=== PATIENT | female | born 2000 | race Caucasian/White ===

== ENCOUNTER 2024-12-30 14:05 | Emergency (ER) | payer SELFPAY ==
--- OUTSIDE RECORDS SUMMARY | 2024-11-24 05:35 | XMS_ITS | Encounter Summary ---
Author Organization [facility] Address [address] [place] [address] Care Team Providers Care Preforms Laminator Name Role Phone Unavailable Primary Care Provider Unavailabl e Reason for Visit * Reason Comments Oral Swelling Encounter Details Date Type Department Care Team (Late st Contact Info) Description 11/24/2024 5:35 AM EDT - 11/24/2024 8:39 AM EDT Emergency [facility] Emergency Department [address] [place] [address] Angioedema, initial encounter (Primary Dx) Discharge Disposition: Home or Self Care Social History Tobacco Use Types Packs/Day Years Used Date Smoking Tobacco: Never Smokeless Tobacco: Never Alcohol Use Standard Drinks/Week Comments Never 0 (1 standard drink = 0.6 oz pur e alcohol) [facility] Utilities Answer Date Recorded In the past 12 months has e [employer], gas, oil, or water [employer] threatened to shut off services in your home? No 07/31/2024 Hunger Vital Sign Answer Date Recorded Within the past 12 months, y ou worried that your food would run out before you got the money to buy more. Never true 07/31/19 25 Within the past 12 months, t he food you bought just didn't last and you didn't have money to get more. Never true 07/31/2024 PRAPARE - Transportation Answer Date Re corded In the past 12 months, has l ack of transportation kept you from medical appointments or from getting medications? No 11/2024 In the past 12 months, has l ack of transportation kept you from meetings, work, or from getting things needed for daily living? No 07/31/2024 [place] Depression Scale Answer Date Recorded [place] Depression Scale Total 5 08/02/2024 The thought of harming myself has occurred to me . Never 08/02/2024 Housing Stability Vital Sign Answer Benja e Recorded In the last 12 months, was t here a time when you were not able to pay the mortgage or rent on time? No 07/31/2024 In the past 12 months, how m any times have you moved where you were living? 0 07/31/2024 At any time in the past 12 m [facility], were you homeless or living in a care home (including now)? No 07/31/2024 Food Insecurity Answer Date Recorded Within the past 12 months, y ou worried that your food would run out before you got the money to buy more. 1 07/31/2024 Within the past 12 months, t he food you bought just didn't last and you didn't have money to get more. 1 07/31/2024 Interpersonal Safety Domain Source: IP Abuse Scr eening Answer Date Recorded Physical abuse Denies 07/31/2024 Verbal abuse Denies 07/31/2024 Emotional abuse Denies 07/31/2024 Financial abuse Denies 07/31/2024 Sexual abuse Denies 07/31/2024 Comments Unknown Sex and Gender Information Value Date Recorded Sex Assigned at Not on file Legal Sex Female 12:37 PM EDT Gender Identity Not on file Sexual Orientation Not on file documented as of this encounter Last Filed Vital Signs Vital Sign Reading Time Taken Comments Blood Pressure 110/74 11/24/2024 7:52 AM EDT Pulse 74 11/24/2024 7:52 AM EDT Temperature 36.4 C (97.6 F) 11/24/2024 5:43 AM EDT Respiratory Rate 16 11/24/2024 7:52 AM EDT Oxygen Saturation 98% 11/24/2024 7:52 AM EDT Inhaled Oxygen Concentration - - Weight 92.5 kg (204 lb) 11/24/2024 5:43 AM EDT Height 175.3 cm (5' 9 ) 11/24/2024 5:43 AM EDT Body Mass Index 30.13 11/24/2024 5:43 AM EDT documented in this encounter Discharge Instructions * Attachments The following attachments cannot be sent through Care Everywhere. * Angioedema (Iranian) documented in this encounter Medications at Time of Discharge ibuprofen (ADVIL;MOTRIN) 200 MG tablet Take 4 tablets by mouth every 8 hours as needed for Pain 08/02/2024 docusate sodium (COLACE, DULCOLAX) 100 MG CAPS Take 100 mg by mouth 2 times daily as needed for Constipation 08/02/2024 diphenhydrAMINE (BENADRYL) 50 MG capsule Take 1 capsule by mouth every 6 hours as needed for Itching butalbital-aceta minophen-caffein e (FIORICET, ESGIC) 50-325-40 MG per tablet Take 1 tablet by mouth every 4 hours as needed for Headaches MV-Min-Fe Fum-FA-DHA ( 1 PO) Take by mouth ondansetron (ZOFRAN) 4 MG tablet Take 1 tablet by mouth every 8 hours as needed for Nausea or Vomiting Doxylamine Succinate, Sleep, (UNISOM PO) Take by mouth documented as of this encounter Plan of Treatment Not on file documented as of this encounter Procedures Procedure Name Priority Date/Time Associated Diagnosis Comments CT SOFT TISSUE NECK W CONTRAST STAT 11/24/2024 7:59 AM EDT C1 ESTERASE INHIBITOR PANEL STAT 11/24/2024 7:33 AM EDT ANION GAP Routine 11/24/2024 6:36 AM EDT GLOMERULAR FILTRATION RATE, ESTIMATED Routine 11/24/2024 6:36 AM EDT CBC WITH AUTO DIFFERENTIAL STAT 11/24/2024 6:36 AM EDT C-REACTIVE PROTEIN STAT 11/24/2024 6: 36 AM EDT HCG, SERUM, QUALITATIVE STAT 11/24/2024 6:36 AM EDT OSMOLALITY Routine 11/24/2024 6:36 AM EDT BASIC METABOLIC PANEL STAT 11/24/2024 6:36 AM EDT documented in this encounter Results * CT SOFT TISSUE NECK W CONTRAST (11/24/2024 7:59 AM EDT) Anatomical Region Laterality Modality Neck, C-spine Computed Tomogra phy 11/24/2024 8:05 AM EDT Impressions 11/24/2024 8:[address] appearance of the neck soft tissues. This report has been created using voice recognition software. It may contain minor errors which are inherent in voice recognition technology. Electronically signed by Dr. Lani Worthington 11/24/2024 8:14 AM EDT PROCEDURE: CT SOFT TISSUE NECK W CONTRAST CLINICAL INFORMATION: upper airway swelling, shortness of breath. Recurrent airway swelling. Shortness of breath. COMPARISON: No prior study. TECHNIQUE: 3 mm axial images were obtained through the neck soft tissues after the administration of intravenous contrast. Sagittal and coronal reconstructions were obtained. All CT scans at this facility use dose modulation, iterative reconstruction, and/or weight-based dosing when appropriate to reduce radiation dose to as low as reasonably achievable. FINDINGS: The soft tissues of the nasopharynx are normal. The oropharynx is within appropriate limits. The hypopharynx is normal. The epiglottis is normal. The oral cavity and floor of mouth are normal. The vocal cords and subglottic airway are within appropriate limits. The airway is patent throughout. The thyroid gland, submandibular glands and parotid glands are within acceptable limits. There is no cervical adenopathy. There is no upper mediastinal adenopathy. There are no suspicious findings the lung apices. No suspicious osseous lesions are present. The visualized aspects of the paranasal sinuses are normally aerated. There are no gross abnormalities in the brain parenchyma. Procedure Note Lani Wright MD - 11/24/2024 PROCEDURE: CT SOFT TISSUE NECK W CONTRAST CLINICAL INFORMATION: upper airway swelling, shortness of breath.Recurrent airway swelling. Shortness of breath. COMPARISON: No prior study. TECHNIQUE: 3 mm axial images were obtained through the neck soft tissuesafter the administration of intravenous contrast. Sagittal and coronalreconstructions were obtained. All CT scans at this facility use dose modulation, iterativereconstruction, and/or weight-based dosing when appropriate to reduce radiation dose to aslow as reasonably achievable. FINDINGS: The soft tissues of the nasopharynx are normal. The oropharynx iswithin appropriate limits. The hypopharynx is normal. The epiglottis is normal.The oral cavity and floor of mouth are normal. The vocal cords andsubglottic airway are within appropriate limits. The airway is patent throughout. The thyroid gland, submandibular glands and parotid glands are withinacceptable limits. There is no cervical adenopathy. There is no upper mediastinaladenopathy. There are no suspicious findings the lung apices. No suspicious osseouslesions are present. The visualized aspects of the paranasal sinuses arenormally aerated. There are no gross abnormalities in the brain parenchyma. IMPRESSION: Normal CT appearance of the neck soft tissues. This report has been created using voice recognition software. It maycontain minor errors which are inherent in voice recognition technology. Electronically signed by Dr. Lani Wright Chris VASQUEZ IM CT ORDERABLES Final Resul t * C1 esterase inhibitor panel (11/24/2024 7:33 AM EDT) C1 Est.Inhib.Funct. 119 >=41 % 11/29 1:09 AM EDT [facility] Comment: The concentration of functional C1 esterase inhibitor (C1-INH) is reported as the percentage of the mean level in normal specimens. Concentrations greater than or equal to 68 percent mean normal are considered normal. INTERPRETIVE INFORMATION: P-[id number] Inhib. Functional 68% or greater ........ Normal 41% - 67% ............. Indeterminate 40% or less ........... Abnormal C1 Esterase Inhibitor 36 21 - 38 mg/dL 11/29/2024 1:09 AM EDT [facility] Complement Component 4 33 10 - 40 mg/dL 11/29/2024 1:09 AM EDT [facility] Comment: REFERENCE INTERVAL: Complement Component 4 Access complete set of age- and/or gender-specific reference intervals for this test in the [facility] Test Directory (Lever). Performed By: [employer] [address] [place] [address] Auction Block Clerk: Oral Rogers MD, PhD CLIA Number: [id number] Blood BLOOD SPECIMEN / Unknown 11/24/2024 7:33 AM EDT 11/24/2024 7:45 AM EDT Chris VASQUEZ CHEMISTRY ORDERABLES Final Re sult Performing Organization Address [facility] Co de Phone Number [facility] [address] [place] [address], [facility] [phone] [employer] [facility] [address] [place] [address], [facility] [phone] * Anion Gap (11/24/2024 6:36 AM EDT) Anion Gap 13.0 8.0 - 16.0 meq/L 11/24/2024 7:28 AM EDT [facility] Comment: ANION GAP = Sodium -(Chloride + CO2) Performed at [facility] [address] [place] [address] 11/24/2024 6:36 AM EDT 11/24/2024 6:46 AM EDT us Chris VASQUEZ CHEMISTRY ORDERABLES Final Re sult Performing Organization Address [facility] Co de Phone Number [facility] [address] [place] [address], [facility] [phone] [facility] [address] [place] [address], [facility] [phone] * Osmolality (11/24/2024 6:36 AM EDT) Osmolality Calc 276.2 275.0 - 300.0 mOsmol/kg 11/24/2024 7:28 AM EDT [facility] Comment:Performed at [facility] [address] [place] [address] 11/24/2024 6:36 AM EDT 11/24/2024 6:46 AM EDT us Chris VASQUEZ CHEMISTRY ORDERABLES Final Re sult Performing Organization Address [facility]/ZIP Co de Phone Number [facility] [address] [place] [address], [facility] [phone] [facility] [address] [place] [address], [facility] [phone] * Glomerular Filtration Rate, Estimated (11/24/2024 6:36 AM EDT) [facility] TanaJacquelyn Filt Rate > 90 >60 ml/min/1.7 3m2 11/24/2024 7:31 AM EDT [facility] Comment: Pediatric calculator link https://www.kidney.org/professionals/kdoqi/gfr_calculatorped Effective Apr 28, 2022 These results are not intended for use in patients <18 years of age. eGFR results are calculated without a race factor using the 2020 CKD-EPI equation. Careful clinical correlation is recommended, particularly when comparing to results calculated using previous equations. The CKD-EPI equation is less accurate in patients with extremes of muscle mass, extra-renal metabolism of creatinine, excessive creatine ingestion, or following therapy that affects renal tubular secretion. Performed at [facility] [address] [place] [address] 11/24/2024 6:36 AM EDT 11/24/2024 6:36 AM EDT us Chris VASQUEZ CHEMISTRY ORDERABLES Final Re sult Performing Organization Address [facility]/ZIP Co de Phone Number [facility] [address] [place] [address], [facility] [phone] [facility] [address] [place] [address], [facility] [phone] * HCG Qualitative, Serum (11/24/2024 6:36 AM EDT) Preg, Serum NEGATIVE NEGATIVE 11/24/2024 7:01 AM EDT [facility] Comment:Performed at [facility] [address] [place] [address] Blood BLOOD SPECIMEN / Unknown 11/24/2024 6:36 AM EDT 11/24/2024 6:46 AM EDT hCris VASQUEZ CHEMISTRY ORDERABLES Final Re sult [facility] [address] [place] [address], [facility] [phone] [facility] [address] [place] [address], [facility] [phone] * Basic Metabolic Panel (11/24/2024 6:36 AM EDT) Pathologist [facility] Sodium 139 135 - 145 meq/L 11/24/2024 7:17 AM EDT [facility] Potassium 3.9 3.5 - 5.2 meq/L 11/24/2024 7:17 AM [facility] Comment: Low level specimen hemolysis is present as indicated by the interference index on the Lyly analyzer. The reported K+ level may be falsely increased. If clinically warranted, recollection of the specimen is suggested. Chloride 101 98 - 111 meq/L 11/24/2024 7:17 AM EDT [facility] CO2 25 22 - 29 meq/L 11/24/2024 7:28 AM EDT [facility] Glucose 91 74 - 109 mg/dL 11/24/2024 7:28 AM EDT [facility] BUN 10 8 - 23 mg/dL 11/24/2024 7:28 AM EDT [facility] Creatinine 0.7 0.5 - 0.9 mg/dL 11/24/2024 7:28 AM EDT [facility] Calcium 9.7 8.6 - 10.0 mg/dL 11/24/2024 7:28 AM EDT [facility] Comment:Performed at [facility] [address] [place] [address] Blood BLOOD SPECIMEN / Unknown 11/24/2024 6:36 AM EDT 11/24/2024 6:46 AM EDT us Chris VASQUEZ CHEMISTRY ORDERABLES Final Re sult [facility] [address] [phone] [facility] [address] [place] [address], [facility] [phone] * CBC with Auto Differential (11/24/2024 6:36 AM EDT) WBC 10.1 4.8 - 10.8 thou/mm3 11/24/2024 7:01 AM T [facility] RBC 5.29 4.20 - 5.40 mill/mm3 11/24/2024 7:01 AM T [facility] Hemoglobin 15.3 12.0 - 16.0 gm/dl 11/24/2024 7:01 AM EDT [facility] Hematocrit 45.1 37.0 - 47.0 % 11/24/2024 7:01 AM EDT [facility] MCV 85.3 81.0 - 99.0 fL 11/24/2024 7:01 AM EDT [facility] MCH 28.9 26.0 - 33.0 pg 11/24/2024 7:01 AM EDT [facility] MCHC 33.9 32.2 - 35.5 gm/dl 11/24/2024 7:01 AM [facility] RDW-CV 12.3 11.5 - 14.5 % 11/24/2024 7:01 AM [facility] RDW-SD 37.8 35.0 - 45.0 fL 11/24/2024 7:01 AM [facility] Platelets 301 130 - 400 thou/mm3 11/24/2024 7:01 AM [facility] MPV 10.5 9.4 - 12.4 fL 11/24/2024 7:01 AM [facility] Seg Neutrophils 69.2 % 7:01 AM [facility] Lymphocytes 20.8 % 11/24/2024 7:01 AM [facility] Monocytes % 7.2 % 11/24/2024 7:01 AM [facility] Eosinophils 1.6 % 11/24/2024 7:01 AM [facility] Basophils 0.7 % 11/24/2024 7:01 AM [facility] Immature Granulocytes % 0.5 % 11/24/2024 7:01 AM [facility] Neutrophils Absolute 7.0 1.8 - 7.7 thou/mm3 11/24/2024 7:01 AM [facility] Lymphocytes Absolute 2.1 1.0 - 4.8 thou/mm3 11/24/2024 7:01 AM [facility] Monocytes Absolute 0.7 0.4 - 1.3 thou/mm3 11/24/2024 7:01 AM [facility] Eosinophils Absolute 0.2 0.0 - 0.4 thou/mm3 11/24/2024 7:01 AM EDT [facility] Basophils Absolute 0.1 0.0 - 0.1 thou/mm3 11/24/2024 7:01 AM EDT [facility] Immature Grans (Abs) 0.05 0.00 - 0.07 thou/mm3 11/24/2024 7:01 AM EDT [facility] nRBC 0 /100 wbc 11/24/2024 7:01 AM EDT [facility] Comment:Performed at [facility] [address] [place] [address] Blood BLOOD SPECIMEN / Unknown 11/24/2024 6:36 AM EDT 11/24/2024 6:46 AM EDT us Chris VASQUEZ HEMATOLOGY ORDERABLES Final R esult [facility] [address] [place] [address] [facility] [address] [place] [address] * (ABNORMAL) C-Reactive Protein (11/24/2024 6:36 AM EDT) CRP 0.58(H) 0.00 - 0.50 mg/dl 11/24/2024 9:13 AM EDT [facility] Comment:Performed at [facility] [address] [place] [address] Blood BLOOD SPECIMEN / Unknown 11/24/2024 6:36 AM EDT 11/24/2024 6:46 AM EDT us Chris VASQUEZ CHEMISTRY ORDERABLES Final Re sult Performing Organization Address [facility]/ZIP Co de Phone Number [facility] [address] [place] [address], [facility] [phone] [facility] [address] [id number], [facility] [phone] documented in this encounter Visit Diagnoses Diagnosis Angioedema, initial encounter- Primary documented in this encounter Administered Medications Inactive Administered Medications - up to 3 most recent administrations Medication Order MAR Action Action Date Dose Rate Site famotidine (PEPCID) 20 MG/2ML 20 mg in sodium chloride (PF) 0.9 % 10 mL injection 20 mg, IntraVENous, ONCE, 1 dose, On Wendy 11/24/24 at 0645, IV Push over minimum of 2 minutes - Dilute with 10 mL NS Given 11/24/2024 6:54 AM EDT 20 mg iopamidol (ISOVUE-370) 76 % injection 80 mL 80 mL, IntraVENous, IMG ONCE PRN, 1 dose, Starting on Wendy 11/24/24 at 0646, Until Wendy 11/24/24 at 0757, Other Given 11/24/2024 7:57 AM EDT 80 mLs methylPREDNISolone sodium succ (SOLU-MEDROL) 125 mg in sterile water 2 mL injection 125 mg, IntraVENous, ONCE, On Wendy 11/24/24 at 0645, For 1 dose, Reconstitute 125 mg vial with 2 mL diluent. Given 11/24/2024 6:56 AM EDT 125 mg documented in this encounter Active and Recently Administered Medications Times are shown in EDT. Scheduled Medication Order 11/22/2024 11/23/2024 11/24/2024 famotidine (PEPCID) 20 MG/2ML 20 mg in sodium chloride (PF) 0.9 % 10 mL injection (COMPLETED) 20 mg, IntraVENous, ONCE, 1 dose, On Wendy 11/24/24 at 0645, IV Push over minimum of 2 minutes - Dilute with 10 mL NS 0654 (Given - Provid er: Kalin Mathew RN) methylPREDNISolone sodium succ (SOLU-MEDROL) 125 mg in sterile water 2 mL injection (COMPLETED) 125 mg, IntraVENous, ONCE, On Wendy 11/24/24 at 0645, For 1 dose, Reconstitute 125 mg vial with 2 mL diluent. 0656 (Given - Provid er: Kalin Mathew RN) PRN Medication Order 11/22/2024 11/23/2024 11/24/2024 iopamidol (ISOVUE-370) 76 % injection 80 mL (COMPLETED) 80 mL, IntraVENous, IMG ONCE PRN, 1 dose, Starting on Wendy 11/24/24 at 0646, Until Wendy 11/24/24 at 0757, Other 0757 (Given - Provid er: Rocio Tompkins) documented in this encounter
[2024-12-30] VITALS (8 sets, daily range): BP systolic 75–127; BP diastolic 55–80; PULSE 72–101; RESP 16–17; TEMP 36.6–36.8; O2SAT 90–98; BMI 30.2
--- NOTE | 2024-12-30 14:09 | US_ITS ---
PROCEDURE INFORMATION: Exam: US , Transvaginal Exam date and time: 12/30/2024 3:56 PM Age: 24 years old Clinical indication: Lmp or gestational age (in weeks): 4w5d; Other: Bleeding; ; Additional info: Pos preg test, bleeding LABS AND CLINICAL REPORTS: Last menstrual period start date: 11/27/2024 Gestational age (Established): 4 w 5 d Estimated due date (Established): 09/03/2025 TECHNIQUE: Imaging protocol: Real-time transvaginal obstetrical ultrasound of the maternal pelvis with image documentation. Transvaginal imaging was used for better evaluation of the fetus, adnexa, and/or cervix. COMPARISON: No relevant prior studies available. FINDINGS: Gestation: No intrauterine gestational sac, yolk sac, or pole identified. No heart activity. MATERNAL: Right ovary/adnexa: Right ovary measures 1.45 cm x 1.01 cm x 1.21 cm. Right ovarian volume is 0.93 mL. Blood flow noted. Left ovary/adnexa: Left ovary measures 1.21 cm x 1.32 cm x 1 cm. Left ovarian volume is 0.84 mL. Blood flow noted. Thickened endometrial cavity measuring up to 2 cm with complex inhomogeneous hyperechoic material within the endometrial cavity. No internal blood flow. IMPRESSION: No IUP identified. Thickened endometrium with complex hyperechoic material that may reflect hemorrhage or retained products of conception related to a recent miscarriage given bleeding history. In the setting of positive test with no visible IUP ectopic can not be totally excluded. The possibility of early IUP is also a consideration. Advise correlation with serial hCGs and consider follow-up ultrasound in 4-6 weeks.
[2024-12-30 14:17] LABS: Microscopic, Urine URINE MICROSCOPIC (MICROSCOPIC)
[2024-12-30 14:18] LABS: Appearance,Urine TURBID (Clear); Bilirubin,Urine Negative (Negative); Blood, Urine 3+ (Negative); Color,Urine RED (Yellow); Glucose,Urine (UA) Negative (Negative); Ketones,Urine TRACE (Negative); Leukocyte Esterase,Urine TRACE (Negative); Nitrate,Urine POSITIVE (Negative); PH,Urine 5.5 (5.0-8.5); Protein,Urine 2+ (Negative); Specific Gravity, Urine >= 1.030 (1.005-1.030)
--- NOTE | 2024-12-30 14:20 | ED_ITS ---
Discharge Plan Disposition Patient Disposition: Home, Self-Care Prescriptions Prescriptions: New nitrofurantoin monohyd/m-cryst 100 mg capsule 100 mg PO BID 5 Days Qty: 10 0RF Rx Instructions: must administer with a meal/food Referrals Follow up/Referrals: Elisabeth France DO [Staff Physician, [facility]] - See instructions Amanda Sahni APRN [Primary Care Provider, Medical] - See instructions Activity Restrictions/Add. Instructions Additional Instructions/Restrictions: As discussed there were findings on your ultrasound that suggest that you likely had a recent miscarriage however your quantitative hCG level was just above upper limits of detection suggesting that you are either not or essentially have a completed miscarriage. Cannot definitively rule out an ectopic but this is incredibly unlikely. Please make sure you are following up closely within 48 hours to an [facility] doctor return with any significant worsening abdominal pain or other concerns. Clinical Impressions Clinical Impression: Incomplete , UTI (urinary tract infection) Print Language Print Language: Nepali Discharge ED Provider: Ana Resendiz General Adult HPI <Ana Resendiz DO - Last Filed: 12/30/24 14:59> General Chief complaint: Vaginal Bleeding Stated complaint: + preg test, bleeding Time Seen by Provider: 12/30/24 14:09 History of Present Illness HPI narrative: This patient is a 24-year-old G2, P1 at estimated 4 weeks gestation by last menstrual period (November 27-) presented to the emergency department for evaluation with concern for vaginal bleeding and pelvic pain/cramping. Patient notes she had a positive test at home 2 days ago and started having some pain/cramping and bleeding today. She has a 5-month-old baby at home and did have to receive RhoGAM with prior . No other concerns or complaints noted Related Data Previous Rx's ?Medication ?Instructions ?Recorded nitrofurantoin 100 mg PO BID 5 days #10 cap s 12/30/24 monohydrate/macrocrystals 100 mg capsule Allergies Allergy/AdvReac Type Severity Reaction Status Date / Time No Known Drug Allergies Allergy Verified 12/30/24 15:03 PFSH <Ana Resendiz DO - Last Filed: 12/30/24 14:59> [facility] Disclaimer: The information contained in this section may have been updated after the patient was seen, as this information can be updated by other users. Social History (Updated 12/30/24 @ 14:59 by Ana Resendiz DO) Smoking Status: Never smoker alcohol intake: never current occupational status: employed Travel in the last 8 weeks?: None Have you lived/traveled outside US in past 30 days?: No Contact w/someone who lives/traveled outside US past 30 days?: No Exposure to someone with infectious disease in past 14 days?: No Do you have a fever (greater than 100.4 F or 38 C)?: No Have you tested positive for COVID-19?: No Exposed to someone with COVID-19 in past 14 days?: No Do you have a sore throat?: No Do you have a cough?: No Do you have any weakness?: No Do you have any diarrhea?: No Are you experiencing any unusual bleeding?: No Do you have any muscle aches/pain?: No Do you have any abdominal pain?: No Are you experiencing loss of taste or smell?: No <Ana Resendiz DO - Last Filed: 12/30/24 14:59> ROS Obtained: Yes All systems reviewed & no additional complaints except as documented Physical Exam <Ana Resendiz DO - Last Filed: 12/30/24 14:59> General General appearance: alert and in no apparent distress Head Head exam: atraumatic and normocephalic Eye Eye exam: Present normal appearance, PERRL and EOMI ENT ENT exam: Present normal exam, normal oropharynx, mucous membranes moist and normal external ear exam Neck Neck exam: Present normal inspection, full ROM and trachea midline; Absent tenderness Chest Chest inspection: Present normal inspection and symmetric chest wall rise; Absent tenderness Respiratory Respiratory exam: Present normal lung sounds bilaterally; Absent respiratory distress, wheezes, stridor or accessory muscle use Cardiovascular Cardiovascular exam: Present regular rate and normal rhythm Abdominal Exam Abdominal exam: Present soft; Absent distention, tenderness or guarding Extremities Exam Extremities exam: Present normal inspection, full ROM and normal capillary refill; Absent tenderness or edema Back Exam Back exam: Present normal inspection and full ROM; Absent tenderness Neurological Exam Neurological exam: Present alert, oriented X3, CN II-XII intact and normal gait; Absent motor sensory deficit Psychiatric Psychiatric exam: Present normal affect and normal mood Skin Skin exam: Present warm and dry Medical Decision Making <Ana Resendiz DO - Last Filed: 12/30/24 14:59> Medical Records Medical records reviewed: Yes I reviewed the patient's medical records. Screening: Per USPSTF and CDC recommendations, given the prevalence of disease in our region, it is our hospital?s policy to screen for HIV and viral Hepatitis for all patients aged 18 and over and those with ongoing risk factors. [place] Inquiry Pt receiving controlled substance: No Vital Signs: 12/30/24 14:15 12/30/24 14:22 12/30/24 14:22 Temperature 98 F 98 F Temperature Source Oral Oral Pulse Rate 89 92 H Pulse Rate [Right] 92 H Respiratory Rate 16 17 Blood Pressure 120/79 120/79 Blood Pressure [Right Arm] 120/79 Blood Pressure Mean [Right Arm] 92 Blood Pressure Source Automatic Cuff Blood Pressure Source [Right Arm] Automatic Cuff Blood Pressure Position Supine Blood Pressure Position [Right Arm] Supine 02 Sat by Pulse Oximetry 98 98 98 Oxygen Delivery Method Room Air Room Air 12/30/24 14:30 12/30/24 15:00 12/30/24 15:30 Temperature Temperature Source Pulse Rate 100 H 90 72 Pulse Rate [Right] Respiratory Rate Blood Pressure 127/80 112/76 108/72 L Blood Pressure [Right Arm] Blood Pressure Mean [Right Arm] Blood Pressure Source Blood Pressure Source [Right Arm] Blood Pressure Position Blood Pressure Position [Right Arm] 02 Sat by Pulse Oximetry 96 96 97 Oxygen Delivery Method 12/30/24 16:01 12/30/24 16:04 Temperature Temperature Source Pulse Rate 75 97 H Pulse Rate [Right] Respiratory Rate Blood Pressure 103/66 L 75/55 L Blood Pressure [Right Arm] Blood Pressure Mean [Right Arm] Blood Pressure Source Blood Pressure Source [Right Arm] Blood Pressure Position Blood Pressure Position [Right Arm] 02 Sat by Pulse Oximetry 97 90 L Oxygen Delivery Method Lab Data Lab results reviewed: Yes I reviewed the patient's lab results. Lab Results 12/30/24 14:10: WBC 7.3, RBC 5.04, Hgb 14.5, Hct 43.3, MCV 85.9, MCH 28.8, MCHC 33.5, RDW 12.0, Plt Count 300, MPV 10.7 H, Neut % (Auto) 68.8, Lymph % (Auto) 23.8, [place] % (Auto) 5.1, Eos % (Auto) 1.2, Baso % (Auto) 0.8, Neut # (Auto) 5.0, Lymph # (Auto) 1.7, [place] # (Auto) 0.4, Eos # (Auto) 0.1, Baso # (Auto) 0.1, Sodium 137, Potassium 4.1, Chloride 104, Carbon Dioxide 28, Anion Gap 9.1, BUN 12, Creatinine 0.70, Estimated GFR 101, Est GFR ( Amer) 122, Glucose 103 H, Calcium 9.1, Total Bilirubin 0.5, AST 36, ALT 42, Alkaline Phosphatase 101, Total Protein 8.0, Albumin 4.5, Globulin 3.5 H, Albumin/Globulin Ratio 1.3, HCG, Quant 9 H, Blood Type A Negative 12/30/24 14:11: Urine Color Red, Urine Appearance Turbid, Urine pH 5.5, Ur Specific [place] >= 1.030, Urine Protein 2+ A, Urine Glucose (UA) Negative, Urine Ketones Trace, Urine Blood 3+ A, Urine Nitrate Positive A, Urine Bilirubin Negative, Urine Urobilinogen 1.0, Ur Leukocyte Esterase Trace, Urine RBC Tntc, Urine WBC Occasional, Ur Squamous Epith Cells Occasional, Urine Bacteria Trace 12/30/24 14:10 12/30/24 14:10 Orders (Tests/Meds): ORDERS Category Date Time Status ABO/RH Type Stat BBK 12/30/24 14:10 Completed Beta HCG, Quant [HCG,Quantitative] Stat Lab 12/30/24 14:10 Completed Complete Blood Count Auto Diff Stat Lab 12/30/24 14:10 Completed Comprehensive Metabolic Panel Stat Lab 12/30/24 14:10 Completed UA [Urinalysis and Microscopic] Stat Lab 12/30/24 14:11 Completed Urine Culture Stat Micro 12/30/24 14:11 Received US OB transvaginal Stat Ultrasound 12/30/24 14:09 Completed Medical Decision Narrative: In summary, this patient is a 24-year-old female presenting to the Emergency Department for evaluation of pelvic pain and vaginal bleeding in the setting of possible early with positive test at home. Differential diagnoses considered include but are not limited to ectopic , threatened , missed , implantation bleeding. Ruling out the most morbid conditions drove assessment. On exam, the patient is well-appearing. She is lying in bed in no acute distress with benign abdominal exam, no localizable tenderness. She is hemodynamically stable with reassuring vitals. Workup included CBC, CMP, quantitative hCG, urinalysis, ABO/Rh type, and transvaginal ultrasound. Patient care was signed out to Dr. Spence pending workup. <Daren Spence MD - Last Filed: 12/30/24 17:31> Vital Signs: 12/30/24 14:15 12/30/24 14:22 12/30/24 14:22 Temperature 98 F 98 F Temperature Source Oral Oral Pulse Rate 89 92 H Pulse Rate [Right] 92 H Respiratory Rate 16 17 Blood Pressure 120/79 120/79 Blood Pressure [Right Arm] 120/79 Blood Pressure Mean [Right Arm] 92 Blood Pressure Source Automatic Cuff Blood Pressure Source [Right Arm] Automatic Cuff Blood Pressure Position Supine Blood Pressure Position [Right Arm] Supine 02 Sat by Pulse Oximetry 98 98 98 Oxygen Delivery Method Room Air Room Air 12/30/24 14:30 12/30/24 15:00 12/30/24 15:30 Temperature Temperature Source Pulse Rate 100 H 90 72 Pulse Rate [Right] Respiratory Rate Blood Pressure 127/80 112/76 108/72 L Blood Pressure [Right Arm] Blood Pressure Mean [Right Arm] Blood Pressure Source Blood Pressure Source [Right Arm] Blood Pressure Position Blood Pressure Position [Right Arm] 02 Sat by Pulse Oximetry 96 96 97 Oxygen Delivery Method 12/30/24 16:01 12/30/24 16:04 Temperature Temperature Source Pulse Rate 75 97 H Pulse Rate [Right] Respiratory Rate Blood Pressure 103/66 L 75/55 L Blood Pressure [Right Arm] Blood Pressure Mean [Right Arm] Blood Pressure Source Blood Pressure Source [Right Arm] Blood Pressure Position Blood Pressure Position [Right Arm] 02 Sat by Pulse Oximetry 97 90 L Oxygen Delivery Method Lab Data Lab Results 12/30/24 14:10: WBC 7.3, RBC 5.04, Hgb 14.5, Hct 43.3, MCV 85.9, MCH 28.8, MCHC 33.5, RDW 12.0, Plt Count 300, MPV 10.7 H, Neut % (Auto) 68.8, Lymph % (Auto) 23.8, [place] % (Auto) 5.1, Eos % (Auto) 1.2, Baso % (Auto) 0.8, Neut # (Auto) 5.0, Lymph # (Auto) 1.7, [place] # (Auto) 0.4, Eos # (Auto) 0.1, Baso # (Auto) 0.1, Sodium 137, Potassium 4.1, Chloride 104, Carbon Dioxide 28, Anion Gap 9.1, BUN 12, Creatinine 0.70, Estimated GFR 101, Est GFR ( Amer) 122, Glucose 103 H, Calcium 9.1, Total Bilirubin 0.5, AST 36, ALT 42, Alkaline Phosphatase 101, Total Protein 8.0, Albumin 4.5, Globulin 3.5 H, Albumin/Globulin Ratio 1.3, HCG, Quant 9 H, Blood Type A Negative 12/30/24 14:11: Urine Color Red, Urine Appearance Turbid, Urine pH 5.5, Ur Specific [place] >= 1.030, Urine Protein 2+ A, Urine Glucose (UA) Negative, Urine Ketones Trace, Urine Blood 3+ A, Urine Nitrate Positive A, Urine Bilirubin Negative, Urine Urobilinogen 1.0, Ur Leukocyte Esterase Trace, Urine RBC Tntc, Urine WBC Occasional, Ur Squamous Epith Cells Occasional, Urine Bacteria Trace Orders (Tests/Meds): ORDERS Category Date Time Status ABO/RH Type Stat BBK 12/30/24 14:10 Completed Beta HCG, Quant [HCG,Quantitative] Stat Lab 12/30/24 14:10 Completed Complete Blood Count Auto Diff Stat Lab 12/30/24 14:10 Completed Comprehensive Metabolic Panel Stat Lab 12/30/24 14:10 Completed UA [Urinalysis and Microscopic] Stat Lab 12/30/24 14:11 Completed Urine Culture Stat Micro 12/30/24 14:11 Received US OB transvaginal Stat Ultrasound 12/30/24 14:09 Completed Medical Decision Narrative: In summary, this patient is a 24-year-old female presenting to the Emergency Department for evaluation of pelvic pain and vaginal bleeding in the setting of possible early with positive test at home. Differential diagnoses considered include but are not limited to ectopic , threatened , missed , implantation bleeding. Ruling out the most morbid conditions drove assessment. On exam, the patient is well-appearing. She is lying in bed in no acute distress with benign abdominal exam, no localizable tenderness. She is hemodynamically stable with reassuring vitals. Workup included CBC, CMP, quantitative hCG, urinalysis, ABO/Rh type, and transvaginal ultrasound. Patient care was signed out to Dr. Spence pending workup. Reassessment at 5:30 PM patient remains very stable on my serial clinical assessment her quantitative hCG is 9 which is just above the limits of detection so either patient was not or has essentially completed miscarriage at this point. Ultrasound not demonstrate any intrauterine products but did show some thickening of the endometrium consistent with likely recent miscarriage. Given her history of bleeding and some loss of tissue most likely that is the explanation. Cannot definitively rule out an ectopic but this is exceedingly unlikely. She has been advised to follow-up closely with [facility] doctor. Additionally patient had positive nitrites and she has been having difficult time noting whether or not she has been having abnormal or abnormal urination and therefore the patient will be given antibiotics. Patient was reassured about was going on understood everything and will follow-up closely with her [facility] doctor. Lastly patient is less than 12 weeks which with new a cog guidelines suggest that RhoGAM is no longer indicated. This was explained to the patient. Critical Care <Ana Resendiz, - Last Filed: 12/30/24 14:59> Critical Care Time Critical Care Time: No
[2024-12-30 14:26] LABS: RBC,Urine TNTC #/hpf (0-3)
[2024-12-30 14:28] LABS: Squamous Epithelial Cell,Urine Occasional #/hpf (0-5); WBC,Urine Occasional #/hpf (0-3)
[2024-12-30 14:30] LABS: Bacteria,Urine Trace /lpf
[2024-12-30 14:46] LABS: Alanine Aminotransferase 42 U/L (12-78); Albumin Level 4.5 g/dl (3.5-5.0); Albumin/Globulin Ratio 1.3 (1.1-1.8); Alkaline Phosphatase 101 U/L (38-126); Anion Gap 9.1 mEq/L (5-15); Aspartate Amino Transferase 36 U/L (14-36); Bilirubin,Total 0.5 mg/dl (0.2-1.3); Blood Urea Nitrogen 12 mg/dl (7-17); Calcium 9.1 mg/dl (8.4-10.2); Carbon Dioxide 28 mmol/L (22.0-30.0); Chloride 104 mmol/L (98-107); Estimated Glomerular Filt Rate 101 ml/min (>60); GFR (African American) 122 ML/MIN (>60); Globulin 3.5 g/dL (1.3-3.2); Glucose 103 mg/dl (74-100); Potassium 4.1 mmoL/L (3.5-5.1); Sodium 137 mmol/L (136-145)
[2024-12-30 14:49] LABS: Basophils # 0.1 K/mm3 (0-0.2); Basophils % 0.8 % (0.1-2.0); Eosinophils # 0.1 Kmm3 (0.0-0.4); Eosinophils % 1.2 % (0.1-12.0); Hematocrit 43.3 % (37.0-47.0); Hemoglobin 14.5 g/dL (12.2-16.2); Immature Granulocytes # 0.02 10^3uL; Immature Granulocytes % 0.3 %; Lymphocytes # 1.7 K/mm3 (0.7-4.5); Lymphocytes % 23.8 % (10-50); Mean Corpuscular HGB Conc 33.5 g/dL (31.8-35.4); Mean Corpuscular Hemoglobin 28.8 pg (27.0-31.2); Mean Corpuscular Volume 85.9 fl (81-99); Mean Platelet Volume 10.7 fl (7.4-10.4); Monocytes # 0.4 K/mm3 (0.1-1.0); Monocytes % 5.1 % (1.7-9.3); Neutrophils % 68.8 % (37.0-80.0); Nucleated Red Blood Cells # 0 10^3/uL; Nucleated Red Blood Cells % 0 %; Platelet Count 300 K/mm3 (142-424); Red Blood Count 5.04 M/mm3 (4.20-5.40); Red Cell Distribution Width-SD 37.6 fL; White Blood Count 7.3 K/mm3 (4.8-10.8)
--- OUTSIDE RECORDS SUMMARY | 2024-12-30 14:54 | XMS_ITS | Continuity of Care Document ---
Author Organization DANIEL MYERS [facility] Address [address] [place] [address] Care Team Providers Care Biometric Screener Name Role Phone GRAZYNA HARDEN Primary Care Provider Unavaila ble Assessment No assessment recorded. Plan of Treatment Reminders Order Date Submit Date Provider Last Modified By Organization Details Last Modified Time Details Appointments None recorded. Lab respiratory allergen panel - [facility] a 2024 025 LISA [facility], [address], [place] [address], [place], [address], 5 15:11:30 unlisted lab - allergy profile, food 2024 025 LISA [facility], [address], [place] [address], [place], [address], 5 15:11:28 HASEEB (antinuclea r antibodies) screen, serum 2024 025 LISA [facility], [address], [address], [place], [address], 5 15:11:29 ESR (erythrocyt e sedimentati on rate), blood 2024 025 LISA [facility], [address], [address] [address], [place], [address], 5 15:11:31 C reactive protein, QN, serum or plasma 2024 025 LISA [facility], [address], [place] [address], [place], [address], 15:11:31 Referral None recorded. Procedures None recorded. Surgeries None recorded. Imaging None recorded. Medication Orders None recorded. Patient TargetsNo targets recorded. Patient InstructionsNo instructions recorded. Reason for Referral None Reported. Problems Name Problem SNOMED Code Status Onset Date Resolution Date Notes Provider Name and Address Organization Details Recorded Time Allergy to food 854316999 Active DANIEL Scott [facility] & [place] 16:14:28 Problem Notes None recorded. Procedures Surgical History Date Name Laterality Status Provider Name and Address Organization Details Recorded Time endoscopic balloon dilation of ostium of paranasal sinus completed Pretty Thomas [facility] & [place] 12/26/2024 11:18:52 Imaging Results None recorded. Procedure Notes None recorded. Medical Equipment None Reported. Allergies Allergen ID Allergen Name Allergen Category Reaction Reaction Severity Criticality Documentation Date Start Date Code Code System Note Provider Name and Address Organization Details Recorded Time 278767 shellfish derived food,medi cation Not available Not available Not available 12/28/2024 96207 Ivan coy [facility] & [place] 16:11:37 448611 house dust mite environme nt Not available Not available Not available 12/28/2024 23355 MARÍA ELENA coy [facility] & [place] 16:11:48 055982 cat dander environme nt Not available Not available Not available 12/28/2024 21887 Ivan coy [facility] & [place] 16:12:13 577860 cockroach environme nt Not available Not available Not available 12/28/2024 33645 9 DANIEL Trinidad [facility] & [place] 16:12:21 272275 scallop allergeni c extract food Not available Not available Not available 12/28/2024 96499 6 RxNorm DANIEL Mariscal [facility] & [place] 06/04/202 5 16:12:30 Medications Name Sig Start Date Stop Date Status Note LastModified by Organization Details LastModified Time Pepcid 40 mg tablet Take 1 tablet every day by oral route. active OTC Not Available Not Available No t Available Milena Allergy 180 mg tablet Take 1 tablet every day by oral route. active OTC Not Available Not Available No t Available EpiPen 2-Latrell 0.3 mg/0.3 mL injection , auto-inje ctor Take 0.3 mg as needed by injection route as directed for 30 days. 025 active Not Available Not Available Not Avai lable Vitals Date Recorded Body height Body mass index (BMI) Body weight Body temperature Oxygen saturation Oxygen saturation in Arterial blood by Pulse oximetry Respiratory rate Heart rate Systolic blood pressure Diastolic blood pressure Provider Name and Address Organization Details Last Updated DateTime 5 175.26 cm 30.3 kg/m2 73382.1 4 g 98.8 [degF] 98 % 98 % 16 /min 126 /min 118 mm[Hg] 62 mm[Hg] Pretty Guzman [facility] & [place] 5 11:21:06 Social History Question Answer Notes LastModified by [employer] Details LastModified Time Tobacco Smoking Status Never Smoker Pretty Guzman [facility] [place] 12/26/2024 11:14:34 Do You Have An Advance Directive? No [email or web address] Information not available 12/26/2024 Are You Blind Or Do You Have Difficulty Seeing? No [email or web address] Information not available 12/26/2024 What Is Your Level Of Caffeine Consumption? Moderate [email or web address] Information not available 12/26/2024 What Type Of Diet Are You Following? REGULAR [email or web address] Information not available 12/26/2024 Are You Passively Exposed To Smoke? No [email or web address] Information not available 12/26/2024 Sex: Female Functional Status Question Answer Note LastModified by [employer] Details LastModified Time Do you use any illicit or recreational drugs? No [email or web address] Information not available 12/26/2024 Do you or have you ever used any other forms of tobacco or nicotine? No [email or web address] Information not available 12/26/2024 What is your level of alcohol consumption? Occasional [email or web address] Information not available 12/26/2024 Do you or have you ever used smokeless tobacco? Never used smokeless tobacco [email or web address] Information not available 12/26/2024 What is your exercise level? Occasional [email or web address] Information not available 12/26/2024 Mental Status Question Answer Note LastModified by Organization D etails LastModified Time Do you feel stressed (tense, restless, nervous, or anxious, or unable to sleep at night)? [id number] Information not available 12/26/2024 Family History Relationship Description Onset Age of this Age Resolved Age Notes LastModified by Organization Details LastModified Time Mother Multiple sclerosis [email or web address] Not available 08/2024 11:15:54 Sister [place] thyroiditis [email or web address] Not available 0 12/26/2024 11:16:18 Paternal Grandmother Diabetes mellitus [email or web address] Not available 08/2024 11:16:53 Maternal Grandfather Malignant tumor of stomach [email or web address] Not available 08/2024 11:17:32 Paternal Grandfather Neoplasm of brain [email or web address] Not available 08/2024 11:17:44 Medical History Condition Response Other Y Psychiatric/Mental Health Condition Y Gynecological History Statement/Question Response Abnormal Pap N Date of LMP 12/22/2024 Sexually Active? Y Obstetrics History GPAL:G 0 P 0 0 0 0 Past Encounters Encounter ID Performer Location Encounter Start Date Encounter Closed Date Diagnosis/Indication Diagnosis SNOMED-CT Code Diagnosis ICD10 Code Diagnosis Note [id number] MD [facility] [address] [place] [address] 12/26/2024 10:55:58 12/26/2024 12:26:59 History of angioedema 0538667039 108 Z87.898 As stated in HPI, patient presents today with concerns regarding multiple incidences of angioedema over the last 9 years with no real workup as to the cause. Laboratory assessment has been ordered, will await results to determine further treatment plan. Standardiz ed adult depression screening tool completed [id number] 69254 Z13.31 Negative PHQ-9. Health Concerns Section Related Observation LastModified by Organization Detai ls LastModified Time None Recorded Concern Status LastModified by Organization Details LastModified Time None Recorded Payers Encounter Date Sequence Insurance Name Policy Number Policy Worthy Covered Member ID Worthy Member ID Guarantor Name 12/26/2024 1 *SELF PAY* Jenny Le Notes Date Note Type Note Provider Name and Address Organization Details Recorded Time 12/26/2024 text/html Patient is a 24-year-old female who presents today to [facility]. Patient also presents today with concerns regarding multiple incidences of angioedema with associated dysphagia over the last 9 years. She states that she typically has monthly episodes, some of which have been treated with OTC Benadryl but some that have landed her in the emergency room. She states that she has spoken with previous primary care providers in regards to this but other than allergy testing, she has not had any further workup. SOLITARIO PASTRANA, DORITA [address], [place], [address], [place] - [facility] & [place] 12/26/2024 14:00:49 OBGyn Episode No OBEpisode recorded.
--- OUTSIDE RECORDS SUMMARY | 2024-12-30 14:54 | XMS_ITS | Data Portability ---
Author Organization [place] - [facility] Address [address] [place] [address] Care Team Providers Care Destaticizer Feeder Name Role Phone GRAZYNA HARDEN Primary Care Provider Unavaila ble Assessment No assessment recorded. Plan of Treatment Reminders Order Date Submit Date Provider Last Modified By Organization Details Last Modified Time Details Appointments None recorded. Lab respiratory allergen panel - [facility] 2024 025 LISA [facility], [address], [address], [place], [address], 5 15:11:30 unlisted lab - allergy profile, food 2024 025 LISA [facility], [address], [place] [address], [place], [address], 5 15:11:28 HASEEB (antinuclea r antibodies) screen, serum 2024 025 LISA [facility], [address], [place] [address], [place], [address], 5 15:11:29 ESR (erythrocyt e sedimentati on rate), blood 2024 025 LISA [facility], [address], [address] [address], [place], [address], 5 15:11:31 C reactive protein, QN, serum or plasma 2024 025 LISA [facility], [address], [place] [address], [place], [address], 15:11:31 Referral None recorded. Procedures None recorded. Surgeries None recorded. Imaging None recorded. Medication Orders None recorded. Patient TargetsNo targets recorded. Patient InstructionsNo instructions recorded. Reason for Referral None Reported. Results Created Date Observation Date Name Description Value Unit Range Abnormal Flag Note LastModifiedBy Organization Detail LastModifiedTime 12/27/1912/27/2024 ALLER GY PROFI LE, FOOD class description COMMEN T Level s of Speci fic IgE Class Descr iptio n of Class ----- ----- ----- ----- ----- -- ----- ----- ----- ----- ----- < 0.10 0 Negat mallorie 0.10 - 0.31 0/I Equiv ocal/ Low 0.32 - 0.55 I Low 0.56 - 1.40 II Moder ate 1.41 - 3.90 III High 3.91 - 19.00 IV Very High 19.01 - 100.0 0 V Very High >100. 00 Very High Not Available [facility] ([facility]) [address] [place], [address], 12/28/2024 15:11:28 12/27/19 25 12/28/2024 ALLER GY PROFI LE, FOOD I619-OlI soybean <0.10 kU/L class 0 Not Available [facility] ([facility]) [address] [place], [address], 12/28/2024 15:11:28 12/27/19 25 12/28/2024 ALLER GY PROFI LE, FOOD C694-LdP almond <0.10 kU/L class 0 Not Available [facility] ([facility]) [address] [place], [address], 12/28/2024 15:11:28 12/27/19 25 12/28/2024 ALLER GY PROFI LE, FOOD O512-BqQ codfish <0.10 kU/L class 0 Not Available [facility] ([facility]) [address] [facility], [place], [address], 12/28/2024 15:11:28 12/27/19 25 12/28/2024 ALLER GY PROFI LE, FOOD C733-JpO salmon <0.10 kU/L class 0 Not Available [facility] ([facility]) [address] [place], [address], 12/28/2024 15:11:28 12/27/19 25 12/28/2024 ALLER GY PROFI LE, FOOD L858-EhS tuna <0.10 kU/L class 0 Not Available [facility] ([facility]) [address] [place], [address], 12/28/2024 15:11:28 12/27/19 25 12/28/2024 ALLER GY PROFI LE, FOOD E438-TrJ scallop 0.19 kU/L class 0/I abnormal Not Available [facility] ([facility]) [address] [place], [address], 12/28/2024 15:11:28 12/27/19 25 12/28/2024 ALLER GY PROFI LE, FOOD N826-GbR shrimp 8.96 kU/L class IV abnormal Not Available [facility] ([facility]) [address] [place], [address], 12/28/2024 15:11:28 12/27/19 25 12/28/2024 ALLER GY PROFI LE, FOOD U924-DnU milk <0.10 kU/L class 0 Not Available [facility] ([facility]) [address] [place], [address], 12/28/2024 15:11:28 12/27/19 25 12/28/2024 ALLER GY PROFI LE, FOOD E561-YlI egg white <0.10 kU/L class 0 Not Available [facility] ([facility]) [address] [place], [address], 12/28/2024 15:11:28 12/27/19 25 12/28/2024 ALLER GY PROFI LE, FOOD P730-SgN sesame seed <0.10 kU/L class 0 Not Available [facility] ([facility]) [address] [facility], [place], [address], 12/28/2024 15:11:28 12/27/19 25 12/28/2024 ALLER GY PROFI LE, FOOD W800-ElX peanut <0.10 kU/L class 0 Not Available [facility] ([facility]) [address] [facility], [place], [address], 12/28/2024 15:11:28 12/27/19 25 12/28/2024 ALLER GY PROFI LE, FOOD X579-OuD hazelnut (filbert) <0.10 kU/L class 0 Not Available [facility] ([facility]) [address] [facility], [place], [address], 12/28/2024 15:11:28 12/27/19 25 12/28/2024 ALLER GY PROFI LE, FOOD L746-SxK walnut <0.10 kU/L class 0 Not Available [facility] ([facility]) [address] [place], [address], 12/28/2024 15:11:28 12/27/19 25 12/28/2024 ALLER GY PROFI LE, FOOD J986-ByK cashew nut <0.10 kU/L class 0 Not Available [facility] ([facility]) [address] [facility], [place], [address], 12/28/2024 15:11:28 12/27/19 25 12/28/2024 ALLER GY PROFI LE, FOOD S844-WhR brazil nut <0.10 kU/L class 0 Not Available [facility] ([facility]) [address] [place], [address], 12/28/2024 15:11:28 12/27/19 25 12/28/2024 ALLER GY PROFI LE, FOOD B775-AqI tri A 19(W-5 gliadin) <0.10 kU/L class 0 Not Available [facility] ([facility]) [address] [facility], [place], [address], 12/28/2024 15:11:28 12/27/19 25 12/28/2024 ALLER GY PROFI LE, FOOD B480-JnN wheat <0.10 kU/L class 0 Not Available [facility] ([facility]) [address] [facility], [place], [address], 12/28/2024 15:11:28 12/27/19 25 12/28/2024 ALLER GY PROFI LE, FOOD reflex DOCUMENT REVIEWER Not Available [facility] ([facility]) [address] [facility], [place], [address], 12/28/2024 15:11:28 12/27/19 25 12/28/2024 HASEEB, IFA RFX 11 GRAZYNA MULTI PLEX HASEEB by ifa rfx titer/patter n NEGATI VE Negat mallorie <1:80 Borde rline 1:80 Posit mallorie >1:80 ICAP nomen clatu re: AC-0 For more infor matio n about Hep-2 cell patte rns use ANApa ttern s.org , the offic ial websi te for the Inter natio nal Conse nsus on Antin uclea r Antib carlton (HASEEB) Patte rns (ICAP ). Not Available [facility] ([facility]) [address] [facility], [place], [address], 12/28/2024 15:11:29 12/27/19 25 12/28/2024 ALLER GENS W/TOT AL IGE AREA 5 immunoglobul in E, total 302 IU/mL 6-495 Not Available [facility] ([facility]) [address] [facility], [place], [address], 12/28/2024 15:11:30 12/27/19 25 12/28/2024 ALLER GENS W/TOT AL IGE AREA 5 O573-TcM D pteronyssinu s 0.86 kU/L class II abnormal Not Available [facility] ([facility]) [address] [place], [address], 12/28/2024 15:11:30 12/27/19 25 12/28/2024 ALLER GENS W/TOT AL IGE AREA 5 Q765-DuK D farinae 1.00 kU/L class II abnormal Not Available [facility] ([facility]) [address] [place], [address], 12/28/2024 15:11:30 12/27/19 25 12/28/2024 ALLER GENS W/TOT AL IGE AREA 5 A007-GvB CAT dander 0.13 kU/L class 0/I abnormal Not Available [facility] ([facility]) [address] [place], [address], 12/28/2024 15:11:30 12/27/19 25 12/28/2024 ALLER GENS W/TOT AL IGE AREA 5 B955-JhV dog dander <0.10 kU/L class 0 Not Available [facility] ([facility]) [address] [place], [address], 12/28/2024 15:11:30 12/27/19 25 12/28/2024 ALLER GENS W/TOT AL IGE AREA 5 F924-XfY mouse urine <0.10 kU/L class 0 Not Available [facility] ([facility]) [address] [place], [address], 12/28/2024 15:11:30 12/27/19 25 12/28/2024 ALLER GENS W/TOT AL IGE AREA 5 d052-YkZ bermuda grass <0.10 kU/L class 0 Not Available [facility] ([facility]) [address] [place], [address], 12/28/2024 15:11:30 12/27/19 25 12/28/2024 ALLER GENS W/TOT AL IGE AREA 5 m070-JeA van grass <0.10 kU/L class 0 Not Available [facility] ([facility] [facility]) [address] [facility], [place], [address], 12/28/2024 15:11:30 12/27/19 25 12/28/2024 ALLER GENS W/TOT AL IGE AREA 5 C123-UnS cockroach, irish 9.01 kU/L class IV abnormal Not Available [facility] ([facility] [facility]) [address] [facility] [place], [address], 12/28/2024 15:11:30 12/27/19 25 12/28/2024 ALLER GENS W/TOT AL IGE AREA 5 I454-MjK penicillium chrysogen <0.10 kU/L class 0 Not Available [facility] ([facility]) [address] [place], [address], 12/28/2024 15:11:30 12/27/19 25 12/28/2024 ALLER GENS W/TOT AL IGE AREA 5 U719-AsC cladosporium herbarum <0.10 kU/L class 0 Not Available [facility] ([facility]) [address] [place], [address], 12/28/2024 15:11:30 12/27/19 25 12/28/2024 ALLER GENS W/TOT AL IGE AREA 5 U550-ThT aspergillus fumigatus <0.10 kU/L class 0 Not Available [facility] ([facility]) [address] [place], [address], 12/28/2024 15:11:30 12/27/19 25 12/28/2024 ALLER GENS W/TOT AL IGE AREA 5 W283-ZuI alternaria alternata <0.10 kU/L class 0 Not Available [facility] ([facility]) [address] [place], [address], 12/28/2024 15:11:30 12/27/19 25 12/28/2024 ALLER GENS W/TOT AL IGE AREA 5 U505-PjV maple/box elder <0.10 kU/L class 0 Not Available [facility] ([place] [facility]) [address] [facility], [place], [address], 12/28/2024 15:11:30 12/27/19 25 12/28/2024 ALLER GENS W/TOT AL IGE AREA 5 B005-RvG common silver birch <0.10 kU/L class 0 Not Available [facility] ([place] [facility]) [address] [facility], [place], [address], 12/28/2024 15:11:30 12/27/19 25 12/28/2024 ALLER GENS W/TOT AL IGE AREA 5 V685-TrF cedar, mountain <0.10 kU/L class 0 Not Available [facility] ([place] [facility]) [address] [facility], [place], [address], 12/28/2024 15:11:30 12/27/19 25 12/28/2024 ALLER GENS W/TOT AL IGE AREA 5 S977-TsT oak, white <0.10 kU/L class 0 Not Available [facility] ([place] [facility]) [address] [facility], [place], [address], 12/28/2024 15:11:30 12/27/19 25 12/28/2024 ALLER GENS W/TOT AL IGE AREA 5 K647-ZlO elm, lao <0.10 kU/L class 0 Not Available [facility] ([facility]) [address] [facility], [place], [address], 12/28/2024 15:11:30 12/27/19 25 12/28/2024 ALLER GENS W/TOT AL IGE AREA 5 X232-NpL walnut <0.10 kU/L class 0 Not Available [facility] ([place] [facility]) [address] [place], [address], 12/28/2024 15:11:30 12/27/19 25 12/28/2024 ALLER GENS W/TOT AL IGE AREA 5 D468-TrO maple leaf sycamore <0.10 kU/L class 0 Not Available [facility] ([place] [facility]) [address], [place], [address], 12/28/2024 15:11:30 12/27/19 25 12/28/2024 ALLER GENS W/TOT AL IGE AREA 5 L281-EjX cottonwood <0.10 kU/L class 0 Not Available [facility] ([facility]) [address], [place], [address], 12/28/2024 15:11:30 12/27/19 25 12/28/2024 ALLER GENS W/TOT AL IGE AREA 5 J788-MaN sonia, white <0.10 kU/L class 0 Not Available [facility] ([place] [facility]) [address], [place], [address], 12/28/2024 15:11:30 12/27/19 25 12/28/2024 ALLER GENS W/TOT AL IGE AREA 5 Q358-HpR pecan, hickory <0.10 kU/L class 0 Not Available [facility] ([place] [facility]) [address] [facility], [place], [address], 12/28/2024 15:11:30 12/27/19 25 12/28/2024 ALLER GENS W/TOT AL IGE AREA 5 J054-VyQ white mulberry <0.10 kU/L class 0 Not Available [facility] ([facility]) [address], [place], [address], 12/28/2024 15:11:30 12/27/19 25 12/28/2024 ALLER GENS W/TOT AL IGE AREA 5 B738-UjE ragweed, short <0.10 kU/L class 0 Not Available [facility] ([facility]) [address] [facility], [place], [address], 12/28/2024 15:11:30 12/27/19 25 12/28/2024 ALLER GENS W/TOT AL IGE AREA 5 K018-YcQ thistle, cook islander <0.10 kU/L class 0 Not Available [facility] ([facility]) [address] [facility], [place], [address], 12/28/2024 15:11:30 12/27/19 25 12/28/2024 ALLER GENS W/TOT AL IGE AREA 5 N000-ViX pigweed, common <0.10 kU/L class 0 Not Available [facility] ([facility]) [address] [facility], [place], [address], 12/28/2024 15:11:30 12/27/19 25 12/28/2024 ALLER GENS W/TOT AL IGE AREA 5 T289-HsZ sheep sorrel <0.10 kU/L class 0 Not Available [facility] ([facility]) [address] [facility], [place], [address], 12/28/2024 15:11:30 12/27/19 25 12/27/2024 SEDIM ENTAT ION RATE- WESTE RGREN sedimentatio n rate-westerg daniela 17 mm/HR 0-32 normal Not Available [facility] ([facility]) [address] [facility], [place], [address], 12/28/2024 15:11:31 12/27/19 25 12/27/2024 C-STACIE CTIVE PROTE IN, QUANT C-reactive protein, quant 5 mg/L 0-10 normal Not Available [facility] ([facility]) [address] [facility] [place], [address], 12/28/2024 15:11:31 Result Notes None recorded. Problems Name Problem SNOMED Code Status Onset Date Resolution Date Notes Provider Name and Address Organization Details Recorded Time Allergy to food 823279033 Active DANIEL Scott [facility] [place] 16:14:28 Problem Notes None recorded. Procedures Surgical History Date Name Laterality Status Provider Name and Address Organization Details Recorded Time endoscopic balloon dilation of ostium of paranasal sinus completed Pretty Guzman [facility] [place] 12/26/2024 11:18:52 Imaging Results None recorded. Procedure Notes None recorded. Medical Equipment None Reported. Allergies Allergen ID Allergen Name Allergen Category Reaction Reaction Severity Criticality Documentation Date Start Date Code Code System Note Provider Name and Address Organization Details Recorded Time 130609 shellfish derived food,medi cation Not available Not available Not available 12/28/2024 22306 [facility] Lee Ann coy [facility] [place] 16:11:37 107012 house dust mite environme nt Not available Not available Not available 12/28/2024 52201 [facility] Lee Ann coy [facility] [place] 16:11:48 976395 cat dander environme nt Not available Not available Not available 12/28/2024 84731 [facility] Lee Ann coy [facility] [place] 16:12:13 215183 cockroach environme nt Not available Not available Not available 12/28/2024 50018 9 [facility] Lee Ann coy [facility] [place] 16:12:21 753249 scallop allergeni c extract food Not available Not available Not available 12/28/2024 23368 6 [facility]Norm Lee Ann coy [facility] [place] 16:12:30 Medications Name Sig Start Date Stop [...] and Address Organization Details Last Updated DateTime 175.26 cm 30.3 kg/m2 09637.1 4 g 98.8 [degF] 98 % 98 % 16 /min 126 /min 118 mm[Hg] 62 mm[Hg] Pretty SANCHEZ [facility] [place] 11:21:06 Social History Question Answer Notes LastModified by [facility] [facility] Details LastModified Time Tobacco Smoking Status [facility]oker [facility] [place] 12/26/2024 11:14:34 Do You Have An Advance Directive? No [email or web address] Information not available 12/26/2024 Are You Blind Or Do You Have Difficulty Seeing? No [email or web address] Information not available 12/26/2024 What Is Your Level Of Caffeine Consumption? Moderate [email or web address] Information not available 12/26/2024 What Type Of Diet Are You Following? REGULAR [email or web address] Information not available 12/26/2024 Are You Passively Exposed To Smoke? No [email or web address] Information not available 12/26/2024 Sex: Female Functional Status Question Answer Note LastModified by [facility] Details LastModified Time Do you use any illicit or recreational drugs? No Information not available 12/26/2024 Do you or have you ever used any other forms of tobacco or nicotine? No [email or web address] Information not available 12/26/2024 What is your level of alcohol consumption? Occasional [email or web address] Information not available 12/26/2024 Do you or have you ever used smokeless tobacco? Never used smokeless tobacco [email or web address] Information not available 12/26/2024 What is your exercise level? Occasional [email or web address] Information not available 12/26/2024 Mental Status Question Answer Note LastModified by Organization D etails LastModified Time Do you feel stressed (tense, restless, nervous, or anxious, or unable to sleep at night)? [id number] [email or web address] Information not available 12/26/2024 Family History Relationship Description Onset Age of this Age Resolved Age Notes LastModified by Organization Details LastModified Time Mother Multiple sclerosis [email or web address] Not available 08/2024 11:15:54 Sister [place] thyroiditis [email or web address] Not available 0 12/26/2024 11:16:18 Paternal Grandmother Diabetes mellitus [email or web address] Not available 08/2024 11:16:53 Maternal Grandfather Malignant tumor of stomach [email or web address] Not available 08/2024 11:17:32 Paternal Grandfather Neoplasm of brain [email or web address] Not available 08/2024 11:17:44 Medical History Condition Response Other Y Psychiatric/Mental Health Condition Y Gynecological History Statement/Question Response Abnormal Pap N Date of LMP 12/22/2024 Sexually Active? Y Obstetrics History GPAL:G 0 P 0 0 0 0 Past Encounters Encounter ID Performer Location Encounter Start Date Encounter Closed Date Diagnosis/Indication Diagnosis SNOMED-CT Code Diagnosis ICD10 Code Diagnosis Note [id number] MD [facility] [address] [place] [address] 12/26/2024 10:55:58 12/26/2024 12:26:59 History of angioedema 8910733030 108 Z87.898 As stated in HPI, patient presents today with concerns regarding multiple incidences of angioedema over the last 9 years with no real workup as to the cause. Laboratory assessment has been ordered, will await results to determine further treatment plan. Standard ed adult depression screening tool completed [id number] 53310 Z13.31 Negative PHQ-9. Health Concerns Section Related Observation LastModified by Organization Detai ls LastModified Time None Recorded Concern Status LastModified by Organization Details LastModified Time None Recorded Advance Directives Directive N: Payers Insurance Date Sequence Insurance Name Policy Number Policy Worthy Covered Member ID Worthy Member ID Guarantor Name 12/26/2024 1 *SELF PAY* Em ashely Le Notes Date Note Type Note Provider Name and Address Organization Details Recorded Time 12/26/2024 text/html Patient is a 24-year-old female who presents today to [facility]. Patient also presents today with concerns regarding [...] any further workup. SOLITARIO PASTRANA, DORITA [address] [facility],[address], [place], [address], [facility] - [facility] 12/26/2024 14:00:49 OBGyn Episode No OBEpisode recorded.
--- OUTSIDE RECORDS SUMMARY | 2024-12-30 14:54 | XMS_ITS | Encounter Summary ---
Author Organization Narciso Simms [employer] [facility] 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 threatened to shut off services in your [...] things needed for daily living? No 07/31/2024 [place] Depression Scale Answer Date Recorded [place] Depression Scale Total 5 08/02/2024 The thought [...] any time in the past 12 m onths, were you homeless or living in a correction (including now)? No 07/31/2024 Food Insecurity Answer [...] on file documented as of this encounter Plan of Treatment Not on file documented as of this encounter Visit Diagnoses Not on filedocumented in this encounter
--- OUTSIDE RECORDS SUMMARY | 2024-12-30 14:54 | XMS_ITS | Data Portability ---
Author Organization [place] [facility], [place] [place] [facility] Address [address] [address] Assessment No assessment recorded. Plan of Treatment Reminders Order Date Submit Date Provider Last Modified By Organization Details Last Modified Time Details Appointments None recorded. Lab glucose tolerance test, post-75G, 2-hour 2024 025 [email or web address] Not available 5 10:45:33 Referral None recorded. Procedures None recorded. Surgeries None recorded. Imaging non-stress test 2024 025 [email or web address] [facility] [place] [facility]*, [address] [place] [address], [address], [address], 5 12:54:22 non-stress test 2023 024 [email or web address] [facility] [place] [facility]*, [address] [place] [address], [address], [address], 4 09:05:53 Medication Orders None recorded. Patient TargetsNo targets recorded. Patient InstructionsNo instructions recorded. Reason for Referral None Reported. Results Created Date Observation Date Name Description Value Unit Range Abnormal Flag Note LastModifiedBy Organization Detail LastModifiedTime 07/14/2007/14/2024 [facility] B STREP CULTU RE group B strep culture unspecifi ed MICRO BIOLO GY REPOR T [facility], [address], [place], [address] PATIE NT: GHADA SOLO 75 ACCOU NT#: [id number] LOCAT ION: OBS - - : 11/26 AGE: 23 SEX: F ADM: 07/14 Att. Physi dalia: CHERRY MAGANA Order Id: [id number] Req. Physi dalia: CHERRY MAGANA Sourc e: vagin al-an orect al Site: [facility] cted: 07/14 10:19 Curre nt Antib iotic s: not state d Antib iotic s comme nt: STATU S OF ORDER ED AND REPOR CURTIS TESTS [facility] B STREP CULTU RE FINAL 07/16 [facility] B STREP CULTU RE FINAL 07/16 09:56 07/16 CULTU RE: No Group B Strep tococ cus isola curtis. ... Group B Strep tococ cus(G BS)by PCR: NEGAT CHANO ... Patie nts who have used syste lily or topic al (vagi nal) antib iotic treat ment in the week prior as well as patie nts diagn osed with place nta previ a shoul d not be teste d with PCR. Mutat ions in prime r or probe rachid ng regio ns may affec t detec tion of new or unkno wn GBS varia nts resul ting in a false negat chano resul t. Not Available [facility] [address] [place] [address], [address], 07/16/2024 13:22:53 07/14/20 24 07/14/2024 DARIENA [facility]CRECIA [facility] B STREP CULTU RE performing lab: see note unspecifi ed [facility] [address] [facility] [address] Nicholas Salcedo Not Available [facility] [address] [place] [address], [address], 07/16/2024 13:22:53 06/14/20 non-s tress test No observ ation record ed. LISA [facility] [place] [facility]* [address] [facility] [address] [facility], [place], [address], 06/16/2024 10:06:27 06/28/20 24 non-s tress test No observ ation record ed. LISA [facility] [place] [facility] [address] [facility] [address], [place], [address], 06/28/2024 22:33:37 06/29/20 24 non-s tress test No observ ation record ed. [email or web address] [facility] [place] [facility]* [address] [facility] [address], [place], [address], 06/29/2024 10:13:45 07/07/20 24 non-s tress test No observ ation record ed. [email or web address] [facility] [place] [facility]* [address] [facility] [address], [place], [address], 07/07/2024 11:41:38 07/14/20 24 non-s tress test No observ ation record ed. LISA [facility] [place] [facility]* [address] [facility] [address], [place], [address], 07/14/2024 12:34:30 07/14/20 24 07/14/2024 ultra sound image s RAD [email or web address] [facility] [employer] [id number] 07/14/2024 12:33:43 07/14/20 24 US, obste tric, 3rd trime ster No observ ation record ed. LISA [facility] [place] [facility]* [address] [facility] [address], [place], [address], 07/14/2024 12:34:35 07/18/20 24 non-s tress test No observ ation record ed. LISA [facility] [place] [facility]* [address] [facility] [address], [place], [address], 07/19/2024 09:05:51 07/28/19 25 non-s tress test No observ ation record ed. [email or web address] [facility] [place] [facility]* [address] [facility] [address], [place], [address], 07/28/2024 10:34:54 10/07/19 25 01/06/2024 US, obste tric No observ ation record ed. [email or web address] Not Available 10/06/2024 20:16:40 10/07/19 25 03/21/2024 US, obste tric No observ ation record ed. [email or web address] Not Available 10/06/2024 20:17:01 11/17/19 25 03/21/2024 US, obste tric No observ ation record ed. [email or web address] Not Available 11/16/2024 21:06:02 Result Notes None recorded. Problems Name Problem SNOMED Code Status Onset Date Resolution Date Notes Provider Name and Address Organization Details Recorded Time Anxiety disorder Active Tiff coy, [facility] 5 11:31:21 Gestatio nal diabetes mellitus 59401453 Completed NSTs at 32wks, serial growth scans Tfif coy, [facility] 5 11:31:21 Anxiety disorder Completed Tiff coy, [facility] 5 11:31:21 High risk pregnanc y 20667087 Completed Tiff coy, [facility] 5 11:31:21 RhD negative 484629775 Completed Rhogam 05/17 Tiff coy, [facility] 5 11:31:21 Glucose level outside referenc e range 470699994 Completed DM educatio n with MW Tiff coy, [facility] 5 11:31:21 Maternal obesity complica ting pregnanc y, childbir th and the puerperi um, antepart um 60654406657 7 Completed Early 1hr GTT- US at 36wks Tiff coy, [facility] 5 11:31:21 Problem Notes None recorded. Procedures Surgical History Date Name Laterality Status Provider Name and Address Organization Details Recorded Time 5 Chaperoned Pelvic Examination completed Tiff Scout [facility] 09/07/2024 11:23:59 4 Date of Last Pap Smear completed Misa Jorgeter [facility] 06/14/2024 13:56:33 endoscopic balloon dilation of ostium of paranasal sinus completed Norma Rodrigues [facility] 05/04/2024 11:14:16 Imaging Results None recorded. Procedure Notes None recorded. Medical Equipment None Reported. Allergies No known drug allergies Medications Name Sig Start Date Stop Date Status Note LastModified by Organization Details LastModified Time cyclobenz aprine 10 mg tablet take 1 tablet by mouth three times a day if needed for muscle spasm 06/16 completed Not Available Not Available Not Available BD Alcohol Swabs APPLY TO AFFECTED AREA FOUR TIMES DAILY OR NEEDED 09/07 completed Not Available Not Available Not Available ondansetr on HCl 8 mg tablet take 1 tablet (8 mg) by oral route every 8 hours as needed for nausea 07/06 completed Medicati on Comments : ondanset bhanu HCl 8 mg tablet P rescribe Status: Prescrib ed on: 01/06/20 10:57AM User: [email or web address] Wu on: 02/15/20 Pharm Qi ied: 01/06/20 10:58AM Prescrip tion Date: 01/06/20 10:57:59 Clinica l Medicati on Id: [id number] U dolly Medicati on Id: [id number] P rescribe d: Practice Prescrib ed Medicati on Not Available Not Available Not Available ondansetr on HCl 4 mg tablet TAKE 2 TABLETS BY MOUTH EVERY 8 HOURS NEEDED FOR NAUSEA AND VOMITING 06/16 completed Not Available Not Available Not Available Reglan 10 mg tablet Take 1 tablet 4 times a day by oral route. 07/18 completed Not Available Not Available Not Available butalbita l-acetami nophen-ca ffeine 50 mg-325 mg-40 mg tablet Take 1 tablet every 4 hours by oral route for 10 days, for AGUILAR as needed. 07/06 completed Not Available Not Available Not Available ondansetr on 8 mg disintegr ating tablet Place 1 tablet twice a day by translin gual route. 09/07 completed Not Available Not Available Not Available lancets 09/07 completed Not Available Not Available Not Available naproxen 500 mg tablet take 1 tablet by mouth twice a day with food 06/22 completed Not Available Not Available Not Available azithromy jennifer 500 mg tablet TAKE 1 TABLET BY MOUTH ONCE DAILY FOR 3 DAYS 06/16 completed Not Available Not Available Not Available Blood Glucose Monitorin g kit use as directed 03/22 completed Medicati on Comments : Blood Glucose Monitori ng kit Pres cribe Status: Prescrib ed on: 03/22/20 8:54AM U ser: [email or web address] cyVerifi ed: 03/22/20 8:55AM P rescript ion Date: 03/22/20 08:54:46 Clinica l Medicati on Id: [id number] U nique Medicati on Id: 408060 P rescribe d: Practice Prescrib ed Medicati on Not Available Not Available Not Available 1 a day 06/22 completed Not Available Not Available Not Available Fioricet 09/07 completed Not Available Not Available Not Available Blood Glucose Monitorin g 07/06 completed Not Available Not Available Not Available OneTouch Verio test strips USE STRIP TO CHECK GLUCOSE 4 TIMES DAILY OR NEEDED 09/07 completed Not Available Not Available Not Available Plus 29 mg iron-1 mg tablet take 1 tablet by oral route once daily with a meal for 30 days 01/05 completed Medicati on Comments : Plus 29 mg iron-1 mg tablet R ecorded Status: Recorded on: 01/06/20 24 10:21AM User: [email or web address] meng Completi on: 01/01/20 25 Indic ation: pregnanc y - (18.V222 00) Clin ical Medicati on Id: [id number] U nique Medicati on Id: 216502 P rescribe d: Practice Prescrib ed Medicati on Not Available Not Available Not Available OneTouch Verio Flex Meter USE TO CHECK GLUCOSE 4 TIMES DAILY NEEDED 09/07 completed Not Available Not Available Not Available OneTouch Delica Plus Lancet 33 gauge USE TO CHECK BLOOD SUGAR FOUR TIMES DAILY OR NEEDED 09/07 completed Not Available Not Available Not Available WesTab Plus 27 mg iron-1 mg tablet TAKE 1 TABLET BY MOUTH EVERY DAY WITH MEAL active Not Available Not Available No t Available Vitals Date Recorded Body weight Systolic blood pressure Diastolic blood pressure Provider Name and Address Organization Details Last Updated DateTime 07/28/2024 778051.206 95 g 120 mm[Hg] 72 mm[Hg] Not Available [facility] Record 07/28/2024 10:34:40 Date Recorded Body height Body mass index (BMI) Body weight Systolic blood pressure Diastolic blood pressure Provider Name and Address Organization Details Last Updated DateTime 09/07/2024 173.9897 46 cm 31.2 kg/m2 69601.64 9908 g 116 mm[Hg] 86 mm[Hg] Tiff Butterfield [facility] 11:26:48 Date Recorded Body height Provider Name an d Address Organization Details Last Updated DateTime 07/14/2024 173.303969 cm Tiff [place] [facility] 07/14/2024 10:18:25 Date Recorded Body weight Systolic blood pressure Diastolic blood pressure Provider Name and Address Organization Details Last Updated DateTime 07/14/2024 331834.614 58 g 101 mm[Hg] 76 mm[Hg] Not Available [facility] Record 07/14/2024 10:30:38 Date Recorded Body height Body mass index (BMI) Systolic blood pressure Diastolic blood pressure Provider Name and Address Organization Details Last Updated DateTime 07/18/2024 173.34917 6 cm 35.2 kg/m2 112 mm[Hg] 79 mm[Hg] Lety Cloudon [facility] 07/18/2024 14:13:32 Date Recorded Body weight Provider Name an d Address Organization Details Last Updated DateTime 07/18/2024 757831.49744 g Not Available [facility] Record 07/18/2024 14:19:45 Social History Question Answer Notes LastModified by Organizat ion Details LastModified Time Tobacco Smoking Status Never Smoker Norma coy [facility] 05/04/2024 11:11:31 What Is The Highest Grade Or Level Of School You Have Completed Or The Highest Degree You Have Received? RR72961-4 [email or web address] Information not available 05/04/2024 What Was The Date Of Your Most Recent Tobacco Screening? 05/04/2024 [email or web address] Information not available 05/04/2024 What Is Your Relationship Status? [email or web address] Information not available 05/04/2024 Do You Use Your Seat Belt Or Car Seat Routinely? Yes [email or web address] Information not available 05/04/2024 Are You Sexually Active? Yes Information not available 07/14/2024 Has Tobacco Cessation Counseling Been Provided? No [email or web address] Information not available 07/14/2024 Are You Currently In School? No [email or web address] Information not available 07/14/2024 Sex: Unknown Functional Status Question Answer Note LastModified by Organizat ion Details LastModified Time Do you use any illicit or recreational drugs? No [email or web address] Information not available 07/14/2024 Do you or have you ever used any other forms of tobacco or nicotine? No [email or web address] Information not available 07/14/2024 Are you currently employed? Yes Information not available 07/14/2024 Mental Status None recorded. Family History Relationship Description Onset Age of this Age Resolved Age Notes LastModified by Organization Details LastModified Time Maternal Grandmother Diabetes mellitus [email or web address] Not available 03/2024 11:07:20 Father Hypercholest erolemia [email or web address] Not available 03/2024 11:07:56 Sister Disorder of thyroid gland [email or web address] Not available 03/2024 11:08:25 Medical History Condition Response Other N Colon Cancer N Vulvar Cancer N Depression N Gestational Diabetes N Uterine Cancer N Headaches/Migraines N Anxiety Disorder Y Infertility N Cervical Cancer N Varicosities N Hospitalization(s) N Urologic Disorder N Endometriosis N Fibroids/Leiomyoma N Osteoporosis/Osteopenia N Pre-eclampsia N Celiac Disease N Hypothyroidism (under active) N No significant past medical history N Past Medical History as per Problem List Y Thrombophilias N Hematologic Disease N Gynecological History Statement/Question Response Abnormal Pap N Date of Last Pap Smear 01/06/2024 Sexual Problems? N Current Control Method None Date of LMP 10/27/2023 Sexually Active? Y Obstetrics History GPAL:G 1 P 1 0 0 1 Type Value Full Term 1 Living 1 Total 1 Past Encounters Encounter ID Performer Location Encounter Start Date Encounter Closed Date Diagnosis/Indication Diagnosis SNOMED-CT Code Diagnosis ICD10 Code Diagnosis Note [id number] Cherry Caro MD [facility] [place] [facility]* [address] [place] [address],[address] [address] 05/18/2024 13:02:51 05/18/2024 14:08:44 Maternal obesity complicating , childbirth and the puerperium, antepartum 0482591571 07 O99.213 Early 1hr GTT- US at 36wks Gestationa l diabetes mellitus 71689782 O24.410 NSTs at 32wks, serial growth scans High risk 4720 0007 O09.93 Gestation period, 28 weeks 66738826 Z3A.28 [id number] Eileen Bradley CNP [facility] [place] [facility] [address] [place] [address], [address] [place] [address] 05/18/2024 13:39:06 05/18/2024 14:21:58 Gestational diabetes mellitus 90014430 O24.150 [id number] Eileen Bradley CNP [facility] [place] [facility] [address] [place] [address], [address] [place] [address] 06/01/2024 09:17:02 06/01/2024 10:37:40 Gestational diabetes mellitus 58488937 O24.410 High risk 4720 0007 O09.93 Gestation period, 30 weeks 21310501 Z3A.30 [id number] MD HOLLIS Mckeon[facility] [place] [facility]* [address] [place] [address],[address] [address] 06/16/2024 09:08:44 06/16/2024 10:19:29 High risk 10432664 O09.93 Gestationa l diabetes mellitus 32157805 O24.410 NSTs at 32wks, serial growth scans Maternal o besity complicating , childbirth and the puerperium, antepartum 5138991056 07 O99.213 Early 1hr GTT- US at 36wks Gestation period, 32 weeks 0325282 Z3A.32 [id number] Eileen Bradley CNP [facility] [place] [facility] [address] [place] [address], [address] [place] [address] 06/22/2024 10:08:38 06/22/2024 12:25:08 High risk 49995781 O09.93 Gestation period, 33 weeks 96838498 Z3A.33 Gestationa l diabetes mellitus 98694110 O24.727 [id number] Cherry Caro MD [facility] [place] [facility]* [address] [place] [address] [address] [place] [address] 06/29/2024 09:55:44 06/29/2024 11:28:39 Gestational diabetes mellitus complicating 9294265154 9106 O24.419 High risk 4720 0007 O09.93 Anxiety disorder 7056255 06 O99.343 Gestationa l diabetes mellitus 89487253 O24.410 NSTs at 32wks, serial growth scans Maternal o besity complicating , childbirth and the puerperium, antepartum 8190661596 07 O99.213 Early 1hr GTT- US at 36wks Gestation period, 34 weeks 74212795 Z3A.34 [id number] Cherry Caro MD [facility] [place] [facility]* [address] [place] [address] [address] [place] [address] 07/07/2024 10:06:01 07/07/2024 11:41:23 screening 124150488 Z36.85 High risk 4720 0007 O09.93 Anxiety disorder 4510083 06 O99.343 Gestationa l diabetes mellitus 45394836 O24.410 NSTs at 32wks, serial growth scans Gestation period, 35 weeks 70000997 Z3A.35 [id number] Eileen Bradley CNP [facility] [place] [facility]* [address] [place] [address] [address] [place] [address] 07/07/2024 10:06:01 07/07/2024 11:41:23 Gestational diabetes mellitus 36697525 O24.410 Gestation period, 35 weeks 90325652 Z3A.35 [id number] Eileen Bradley CNP [facility] [place] [facility]* [address] [place] [address] [address] [place] [address] 07/14/2024 10:08:12 07/14/2024 12:41:01 Gestation period, 36 weeks 92987651 Z3A.36 Gestationa l diabetes mellitus 88414393 O24.613 [id number] Cherry Caro MD [facility] [place] [facility]* [address] [place] [address] 07/14/2024 10:08:12 07/14/2024 12:41:01 screening 679859481 Z36.85 Gestationa l diabetes mellitus 10783086 O24.410 NSTs at 32wks, serial growth scans Gestation period, 36 weeks 65390638 Z3A.36 High risk 4720 0007 O09.93 Anxiety disorder 9797793 06 O99.343 Maternal o besity complicating , childbirth and the puerperium, antepartum 5492249166 07 O99.213 Early 1hr GTT- US at 36wks [id number] MD JONG Mckeon_[facility] [place] [facility]* [address] [place] [address] 07/18/2024 13:25:35 07/18/2024 14:57:56 High risk 18783603 O09.93 Anxiety disorder 5807748 06 O99.343 Gestationa l diabetes mellitus 08883032 O24.410 Maternal o besity complicating , childbirth and the puerperium, antepartum 7765608148 07 O99.213 Early 1hr GTT- US at 36wks Gestation period, 37 weeks 27842616 Z3A.37 [id number] Eileen Bradley CNP [facility] [place] [facility]* [address] [place] [address] 07/28/2024 09:59:19 07/28/2024 11:47:00 Gestational diabetes mellitus 29376608 O24.410 Gestation period, 38 weeks 71632884 Z3A.38 [id number] Cherry Caro MD [facility] [place] [facility]* [address] [place] [address] 07/28/2024 09:59:19 07/28/2024 11:47:00 Gestational diabetes mellitus 02010029 O24.410 High risk 4720 0007 O09.93 Anxiety disorder 6899023 06 O99.343 Maternal o besity complicating , childbirth and the puerperium, antepartum 3000070545 07 O99.213 Early 1hr GTT- US at 36wks Gestation period, 38 weeks 40379063 Z3A.38 [id number] Cherry Caro MD [facility] [place] [facility]* [address] [facility], [address] [place] [address] 09/07/2024 11:13:54 09/07/2024 11:48:55 state 87306588 Z39.2 Declined contracept ionNo s/sx of PP depression gestational diabetes mellitus 2005442446 9105 O24.439 Health Concerns Section Related Observation LastModified by Organization Detai ls LastModified Time None Recorded Concern Status LastModified by Organization Details LastModified Time None Recorded Advance Directives Directive None Recorded Payers Encounter Date Sequence Insurance Name Policy Number Policy Worthy Covered Member ID Wrothy Member ID Guarantor Name 07/14/2024 1 UMR [id number] Aureliano L Narda [id number] Ghada S Le 07/18/2024 1 UMR [id number] Aureliano L Narda [id number] Ghada S Le 07/28/2024 1 UMR [id number] Aureliano L Narda [id number] Ghada S Le 07/28/2024 1 UMR [id number] Aureliano L Narda [id number] Ghada S Le 09/07/2024 1 UMR [id number] Aureliano L Narda [id number] Ghada S Le Notes Date Note Type Note Provider Name and Address Organization Details Recorded Time 4 text/html This is a at 36.4weeks gestation with an EDC of 08/07/24. She presents for her follow up diabetic visit. She has gestational diabetes mellitus. Home regimen includes: diet. She compliant. She monitors blood glucose at home 3-4 times per day. Discussed goals for FBS 70-95. Disc goal 2hr post prandial goals is less than 120. Blood glucose monitoring compliance is good. Assessment Current glucose trends: See OB diabetic log. Any episodes of hypoglycemia no Current diet: on average, 3 meals per day plus snacks Current exercise: none Focus Pt presents without her meter. She did bring her food log. Download shows overall sugars are adequate. FBS are in goal range. She reports she is doing daily walking and limiting carbohydrates. Reviewed diet with suggestions offered. Stressed the significance of keeping logs in assisting this clinic to safely dose . Last a1c 5.0% on 03/2024 CURRENT DOSE diet current regimen is . Plan: Total time involved in direct patient education: 15 minutes Discussed general issues about diabetes pathophysiology and management. doing well with checking glucose. fasting and PP WNL.continue monitoring.f/u 1wk Eileen Bradley, FAN [address] [place], [address], [facility] 07/14/2024 12:41:41 5 text/html This is a at 38.4weeks gestation with an EDC of 08/07/24. She presents for her follow up diabetic visit. She has gestational diabetes mellitus. Home regimen includes: diet. She compliant. She monitors blood glucose at home 3-4 times per day. Discussed goals for FBS 70-95. Disc goal 2hr post prandial goals is less than 120. Blood glucose monitoring compliance is good. Assessment Current glucose trends: See OB diabetic log. Any episodes of hypoglycemia no Current diet: on average, 3 meals per day plus snacks Current exercise: none Focus Pt presents without her meter. She did not bring her food log. Download shows overall sugars are adequate. FBS are in goal range. She reports she is doing daily walking and limiting carbohydrates. Reviewed diet with suggestions offered. Stressed the significance of keeping logs in assisting this clinic to safely dose . Last a1c 5.0% on 03/2024 CURRENT DOSE diet current regimen is . Plan: Total time involved in direct patient education: 10 minutes Discussed general issues about diabetes pathophysiology and management. pt forgot glucose log today.Per pt her fasting and PP readings are within goal range. Per pt she has 1 elevated PP reading of 133 less than 1hr after eating.Pt induction scheduled 07/31/24. Eileen Bradley CNP [address] [place], [address], [facility] 07/28/2024 11:07:41 5 text/html This is a who presents for a post exam.She does not need additional testing, such as a pap, colp or cultures.She was not required to have a post u-dip performed.Her last pap smear was on 01/06/2024. Her last pap was normal. Pap Recommendation:She will not have her post pap today. Delivery InformationDelivery date 08/01/2024, Gestational age at delivery 39 weeks 1daysVaginal delivery - type of deliveryYes - Any anesthesia/epidural during deliveryNo - Pain medications used since deliveryGrayson -Baby's NameBoy - Sex of newbornShe has had no problems since delivery.She did have gestational diabetes with this . Maternal information8- [place] ScoreNo - any problems with post depressionBreast Patients choice for feeding baby pumpingNo - any complaints of breast problems?Yes - Still bleeding since delivery spotting on and offNo - having difficulty with bowel movementsNo - having any problems voiding?No - Using any medication since delivery?No - Desires controlNo - Has had a period since deliveryYes - Sexual intercourse since delivery with protectionNo - Any concerns about resuming sexual activity Cherry Caro MD [address] [place], [address], [facility] 09/07/2024 11:47:05 OBGyn Episode Ob Episode Information Episode Created Date Number of Fetuses Patient Bloodtype Patient rh Status Prepregnancy Weight lbs Domestic Partner Domestic Partner Phone Father Name Body Make Up Artist Status 05/04/20 24 1 A Negative 213 Gerber CLOSED Fetus Data First Name Last Name Admitted to NICU Weight (g) Sex Living Outcome Pediatric Complications Fetus ID Race Codes Race Delivery Type 3458.63 9 M true Full Term [id number] Vaginal Problems Problem Notes Problem Name Start Date End Date Resolution Snomed Code Not e Gestational diabetes mellitus [id number] NSTs at 32wks, serial growth scans Anxiety disorder [id number] High risk [id number] RhD negative [id number] Rhogam 05/17 Glucose level outside reference range [id number] DM education with MW Maternal obesity complicating , childbirth and the puerperium, antepartum [id number] Early 1hr GTT- US at 36wks Ash Calculation Initial Ash Date Initial Exam Date Initial Exam Provider Initial Ultrasound Date Last Menstrual Period Date Ultra Sound Weeks Gestation 05/04/2024 01/06/2024 10/27/2023 9 Eighteen To Twenty Week Ash Update Ultra Sound Date Fundal Height At Umbil Quickening Date Ultra Sound Latest Weeks Gestation Final Ash Confirmed By Final Ash Confirmed Date Final Ash Date Ultra Sound Latest Days Gestation 0 API-217 05/04/2024 08/07/19 25 0 Pre- Flowsheet Flowsheet Date 05/18/2024 Rodrigez Score Blood Edema Fundus Height Fundus Units Glucose Ketones Leukocytes Nitrite Labor Signs Protein Cervic Dilation Cervic Effacement Cervic Station Type Weight in lbs Pre/Post Dialysis Refused 219.812849470611 BP Diastolic BP Location Tested BP Systolic BP Type 62 110 Fetus Heart Rate Present Fetus Movement A Yes Comments States she got her HGB and R TN drawn today and Rhogam drawn yesterday. Has questions on short term disibility. Flowsheet Date 05/18/2024 Rodrigez Score Blood Edema Fundus Height Fundus Units Glucose Ketones Leukocytes Nitrite Labor Signs Protein Cervic Dilation Cervic Effacement Cervic Station Type Weight in lbs Pre/Post Dialysis Refused BP Diastolic BP Location Tested BP Systolic BP Type Fetus Heart Rate Present Fetus Movement Comments Flowsheet Date 06/01/2024 Rodrigez Score Blood Edema Fundus Height Fundus Units Glucose Ketones Leukocytes Nitrite Labor Signs Protein Cervic Dilation Cervic Effacement Cervic Station none none Negative neg Type Weight in lbs Pre/Post Dialysis Refused 224.312152954818 BP Diastolic BP Location Tested BP Systolic BP Type 77 109 Fetus Heart Rate Present Fetus Movement Comments denies any problems. FBS not taken this morning. Tdap/FMS/RSV information given. NST today. CLCNST-R. NST at 32wks and then weekly. GDM diet controlled. to see [facility] for apt and glucose log review in 2wks. send in glucose log next wk.mw Flowsheet Date 06/16/2024 Rodrigez Score Blood Edema Fundus Height Fundus Units Glucose Ketones Leukocytes Nitrite Labor Signs Protein Cervic Dilation Cervic Effacement Cervic Station none none Negative neg Type Weight in lbs Pre/Post Dialysis Refused 227.677898667443 BP Diastolic BP Location Tested BP Systolic BP Type 81 112 Fetus Heart Rate Present A Present Fetus Movement A Yes Comments NST, FBS-94, pt would like t o follow up with you about her recent visit to L&D. pt c/o headaches that are not going away with Tylenol and dizziness along with blurred vision. -RLDiscussed hydration will add magnesium and fioricet for AGUILAR. She has concerns about the L&D staff. Becky Najera's number given to address. BS log all within range. TH Flowsheet Date 06/22/2024 Rodrigez Score Blood Edema Fundus Height Fundus Units Glucose Ketones Leukocytes Nitrite Labor Signs Protein Cervic Dilation Cervic Effacement Cervic Station none none Negative neg Type Weight in lbs Pre/Post Dialysis Refused 225.378852792204 BP Diastolic BP Location Tested BP Systolic BP Type 64 106 Fetus Heart Rate Present A Present Fetus Movement A Yes Comments FBS 86 denies any concerns M Kno concerns. fasting and PP WNL. NST- Rweekly NST. Flowsheet Date 06/29/2024 Rodrigez Score Blood Edema Fundus Height Fundus Units Glucose Ketones Leukocytes Nitrite Labor Signs Protein Cervic Dilation Cervic Effacement Cervic Station none none Negative neg Type Weight in lbs Pre/Post Dialysis Refused 230.870373864648 BP Diastolic BP Location Tested BP Systolic BP Type 83 118 Fetus Heart Rate Present A Present Fetus Movement A Yes Comments FBS 95, NST. denies any conc erns MKRNST. Forgot sugar log today but states levels are within range. Flowsheet Date 07/07/2024 Rodrigez Score Blood Edema Fundus Height Fundus Units Glucose Ketones Leukocytes Nitrite Labor Signs Protein Cervic Dilation Cervic Effacement Cervic Station 1+ none Negative neg Type Weight in lbs Pre/Post Dialysis Refused 229.541980584143 BP Diastolic BP Location Tested BP Systolic BP Type 74 127 Fetus Heart Rate Present Fetus Movement Comments NST today, c/o ron mccord this week.MAfasting today 83, glucose log reviewed from the last two weeks. WNL. continue diet control. Flowsheet Date 07/07/2024 Rodrigez Score Blood Edema Fundus Height Fundus Units Glucose Ketones Leukocytes Nitrite Labor Signs Protein Cervic Dilation Cervic Effacement Cervic Station Type Weight in lbs Pre/Post Dialysis Refused BP Diastolic BP Location Tested BP Systolic BP Type Fetus Heart Rate Present A Present Fetus Movement A Yes Comments DOing well. US and NST with GBS next week. Labor precautions discussed. Flowsheet Date 07/14/2024 Rodrigez Score Blood Edema Fundus Height Fundus Units Glucose Ketones Leukocytes Nitrite Labor Signs Protein Cervic Dilation Cervic Effacement Cervic Station Type Weight in lbs Pre/Post Dialysis Refused BP Diastolic BP Location Tested BP Systolic BP Type Fetus Heart Rate Present Fetus Movement Comments Flowsheet Date 07/14/2024 Rodrigez Score Blood Edema Fundus Height Fundus Units Glucose Ketones Leukocytes Nitrite Labor Signs Protein Cervic Dilation Cervic Effacement Cervic Station 0cm 50% -2 Type Weight in lbs Pre/Post Dialysis Refused 234.258062047010 BP Diastolic BP Location Tested BP Systolic BP Type 76 101 Fetus Heart Rate Present A Present Fetus Movement A Yes Comments NST, GBS. No c/o. CC Still n eeds urine.US done today AGA 7# 0oz, 64%, MATHEW=14.1cm jtRNST. Labor precautions discussed. Flowsheet Date 07/18/2024 Rodrigez Score Blood Edema Fundus Height Fundus Units Glucose Ketones Leukocytes Nitrite Labor Signs Protein Cervic Dilation Cervic Effacement Cervic Station none none Negative neg 1cm 50% - 2 Type Weight in lbs Pre/Post Dialysis Refused Weight 235.907978826926 BP Diastolic BP Location Tested BP Systolic BP Type 79 112 Fetus Heart Rate Present A Present Fetus Movement A Yes Comments NST, no c/o. MJARNST. Contin ue current management. Flowsheet Date 07/28/2024 Rodrigez Score Blood Edema Fundus Height Fundus Units Glucose Ketones Leukocytes Nitrite Labor Signs Protein Cervic Dilation Cervic Effacement Cervic Station Type Weight in lbs Pre/Post Dialysis Refused BP Diastolic BP Location Tested BP Systolic BP Type Fetus Heart Rate Present Fetus Movement Comments Flowsheet Date 07/28/2024 Rodrigez Score Blood Edema Fundus Height Fundus Units Glucose Ketones Leukocytes Nitrite Labor Signs Protein Cervic Dilation Cervic Effacement Cervic Station none none Negative neg 1cm 50% - 2 Type Weight in lbs Pre/Post Dialysis Refused 235.965452923848 BP Diastolic BP Location Tested BP Systolic BP Type 72 120 Fetus Heart Rate Present A Present Fetus Movement A Yes Comments NST, No FBS. No C/o. KGRNST. IOL on Thursday. Flowsheet Date 09/07/2024 Rodrigez Score Blood Edema Fundus Height Fundus Units Glucose Ketones Leukocytes Nitrite Labor Signs Protein Cervic Dilation Cervic Effacement Cervic Station Type Weight in lbs Pre/Post Dialysis Refused Weight 208.40711023057 BP Diastolic BP Location Tested BP Systolic BP Type 86 116 Fetus Heart Rate Present Fetus Movement Comments Menstrual History Last Menstrual Date Menses Monthly On Bcp Conception Prior Menses Frequency Hcg Plus Date Menarche Onset Age 0410/27/2023 Delivery Information Delivery Date Delivery Type Labor Anesthesia Weeks Gestation Incision Type Labor Labor Length Hrs Delivered By Post Complications Tubal Sterilization Discharge Date Comments Induce d Regional-Ep idural 39.1 false 9 Cherry Caro MD 08/02/2024 Discharge Information Feeding Method Contraceptive Method Maternal HG B and HCT Levels
--- OUTSIDE RECORDS SUMMARY | 2024-12-30 14:54 | XMS_ITS | Clinical Summary ---
Author Organization [facility]arciso Simms [facility] Address [address] [place] [address] Care Team Providers Care Special Events Fundraiser Name Role Phone Unavailable Primary Care Provider Unavailabl e Allergies No known active allergies Medications MV-Min-Fe Fum-FA-DHA ( 1 PO) Take by mouth Active ondansetron (ZOFRAN) 4 MG tablet Take 1 tablet by mouth every 8 hours as needed for Nausea or Vomiting Active Doxylamine Succinate, Sleep, (UNISOM PO) Take by mouth Active butalbital-acet aminophen-caffe ine (FIORICET, ESGIC) 50-325-40 MG per tablet Take 1 tablet by mouth every 4 hours as needed for Headaches Active diphenhydrAMINE (BENADRYL) 50 MG capsule Take 1 capsule by mouth every 6 hours as needed for Itching Active ibuprofen (ADVIL;MOTRIN) 200 MG tablet Take 4 tablets by mouth every 8 hours as needed for Pain 5 Active docusate sodium (COLACE, DULCOLAX) 100 MG CAPS Take 100 mg by mouth 2 times daily as needed for Constipation 5 Active Active Problems Problem Noted Date Diagnosed Date Encounter for induction of labor 07/31/2024 with complication 07/21/2024 Headache in , antepartum, third trimest er 06/10/2024 31 weeks gestation of 06/10/2024 Headache in , antepartum, third trimest er 06/10/2024 Dizziness 06/10/2024 Rapid heartbeat 06/10/2024 Diarrhea during 05/05/2024 Diarrhea 05/05/2024 Traveler's diarrhea 05/05/2024 26 weeks gestation of 05/05/2024 Encounters Date Type Department Care Team Description 11/24/2024 5:35 AM EDT - 11/24/2024 8:39 AM EDT Emergency [facility] Emergency Department [address] [place] [address] Angioedema, initial encounter (Primary Dx) Discharge Disposition: Home or Self Care 11/24/2024 Travel from Last 3 Months Family History Medical History Relation Name Comments Other Mother ms Other Sister thyroid disease Relation Name Status Comments Mother Sister Social History Tobacco Use Types Packs/Day Years Used Date Smoking Tobacco: Never Smokeless Tobacco: Never Tobacco Cessation:Counseling Given: Not Answered Alcohol Use Standard Drinks/Week Comments Never 0 (1 standard drink = 0.6 oz pur e alcohol) [facility] Utilities Answer Date Recorded In the past 12 months has th e [employer], gas, oil, or water [employer] threatened to shut off services in your [...] things needed for daily living? No 07/31/2024 [place] Depression Scale Answer Date Recorded [place] Depression Scale Total 5 08/02/2024 The thought [...] any time in the past [address] [facility], were you homeless or living in a usp (including now)? No 07/31/2024 Food Insecurity Answer [...] on file Sexual Orientation Not on file Last Filed Vital Signs Vital Sign Reading [...] Mass Index 30.13 11/24/2024 5:43 AM EDT Plan of Treatment Health Maintenance Due Date Last Done Comments Depression Screen 2010 Varicella vaccine (1 of 2 - 13+ 2-dose series) 11/27/2011 HIV screen 2013 HPV vaccine (1 - 3-dose series) 2013 Hepatitis C screen 2016 DTaP/Tdap/Td vaccine (1 - Tdap) 2017 Hepatitis B vaccine (1 of 3 - 19+ 3-dose series) 2017 COVID-19 Vaccine ( - 2023-2 5 season) 2024 Flu vaccine (Season Ended) 2025 Pap smear 01/05/2027 01/06/2024 Chlamydia/GC screen Discontinued 01/06/2024 Hepatitis A vaccine Aged Out No longe r eligible based on patient's age to complete this topic Hib vaccine Aged Out No longer eligi ble based on patient's age to complete this topic Meningococcal (ACWY) vaccine Aged Out No longer eligible based on patient's age to complete this topic Meningococcal B vaccine Aged Out No l onger eligible based on patient's age to complete this topic Pneumococcal 0-49 years Vaccine Aged Out No longer eligible based on patient's age to complete this topic Polio vaccine Aged Out No longer elig ible based on patient's age to complete this topic Procedures Procedure Name Priority Date/Time Associated Diagnosis Comments CT SOFT TISSUE NECK W CONTRAST STAT 11/24/2024 7:59 AM EDT C1 ESTERASE INHIBITOR PANEL STAT 11/24/2024 7:33 AM EDT ANION GAP Routine 11/24/2024 6:36 AM EDT OSMOLALITY Routine 11/24/2024 6:36 AM EDT GLOMERULAR FILTRATION RATE, ESTIMATED Routine 11/24/2024 6:36 AM EDT HCG, SERUM, QUALITATIVE STAT 11/24/2024 6:36 AM EDT BASIC METABOLIC PANEL STAT 11/24/2024 6:36 AM EDT CBC WITH AUTO DIFFERENTIAL STAT 11/24/2024 6:36 AM EDT C-REACTIVE PROTEIN STAT 11/24/2024 6: 36 AM EDT PAP SMEAR Routine 01/06/2024 12:00 PM EDT C.TRACHOMATIS N.GONORRHOEAE DNA, THIN PREP Routine 01/06/2024 12:00 PM EDT from Last 3 Months or Most Recently Relevant to Health Maintenance Results * CT SOFT TISSUE NECK W [...] signed by Dr. Lani Wright Chris VASQUEZ IMG CT ORDERABLES Final Resul t * C1 esterase inhibitor panel (11/24/2024 7:33 AM EDT) C1 Est.Inhib.Funct. 119 >=41 % 11/29 1:09 AM EDT [facility] Comment: The concentration of functional C1 esterase inhibitor (C1-INH) is reported as the percentage of the mean level in normal specimens. Concentrations greater than or equal to 68 percent mean normal are considered normal. INTERPRETIVE INFORMATION: [id number] Inhib. Functional 68% or greater ........ Normal 41% - 67% ............. Indeterminate 40% or less ........... Abnormal C1 Esterase Inhibitor 36 21 - 38 mg/dL 11/29/2024 1:09 AM EDT [facility] Complement Component 4 33 10 - 40 mg/dL 11/29/2024 1:09 AM EDT [facility] Comment: REFERENCE INTERVAL: Complement Component 4 Access complete set of age- and/or gender-specific reference intervals for this test in the [facility] Test Directory ([facility]). Performed By: [facility] [address] [place] [id number] [employer] Claims Adjuster: Oral Rogers MD, PhD CLIA Number: [id number] Blood BLOOD SPECIMEN / Unknown 11/24/2024 7:33 AM EDT 11/24/2024 7:45 AM EDT us Chris VASQUEZ CHEMISTRY ORDERABLES Final Re sult Performing Organization Address [facility]/ZIP Co de Phone Number [facility] [address] [place] [address], [facility] [phone] [facility] [address] [phone] * Anion Gap (11/24/2024 6:36 AM EDT) Anion Gap 13.0 8.0 - 16.0 meq/L 11/24/2024 7:28 AM EDT [facility] Comment: ANION GAP = Sodium -(Chloride + CO2) Performed at [facility] [address] [place] [address] 11/24/2024 6:36 AM EDT 11/24/2024 6:46 AM EDT us Chris VASQUEZ CHEMISTRY ORDERABLES Final Re sult Performing Organization Address [facility] Co de Phone Number [facility] [address] [place] [address], [facility] [phone] [facility] [address] [place] [address], [facility] [phone] * Glomerular Filtration Rate, Estimated (11/24/2024 6:36 AM EDT) Est, Glom Filt Rate > 90 >60 ml/min/1.7 3m2 11/24/2024 7:31 AM EDT [facility] Comment: Pediatric calculator link [...] that affects renal tubular secretion. Performed at [facility] [address] [place] [address] 11/24/2024 6:36 AM EDT 11/24/2024 6:36 AM EDT us Chris VASQUEZ CHEMISTRY ORDERABLES Final Re sult [facility] [address] [place] [address], [facility] [phone] [facility] [address] [place] [address], [facility] [phone] * CBC with Auto Differential (11/24/2024 6:36 AM EDT) WBC 10.1 4.8 - 10.8 thou/mm3 11/24/2024 7:01 AM EDT [facility] RBC 5.29 4.20 - 5.40 mill/mm3 11/24/2024 7:01 AM [facility] Hemoglobin 15.3 12.0 - 16.0 gm/dl 11/24/2024 7:01 AM T [facility] Hematocrit 45.1 37.0 - 47.0 % 11/24/2024 7:[facility] MCV 85.3 81.0 - 99.0 fL 11/24/2024 7:01 AM T [facility] MCH 28.9 26.0 - 33.0 pg 11/24/2024 7:01 AM EDT [facility] MCHC 33.9 32.2 - 35.5 gm/dl 11/24/2024 7:01 AM [facility] RDW-CV 12.3 11.5 - 14.5 % 11/24/2024 7:01 AM [facility] RDW-SD 37.8 35.0 - 45.0 fL 11/24/2024 7:01 AM [facility] Platelets 301 130 - 400 thou/mm3 11/24/2024 7:01 AM [facility] MPV 10.5 9.4 - 12.4 fL 11/24/2024 7:01 AM [facility] Seg Neutrophils 69.2 % 7:01 AM [facility] Lymphocytes 20.8 % 11/24/2024 7:01 AM [facility] Monocytes % 7.2 % 11/24/2024 7:01 AM [facility] Eosinophils 1.6 % 11/24/2024 7:01 AM [facility] Basophils 0.7 % 11/24/2024 7:01 AM [facility] Immature Granulocytes % 0.5 % 11/24/2024 7:01 AM [facility] Neutrophils Absolute 7.0 1.8 - 7.7 thou/mm3 11/24/2024 7:01 AM [facility] Lymphocytes Absolute 2.1 1.0 - 4.8 thou/mm3 11/24/2024 7:01 AM [facility] Monocytes Absolute 0.7 0.4 - 1.3 thou/mm3 11/24/2024 7:01 AM [facility] Eosinophils Absolute 0.2 0.0 - 0.4 thou/mm3 11/24/2024 7:01 AM EDT [facility] Basophils Absolute 0.1 0.0 - 0.1 thou/mm3 11/24/2024 7:01 AM EDT [facility] Immature Grans (Abs) 0.05 0.00 - 0.07 thou/mm3 11/24/2024 7:01 AM EDT [facility] nRBC 0 /100 wbc 11/24/2024 7:01 AM EDT [facility] Comment:Performed at [facility] [address] [place] [address] Blood BLOOD SPECIMEN / Unknown 11/24/2024 6:36 AM EDT 11/24/2024 6:46 AM EDT us Chris VASQUEZ HEMATOLOGY ORDERABLES Final R esult [facility] [address] [place] [address] [facility] [address] [place] [address] * (ABNORMAL) C-Reactive Protein (11/24/2024 6:36 AM EDT) CRP 0.58(H) 0.00 - 0.50 mg/dl 11/24/2024 9:13 AM EDT [facility] Comment:Performed at [facility] [facility] [address] [place] [address] Blood BLOOD SPECIMEN / Unknown 11/24/2024 6:36 AM EDT 11/24/2024 6:46 AM EDT us Chris VASQUEZ CHEMISTRY ORDERABLES Final Re sult Performing Organization Address City/[facility]/ZIP Co de Phone Number [facility] [address] [place] [address], [facility] [phone] [facility] [address] [place] [address], [facility] [phone] * HCG Qualitative, Serum (11/24/2024 6:36 AM EDT) Preg, Serum NEGATIVE NEGATIVE 11/24/2024 7:01 AM EDT [facility] Comment:Performed at [facility] [address] [place] [address] Blood BLOOD SPECIMEN / Unknown 11/24/2024 6:36 AM EDT 11/24/2024 6:46 AM EDT Chris VASQUEZ CHEMISTRY ORDERABLES Final Re sult [facility] [address] [place] [address], [facility] [phone] [facility] [address] [place] [address], [facility] [phone] * Osmolality (11/24/2024 6:36 AM EDT) Osmolality Calc 276.2 275.0 - 300.0 mOsmol/kg 11/24/2024 7:28 AM EDT [facility] Comment:Performed at [facility] [address] [place] [address] 11/24/2024 6:36 AM EDT 11/24/2024 6:46 AM EDT us Chris VASQUEZ CHEMISTRY ORDERABLES Final Re sult [facility] [address] [place] [address], [facility] [phone] [facility] [address] [place] [address], [facility] [phone] * Basic Metabolic Panel (11/24/2024 6:36 AM EDT) Sodium 139 135 - 145 meq/L 11/24/2024 7:17 AM EDT [facility] Potassium 3.9 3.5 - 5.2 meq/L 11/24/2024 7:17 AM EDT [facility] Comment: Low level specimen hemolysis is present as indicated by the interference index on the Lyly analyzer. The reported K+ level may be falsely increased. If clinically warranted, recollection of the specimen is suggested. Chloride 101 98 - 111 meq/L 11/24/2024 7:17 AM EDT [facility] CO2 25 22 - 29 meq/L 11/24/2024 7:28 AM EDT [facility] Glucose 91 74 - 109 mg/dL 11/24/2024 7:28 AM EDT [facility] BUN 10 8 - 23 mg/dL 11/24/2024 7:28 AM EDT [facility] Creatinine 0.7 0.5 - 0.9 mg/dL 11/24/2024 7:28 AM EDT [facility] Calcium 9.7 8.6 - 10.0 mg/dL 11/24/2024 7:28 AM EDT [facility] Comment:Performed at [facility] [address] [place] [address] Blood BLOOD SPECIMEN / Unknown 11/24/2024 6:36 AM EDT 11/24/2024 6:46 AM EDT us Chris VASQUEZ CHEMISTRY ORDERABLES Final Re sult [facility] [address] [place] [address], [facility] [phone] [facility] [address] [place] [address], [facility] [phone] * C.trachomatis N.gonorrhoeae DNA, Thin Prep (01/06/2024 12:00 PM EDT) C. trachomatis DNA,Thin Prep NEGATIVE NEG 01/11/2024 1:21 PM EDT [facility] Comment: CHLAMYDIA TRACHOMATIS DNA not detected by nucleic acid amplification. This test is intended for medical purposes only and is not valid for the evaluation of suspected sexual abuse or for other forensic purposes. In certain contexts, culture may be required to meet applicable laws and regulations for diagnosis of C. trachomatis and N. gonorrhoeae infections. Per 2014 CDC recommendations, this test does not include confirmation of positive results by an alternative nucleic acid target. N. gonorrhoeae DNA, Thin Prep NEGATIVE NEG 01/11/2024 1:21 PM EDT [facility] Comment: NEISSERIA GONORRHOEAE DNA not detected by nucleic acid amplification. This test is intended for medical purposes only and is not valid for the evaluation of suspected sexual abuse or for other forensic purposes. In certain contexts, culture may be required to meet applicable laws and regulations for diagnosis of C. trachomatis and N. gonorrhoeae infections. Per 2014 CDC recommendations, this test does not include confirmation of positive results by an alternative nucleic acid target. Performed at [facility], [address] [place] [address] . Source Cervical 01/07/2024 1:08 PM EDT [facility] 01/06/2024 12:0 0 PM EDT 01/07/2024 1:09 PM EDT Cherry Caro MD MICROBIOLOGY - GENERAL ORDERABL ES Final Result [facility] [address] [place] [address], [facility] [phone] [address], [facility] [phone] * PAP SMEAR (01/06/2024 12:00 PM EDT) Cytology Thin Prep SEE BELOW 2023 9:06 AM EDT [facility] Comment: Path Number: [id number] DIAGNOSIS Cervical-Endocervical material, (Thin prep vial, Imaging-assisted review): Specimen Adequacy: Satisfactory for evaluation. - Endocervical/transformation zone component present. Descriptive Diagnosis: NEGATIVE FOR INTRAEPITHELIAL LESION OR MALIGNANCY. Cytotech Screener: EY Electronically Signed Out Nora AGUIRRE(ASCP) ey/01/19/2024 Source of Specimen: A: Cervical-Endocervical material, (Thin prep vial, Imaging-assisted review) HPV Reflex?......................HPV if Abnormal Clinical History Z12.4 Encounter for screening for malignant neoplasm of cervix STD exposure Z36.89 Processing Lab: [address] [phone] Interpretation performed at [address] [phone] This Pap Test has been evaluated with the assistance of the [employer] Pap Test Imaging System. The Pap smear is a screening test primarily for squamous epithelial lesions, which is subject to both false negative and false positive results. Your patient should be reminded to consult you immediately if she experiences any suspicious signs or symptoms, regardless of her Pap smear result. GYNECOLOGIC CYTOLOGY REPORT Patient Name: GHADA ARCHIBALD [facility] Rec: [id number] [facility] ANATOMIC PATHOLOGY [address] [place] [address] 01/06/2024 12:0 0 PM EDT 01/07/2024 1:09 PM EDT us Cherry Caro MD PATHOLOGY/CYTOLOGY ORDERABLES F inal Result [facility] [address] [place] [address], [facility] [phone] [employer] [address] [place] [address] from Last 3 Months or Most Recently Relevant to Health Maintenance Insurance R Advance Directives * Full Code (Latest Code Status on File) Date Activated Date Inactivated Comments 07/31/2024 5:12 PM 08/01/2024 8:18 PM
[2024-12-30 15:02] LABS: HCG,Quantitative 9 mIU/ml (0-5.42)
== END 2024-12-30 17:35 | disposition home or self-care (01) ==
PROVIDERS: Emergency Provider Emergency Medicine; PCP Nurse Practitioner
DX: O03.4 Incomplete spontaneous abortion without complication (principal); N39.0 Urinary tract infection, site not specified
CPT/HCPCS: 76817; 80053; 81001; 84702; 85025; 86900; 86901; 87086; 99284

== ENCOUNTER 2025-02-14 11:58 | Outpatient (CLI) | payer BC, SELFPAY ==
--- OUTSIDE RECORDS SUMMARY | 2025-02-14 12:01 | XMS_ITS | Clinical Summary ---
Author Organization [facility] Address [address], [address] [place] [address] Care Team Providers Care Turbine Operator Name Role Phone Unavailable Primary Care Provider [...] EDT - 11/24/2024 8:39 AM EDT Emergency [facility] Emergency Department [address] [place] [address] Angioedema, initial encounter (Primary Dx) Discharge Disposition: [...] drink = 0.6 oz pur e alcohol) [facility] Utilities Answer Date Recorded In the past 12 months has th e [employer], gas, oil, or water [employer] threatened to shut off services in your [...] things needed for daily living? No 07/31/2024 Jones Depression Scale Answer Date Recorded Jones Depression Scale Total 5 08/02/2024 The thought [...] any time in the past 12 m [facility], were you homeless or living in a intermediate (including now)? No 07/31/2024 Food Insecurity Answer [...] - 2023-2 5 season) 2024 Flu vaccine (#1) 02/24/2025 Pap smear 01/05/2027 01/06/2024 Chlamydia/GC screen Discontinued [...] technology. Electronically signed by Dr. Lani Wright us Chris VASQUEZ IMG CT ORDERABLES Final Resul t * C1 esterase inhibitor panel (11/24/2024 7:33 AM EDT) C1 Est.Inhib.Funct. 119 >=41 % 11/29 1:09 AM EDT [facility] Comment: The concentration of functional C1 esterase inhibitor (C1-INH) is reported as the percentage of the mean level in normal specimens. Concentrations greater than or equal to 68 percent mean normal are considered normal. INTERPRETIVE INFORMATION: Q-9-Xramotzc Inhib. Functional 68% or greater ........ Normal 41% - 67% ............. Indeterminate 40% or less ........... Abnormal C1 Esterase Inhibitor 36 21 - 38 mg/dL 11/29/2024 1:09 AM EDT [facility] Complement Component 4 33 10 - 40 mg/dL 11/29/2024 1:09 AM EDT [facility] Comment: REFERENCE INTERVAL: Complement Component 4 Access complete set of age- and/or gender-specific reference intervals for this test in the [facility] Test Directory ([employer]). Performed By: [employer] [address] [place] [id number] Tube Cutter: Oral Rogers MD, PhD CLIA Number: [id number] Blood BLOOD SPECIMEN / Unknown 11/24/2024 7:33 AM EDT 11/24/2024 7:45 AM EDT us Chris VASQUEZ CHEMISTRY ORDERABLES Final Re sult Performing Organization Address [facility]/ZIP Co de Phone Number [facility] [address] [place] [address], [facility] [phone] [facility] [address] [place], [place] [id number] [place] [address] * Anion Gap (11/24/2024 6:36 AM EDT) Anion Gap 13.0 8.0 - 16.0 meq/L 11/24/2024 7:28 AM EDT [facility] Comment: ANION GAP = Sodium -(Chloride + CO2) Performed at [facility] [address] [place] [address] 11/24/2024 6:36 AM EDT 11/24/2024 6:46 AM EDT us Chris VASQUEZ CHEMISTRY ORDERABLES Final Re sult Performing Organization Address [facility] Co de Phone Number [facility] [address] [place] [address], [facility] [phone] [facility] [address] [place] [address], [facility] [phone] * Glomerular Filtration Rate, Estimated (11/24/2024 6:36 AM EDT) Est, Glom Filt Rate > 90 >60 ml/min/1.7 3m2 11/24/2024 7:31 AM EDT [facility] Comment: Pediatric calculator link https://www.kidney.org/professionals/kdoqi/gfr_calculatorped [...] that affects renal tubular secretion. Performed at [facility] [address] [place] [address] 11/24/2024 6:36 AM EDT 11/24/2024 6:36 AM EDT us Chris VASQUEZ CHEMISTRY ORDERABLES Final Re sult [facility] [address] [place] [address], [facility] [phone] [facility] [address] [place] [address], [facility] [phone] * CBC with Auto Differential (11/24/2024 6:36 AM EDT) WBC 10.1 4.8 - 10.8 thou/mm3 11/24/2024 7:01 AM EDT [facility] RBC 5.29 4.20 - 5.40 mill/mm3 11/24/2024 7:01 AM [facility] Hemoglobin 15.3 12.0 - 16.0 gm/dl 11/24/2024 7:01 AM T [facility] Hematocrit 45.1 37.0 - 47.0 % 11/24/2024 7:01 AM [facility] MCV 85.3 81.0 - 99.0 fL 11/24/2024 7:01 AM EDT [facility] MCH 28.9 26.0 - 33.0 pg 11/24/2024 7:01 AM EDT [facility] MCHC 33.9 32.2 - 35.5 gm/dl 11/24/2024 7:01 AM [facility] RDW-CV 12.3 11.5 - 14.5 % 11/24/2024 7:01 AM [facility] RDW-SD 37.8 35.0 - 45.0 fL 11/24/2024 7:01 AM [facility] Platelets 301 130 - 400 thou/mm3 11/24/2024 7:01 AM [facility] MPV 10.5 9.4 - 12.4 fL 11/24/2024 7:01 AM [facility] Seg Neutrophils 69.2 % 7:01 AM [facility] Lymphocytes 20.8 % 11/24/2024 7:01 AM [facility] Monocytes % 7.2 % 11/24/2024 7:01 AM [facility] Eosinophils 1.6 % 11/24/2024 7:01 AM [facility] Basophils 0.7 % 11/24/2024 7:01 AM [facility] Immature Granulocytes % 0.5 % 11/24/2024 7:01 AM [facility] Neutrophils Absolute 7.0 1.8 - 7.7 thou/mm3 11/24/2024 7:01 AM [facility] Lymphocytes Absolute 2.1 1.0 - 4.8 thou/mm3 11/24/2024 7:01 AM [facility] Monocytes Absolute 0.7 0.4 - 1.3 thou/mm3 11/24/2024 7:01 AM [facility] Eosinophils Absolute 0.2 0.0 - 0.4 thou/mm3 11/24/2024 7:01 AM EDT [facility] Basophils Absolute 0.1 0.0 - 0.1 thou/mm3 11/24/2024 7:01 AM EDT [facility] Immature Grans (Abs) 0.05 0.00 - 0.07 thou/mm3 11/24/2024 7:01 AM EDT [facility] nRBC 0 /100 wbc 11/24/2024 7:01 AM EDT [facility] Comment:Performed at [facility] [address] [place] [address] Blood BLOOD SPECIMEN / Unknown 11/24/2024 6:36 AM EDT 11/24/2024 6:46 AM EDT us Chris VASQUEZ HEMATOLOGY ORDERABLES Final R esult Performing Organization Address City/[facility]/ZIP Co de Phone Number [facility] [address] [place] [address] [facility] [address] [place] [address] * (ABNORMAL) C-Reactive Protein (11/24/2024 6:36 AM EDT) CRP 0.58(H) 0.00 - 0.50 mg/dl 11/24/2024 9:13 AM EDT [facility] Comment:Performed at [facility] [address] [place] [address] Blood BLOOD SPECIMEN / Unknown 11/24/2024 6:36 AM EDT 11/24/2024 6:46 AM EDT us Chris VASQUEZ CHEMISTRY ORDERABLES Final Re sult Performing Organization Address City/[facility]/ZIP Co de Phone Number [facility] [address] [place], [place] [id number], [facility] [phone] [facility] [address] [place] [address], [facility] [phone] * HCG Qualitative, Serum (11/24/2024 6:36 AM EDT) Preg, Serum NEGATIVE NEGATIVE 11/24/2024 7:01 AM EDT [facility] Comment:Performed at [facility] [address] [place] [address] Blood BLOOD SPECIMEN / Unknown 11/24/2024 6:36 AM EDT 11/24/2024 6:46 AM EDT us Chris VASQUEZ CHEMISTRY ORDERABLES Final Re sult [facility] [address] [place] [address], [facility] [phone] [facility] [address] [place] [address], [facility] [phone] * Osmolality (11/24/2024 6:36 AM EDT) Osmolality Calc 276.2 275.0 - 300.0 mOsmol/kg 11/24/2024 7:28 AM EDT [facility] Comment:Performed at [facility] [address] [place] [address] 11/24/2024 6:36 AM EDT 11/24/2024 6:46 AM EDT us Chris VASQUEZ CHEMISTRY ORDERABLES Final Re sult [facility] [address] [place] [address], [facility] [phone] [facility] [address] [place] [address], [facility] [phone] * Basic Metabolic Panel (11/24/2024 6:36 AM EDT) Sodium 139 135 - 145 meq/L 11/24/2024 7:17 AM EDT [facility] Potassium 3.9 3.5 - 5.2 meq/L 11/24/2024 7:17 AM EDT [facility] Comment: Low level specimen hemolysis is present as indicated by the interference index on the Lyly analyzer. The reported K+ level may be falsely increased. If clinically warranted, recollection of the specimen is suggested. Chloride 101 98 - 111 meq/L 11/24/2024 7:17 AM EDT [facility] CO2 25 22 - 29 meq/L 11/24/2024 7:28 AM EDT [facility] Glucose 91 74 - 109 mg/dL 11/24/2024 7:28 AM EDT [facility] BUN 10 8 - 23 mg/dL 11/24/2024 7:28 AM EDT [facility] Creatinine 0.7 0.5 - 0.9 mg/dL 11/24/2024 7:28 AM EDT [facility] Calcium 9.7 8.6 - 10.0 mg/dL 11/24/2024 7:28 AM EDT [facility] Comment:Performed at [facility] [address] [place] [address] Blood BLOOD SPECIMEN / Unknown 11/24/2024 6:36 AM EDT 11/24/2024 6:46 AM EDT us Chris VASQUEZ CHEMISTRY ORDERABLES Final Re sult [facility] [address] [place] [address], [facility] [phone] [facility] [address] [place] [address], [facility] [phone] * C.trachomatis N.gonorrhoeae DNA, Thin Prep (01/06/2024 12:00 PM EDT) C. trachomatis DNA,Thin Prep NEGATIVE NEG 01/11/2024 1:21 PM EDT [facility] Comment: CHLAMYDIA TRACHOMATIS DNA not detected by [...] Prep NEGATIVE NEG 01/11/2024 1:21 PM EDT [facility] [employer] Comment: NEISSERIA GONORRHOEAE DNA not detected by [...] an alternative nucleic acid [place]. [place] [address] . Source Cervical 01/07/2024 1:08 PM EDT [facility] 01/06/2024 12:0 0 PM EDT 01/07/2024 1:09 PM EDT Cherry Caro MD MICROBIOLOGY - GENERAL ORDERABL ES Final Result [facility] [address] [place] [address], [facility] [phone] [address], [facility] [phone] * PAP SMEAR (01/06/2024 12:00 PM EDT) Cytology Thin Prep SEE BELOW 2023 9:06 AM EDT [employer] [facility] Comment: Path Number: [id number] DIAGNOSIS Cervical-Endocervical material, (Thin prep vial, Imaging-assisted [...] of cervix STD exposure Z36.89 Processing Lab: [address] [address] Interpretation performed at [address] [address] This Pap Test has been evaluated with the assistance of the [employer] Pap Test Imaging System. The Pap smear is a screening test primarily for squamous epithelial lesions, which is subject to both false negative and false positive results. Your patient should be reminded to consult you immediately if she experiences any suspicious signs or symptoms, regardless of her Pap smear result. GYNECOLOGIC CYTOLOGY REPORT Patient Name: GHADA ARCHIBALD [facility] Rec: [id number] [facility] ANATOMIC PATHOLOGY [address] [place] [address]. [place] [phone] 01/06/2024 12:0 0 PM EDT 01/07/2024 1:09 PM EDT us Cherry Caro MD PATHOLOGY/CYTOLOGY ORDERABLES F inal Result [facility] [address] [place] [address], [facility] [phone] [employer] [phone] from Last 3 Months or Most Recently Relevant to Health Maintenance Insurance [employer] Advance Directives * Full Code (Latest Code Status on File) Date Activated Date Inactivated Comments 07/31/2024 5:12 PM 08/01/2024 8:18 PM
--- OUTSIDE RECORDS SUMMARY | 2025-02-14 12:01 | XMS_ITS | Continuity of Care Document ---
Author Organization DANIEL - [facility] [place], [facility] Address [address] [place] [address] Care Team Providers Care Senior Integration Architect Name Role Phone GRAZYNA HARDEN Primary Care Provider Unavaila ble Assessment No assessment recorded. Plan of Treatment Reminders Order Date Submit Date Provider Last Modified By Organization Details Last Modified Time Details Appointments None recorded. Lab respiratory allergen panel - [facility] a 2024 025 LISA [facility], [address], [address], [place], [address], 5 15:11:30 unlisted lab - allergy profile, food 2024 025 LISA [facility], [address], [address], [place], [address], 5 15:11:28 HASEEB (antinuclea r antibodies) screen, serum 2024 025 LISA [facility], [address], [address], [place], [address], 5 15:11:29 ESR (erythrocyt e sedimentati on rate), blood 2024 025 LISA [facility], [address], [address], [place], [address], 5 15:11:31 C reactive protein, QN, serum or plasma 2024 025 LISA [facility], [address], [address], [place], [address], 15:11:31 Referral None recorded. Procedures None recorded. [...] >100. 00 Very High Not Available [facility] ([facility]) [address] [place], [address], 12/28/2024 15:11:28 12/27/19 25 12/28/2024 ALLER GY PROFI LE, FOOD B457-IsQ soybean <0.10 kU/L class 0 Not Available [facility] ([facility]) [address] [place], [address], 12/28/2024 15:11:28 12/27/19 25 12/28/2024 ALLER GY PROFI LE, FOOD D778-FfN almond <0.10 kU/L class 0 Not Available [facility] ([facility]) [address] [place], [address], 12/28/2024 15:11:28 12/27/19 25 12/28/2024 ALLER GY PROFI LE, FOOD J664-XpG codfish <0.10 kU/L class 0 Not Available [facility] ([facility]) [address] [place], [address], 12/28/2024 15:11:28 12/27/19 25 12/28/2024 ALLER GY PROFI LE, FOOD C334-EbC salmon <0.10 kU/L class 0 Not Available [facility] ([facility]) [address] [place], [address], 12/28/2024 15:11:28 12/27/19 25 12/28/2024 ALLER GY PROFI LE, FOOD B347-QuG tuna <0.10 kU/L class 0 Not Available [facility] ([facility]) [address] [place], [address], 12/28/2024 15:11:28 12/27/19 25 12/28/2024 ALLER GY PROFI LE, FOOD B117-RhV scallop 0.19 kU/L class 0/I abnormal Not Available [facility] ([facility]) [address] [place], [address], 12/28/2024 15:11:28 12/27/19 25 12/28/2024 ALLER GY PROFI LE, FOOD D161-QtF shrimp 8.96 kU/L class IV abnormal Not Available [facility] ([facility]) [address] [place], [address], 12/28/2024 15:11:28 12/27/19 25 12/28/2024 ALLER GY PROFI LE, FOOD J178-HeG milk <0.10 kU/L class 0 Not Available [facility] ([facility]) [address] [place], [address], 12/28/2024 15:11:28 12/27/19 25 12/28/2024 ALLER GY PROFI LE, FOOD X918-FcB egg white <0.10 kU/L class 0 Not Available [facility] ([facility]) [address] [facility] [place], [address], 12/28/2024 15:11:28 12/27/19 25 12/28/2024 ALLER GY PROFI LE, FOOD C117-PqU sesame seed <0.10 kU/L class 0 Not Available [facility] ([facility]) [address] [place], [address], 12/28/2024 15:11:28 12/27/19 25 12/28/2024 ALLER GY PROFI LE, FOOD B103-XwC peanut <0.10 kU/L class 0 Not Available [facility] ([facility]) [address] [facility], [place], [address], 12/28/2024 15:11:28 12/27/19 25 12/28/2024 ALLER GY PROFI LE, FOOD R371-QfX hazelnut (filbert) <0.10 kU/L class 0 Not Available [facility] ([facility]) [address] [place], [address], 12/28/2024 15:11:28 12/27/19 25 12/28/2024 ALLER GY PROFI LE, FOOD E339-PvE walnut <0.10 kU/L class 0 Not Available [facility] ([facility]) [address] [place], [address], 12/28/2024 15:11:28 12/27/19 25 12/28/2024 ALLER GY PROFI LE, FOOD Q185-SaW cashew nut <0.10 kU/L class 0 Not Available [facility] ([facility]) [address] [place], [address], 12/28/2024 15:11:28 12/27/19 25 12/28/2024 ALLER GY PROFI LE, FOOD V458-WqE brazil nut <0.10 kU/L class 0 Not Available [facility] ([facility]) [address] [place], [address], 12/28/2024 15:11:28 12/27/19 25 12/28/2024 ALLER GY PROFI LE, FOOD A861-HxP tri A 19(W-5 gliadin) <0.10 kU/L class 0 Not Available [facility] ([facility]) [address] [facility], [place], [address], 12/28/2024 15:11:28 12/27/19 25 12/28/2024 ALLER GY PROFI LE, FOOD M962-GpQ wheat <0.10 kU/L class 0 Not Available [facility] ([facility]) [address] [facility], [place], [address], 12/28/2024 15:11:28 12/27/19 25 12/28/2024 ALLER GY PROFI LE, FOOD reflex MRP CONTROLLER Not Available [facility] ([facility]) [address] [facility], [place], [address], 12/28/2024 15:11:28 12/27/19 25 12/28/2024 HASEEB, IFA [...] Patte rns (ICAP ). Not Available [facility] ([facility]) [address] [facility], [place], [address], 12/28/2024 15:11:29 12/27/19 25 12/28/2024 ALLER GENS W/TOT AL IGE AREA 5 immunoglobul in E, total 302 IU/mL 6-495 Not Available [facility] ([facility]) [address] [facility], [place], [address], 12/28/2024 15:11:30 12/27/19 25 12/28/2024 ALLER GENS W/TOT AL IGE AREA 5 L772-FkN D pteronyssinu s 0.86 kU/L class II abnormal Not Available [facility] ([facility]) [address] [place], [address], 12/28/2024 15:11:30 12/27/19 25 12/28/2024 ALLER GENS W/TOT AL IGE AREA 5 L027-UmT D farinae 1.00 kU/L class II abnormal Not Available [facility] ([facility]) [address] [place], [address], 12/28/2024 15:11:30 12/27/19 25 12/28/2024 ALLER GENS W/TOT AL IGE AREA 5 H390-YjI CAT dander 0.13 kU/L class 0/I abnormal Not Available [facility] ([facility]) [address] [place], [address], 12/28/2024 15:11:30 12/27/19 25 12/28/2024 ALLER GENS W/TOT AL IGE AREA 5 N680-JbD dog dander <0.10 kU/L class 0 Not Available [facility] ([facility]) [address] [place], [address], 12/28/2024 15:11:30 12/27/19 25 12/28/2024 ALLER GENS W/TOT AL IGE AREA 5 R067-VsO mouse urine <0.10 kU/L class 0 Not Available [facility] ([facility]) [address] [place], [address], 12/28/2024 15:11:30 12/27/19 25 12/28/2024 ALLER GENS W/TOT AL IGE AREA 5 l187-KhU bermuda grass <0.10 kU/L class 0 Not Available [facility] ([facility]) [address] [place], [address], 12/28/2024 15:11:30 12/27/19 25 12/28/2024 ALLER GENS W/TOT AL IGE AREA 5 f609-IjU van grass <0.10 kU/L class 0 Not Available [facility] ([facility]) [address] [place], [address], 12/28/2024 15:11:30 12/27/19 25 12/28/2024 ALLER GENS W/TOT AL IGE AREA 5 N357-TdQ cockroach, greenlandic 9.01 kU/L class IV abnormal Not Available [facility] ([facility]) [address] [place], [address], 12/28/2024 15:11:30 12/27/19 25 12/28/2024 ALLER GENS W/TOT AL IGE AREA 5 M368-ZuV penicillium chrysogen <0.10 kU/L class 0 Not Available [facility] ([facility]) [address] [place], [address], 12/28/2024 15:11:30 12/27/19 25 12/28/2024 ALLER GENS W/TOT AL IGE AREA 5 X069-FjJ cladosporium herbarum <0.10 kU/L class 0 Not Available [facility] ([facility]) [address] [place], [address], 12/28/2024 15:11:30 12/27/19 25 12/28/2024 ALLER GENS W/TOT AL IGE AREA 5 U047-NsH aspergillus fumigatus <0.10 kU/L class 0 Not Available [facility] ([facility]) [address] [place], [address], 12/28/2024 15:11:30 12/27/19 25 12/28/2024 ALLER GENS W/TOT AL IGE AREA 5 Z499-UqW alternaria alternata <0.10 kU/L class 0 Not Available [facility] ([facility]) [address] [place], [address], 12/28/2024 15:11:30 12/27/19 25 12/28/2024 ALLER GENS W/TOT AL IGE AREA 5 P807-CeE maple/box elder <0.10 kU/L class 0 Not Available [facility] ([facility]) [address], [place], [address], 12/28/2024 15:11:30 12/27/19 25 12/28/2024 ALLER GENS W/TOT AL IGE AREA 5 D530-DfC common silver birch <0.10 kU/L class 0 Not Available [facility] ([facility]) [address] [facility], [place], [address], 12/28/2024 15:11:30 12/27/19 25 12/28/2024 ALLER GENS W/TOT AL IGE AREA 5 N195-WjE cedar, mountain <0.10 kU/L class 0 Not Available [facility] ([facility]) [address] [facility], [place], [address], 12/28/2024 15:11:30 12/27/19 25 12/28/2024 ALLER GENS W/TOT AL IGE AREA 5 A359-VaU oak, white <0.10 kU/L class 0 Not Available [facility] ([facility]) [address] [facility], [place], [address], 12/28/2024 15:11:30 12/27/19 25 12/28/2024 ALLER GENS W/TOT AL IGE AREA 5 G875-DwV elm, mauritanian <0.10 kU/L class 0 Not Available [facility] ([facility]) [address] [facility], [place], [address], 12/28/2024 15:11:30 12/27/19 25 12/28/2024 ALLER GENS W/TOT AL IGE AREA 5 I388-CtS walnut <0.10 kU/L class 0 Not Available [facility] ([facility]) [address], [place], [address], 12/28/2024 15:11:30 12/27/19 25 12/28/2024 ALLER GENS W/TOT AL IGE AREA 5 L139-PuE maple leaf sycamore <0.10 kU/L class 0 Not Available [facility] ([facility]) [address], [place], [address], 12/28/2024 15:11:30 12/27/19 25 12/28/2024 ALLER GENS W/TOT AL IGE AREA 5 G280-QkL cottonwood <0.10 kU/L class 0 Not Available [facility] ([facility]) [address], [place], [address], 12/28/2024 15:11:30 12/27/19 25 12/28/2024 ALLER GENS W/TOT AL IGE AREA 5 W206-ApE sonia, white <0.10 kU/L class 0 Not Available [facility] ([facility]) [address], [place], [address], 12/28/2024 15:11:30 12/27/19 25 12/28/2024 ALLER GENS W/TOT AL IGE AREA 5 S290-VfP pecan, hickory <0.10 kU/L class 0 Not Available [facility] ([facility]) [address] [facility], [place], [address], 12/28/2024 15:11:30 12/27/19 25 12/28/2024 ALLER GENS W/TOT AL IGE AREA 5 T130-RyI white mulberry <0.10 kU/L class 0 Not Available [facility] ([facility]) [address] [facility], [place], [address], 12/28/2024 15:11:30 12/27/19 25 12/28/2024 ALLER GENS W/TOT AL IGE AREA 5 S913-BwW ragweed, short <0.10 kU/L class 0 Not Available [facility] ([facility]) [address] [facility], [place], [address], 12/28/2024 15:11:30 12/27/19 25 12/28/2024 ALLER GENS W/TOT AL IGE AREA 5 C893-GlG thistle, puerto rican <0.10 kU/L class 0 Not Available [facility] ([facility]) [address] [facility], [place], [address], 12/28/2024 15:11:30 12/27/19 25 12/28/2024 ALLER GENS W/TOT AL IGE AREA 5 H116-ScY pigweed, common <0.10 kU/L class 0 Not Available [facility] ([facility]) [address] [facility], [place], [address], 12/28/2024 15:11:30 12/27/19 25 12/28/2024 ALLER GENS W/TOT AL IGE AREA 5 W608-LrE sheep sorrel <0.10 kU/L class 0 Not Available [facility] ([facility]) [address] [facility], [place], [address], 12/28/2024 15:11:30 12/27/19 25 12/27/2024 SEDIM ENTAT ION RATE- WESTE RGREN sedimentatio n rate-westerg daniela 17 mm/HR 0-32 normal Not Available [facility] ([facility]) [address] [facility], [place], [address], 12/28/2024 15:11:31 12/27/19 25 12/27/2024 C-STACIE CTIVE PROTE IN, QUANT C-reactive protein, quant 5 mg/L 0-10 normal Not Available [facility] ([facility]) [address] [facility] [place], [address], 12/28/2024 15:11:31 Result Notes None recorded. Problems Name Problem SNOMED Code Status Onset Date Resolution Date Notes Provider Name and Address Organization Details Recorded Time Allergy to food 432416365 Active DANIEL Scott [facility] [place] 16:14:28 Problem Notes None recorded. Procedures Surgical History Date Name Laterality Status Provider Name and Address Organization Details Recorded Time endoscopic balloon dilation of ostium of paranasal sinus completed Pretty Guzman [facility] [place] 12/26/2024 11:18:52 Imaging Results None recorded. Procedure Notes None recorded. Medical Equipment None Reported. Allergies Allergen ID Allergen Name Allergen Category Reaction Reaction Severity Criticality Documentation Date Start Date Code Code System Note Provider Name and Address Organization Details Recorded Time 871681 shellfish derived food,medi cation Not available Not available Not available 12/28/2024 61050 [facility] Lee Ann coy [facility] [place] 16:11:37 459604 house dust mite environme nt Not available Not available Not available 12/28/2024 47493 [facility] Lee Ann coy [facility] [place] 16:11:48 315233 cat dander environme nt Not available Not available Not available 12/28/2024 89544 [facility] DANIEL Mariscal [facility] & [place] 16:12:13 916778 cockroach environme nt Not available Not available Not available 12/28/2024 18582 9 Ivan coy [facility] [place] 16:12:21 822311 scallop allergeni c extract food Not available Not available Not available 12/28/2024 90705 6 RxNorm Lee Ann coy [facility] [place] 16:12:30 Medications Name Sig Start Date Stop Date Status Note LastModified by Organization Details LastModified Time prednisone 10 mg tablet 4 tablets daily for 5 days, then decrease by 1 tablet daily until 0 dose 2024 active Not Available Not Available Not Avai lable fexofenadine 180 mg tablet Take 1 tablet every day by oral route for 90 days. 2024 active Not Available Not Available Not Avai lable Pepcid 40 mg tablet Take 1 tablet every day by oral route. active OTC Not Available Not Available No t Available montelukast 10 mg tablet Take 1 tablet every day by oral route for 90 days. 2024 active Not Available Not Available Not Avai lable Pepcid 20 mg tablet Take 1 tablet every day by oral route for 90 days. 2024 active Not Available Not Available Not Avai lable EpiPen 2-Latrell 0.3 mg/0.3 mL injection, auto-injector Take 0.3 mg as needed by injection route as directed for 30 days. 2024 active Not Available Not Available Not Avai lable Vitals Date Recorded Body height Body mass index (BMI) Body weight Body temperature Oxygen saturation Oxygen saturation in Arterial blood by Pulse oximetry Respiratory rate Heart rate Systolic And Diastolic Provider Name and Address Organization Details Last Updated DateTime 175.26 cm 30.3 kg/m2 00209.1 4 g 98.8 [degF] 98 % 98 % 16 /min 126 /min 118/62 mm[Hg] Pretty Guzman [facility] [place] 11:21:06 Social History Question Answer Notes LastModified by Tã Em Bé Details LastModified Time Tobacco Smoking Status Never Smoker Pretty Guzman [facility] [place] 12/26/2024 11:14:34 Do You Have An Advance Directive? No Information not available 12/26/2024 Are You Blind Or Do You Have Difficulty Seeing? No [email or web address] Information not available 12/26/2024 What Is Your Level Of Caffeine Consumption? Moderate [email or web address] Information not available 12/26/2024 What Type Of Diet Are You Following? REGULAR Information not available 12/26/2024 Are You Passively Exposed To Smoke? No [email or web address] Information not available 12/26/2024 Sex: Female Functional Status Question Answer Note LastModified by Organizat ion Details LastModified Time Do you use any illicit or recreational drugs? No [email or web address] Information not available 12/26/2024 Do you or have you ever used any other forms of tobacco or nicotine? No [email or web address] Information not available 12/26/2024 What is your level of alcohol consumption? Occasional [email or web address] Information not available 12/26/2024 Do you or have you ever used smokeless tobacco? Never used smokeless tobacco [email or web address] Information not available 12/26/2024 What is your exercise level? Occasional [email or web address] Information not available 12/26/2024 Mental Status Question Answer Note LastModified by Organization D etails LastModified Time Do you feel stressed (tense, restless, nervous, or anxious, or unable to sleep at night)? [id number] [email or web address] Information not available 12/26/2024 Family History Relationship Description Onset Age of this Age Resolved Age Notes LastModified by Organization Details LastModified Time Mother Multiple sclerosis [email or web address] Not available 08/2024 11:15:54 Sister [place] thyroiditis Not available 0 12/26/2024 11:16:18 Paternal Grandmother Diabetes mellitus Not available 08/2024 11:16:53 Maternal Grandfather Malignant tumor of stomach [email or web address] Not available 08/2024 11:17:32 Paternal Grandfather Neoplasm of brain [email or web address] Not available 08/2024 11:17:44 Medical History Condition Response Other Y Psychiatric/Mental Health Condition Y Gynecological History Statement/Question Response Abnormal Pap N Date of LMP 12/22/2024 Sexually Active? Y Obstetrics History GPAL:G 0 P 0 0 0 0 Past Encounters Encounter ID Performer Location Encounter Start Date Encounter Closed Date Diagnosis/Indication Diagnosis SNOMED-CT Code Diagnosis ICD10 Code Diagnosis Note [id number] MD [facility] [address] [place] [address] 12/26/2024 10:55:58 12/26/2024 12:26:59 History of angioedema 3814015493 108 Z87.898 As stated in HPI, patient presents today with concerns regarding multiple incidences of angioedema over the last 9 years with no real workup as to the cause. Laboratory assessment has been ordered, will await results to determine further treatment plan. Standardiz ed adult depression screening tool completed [id number] 44747 Z13.31 Negative PHQ-9. Health Concerns Section Related [...] a 24-year-old female who presents today to [facility]. Patient also presents today with concerns regarding [...] any further workup. SOLITARIO PASTRANA, DORITA [address] [facility], [place], [address], [facility] [place] [facility] [place] & [place] 12/26/2024 14:00:49 OBGyn Episode No OBEpisode recorded.
--- OUTSIDE RECORDS SUMMARY | 2025-02-14 12:01 | XMS_ITS | Data Portability ---
Author Organization [place] - [facility] Address [address] [place] [address] Care Team Providers Care Business Systems Lead Name Role Phone GRAZYNA HARDEN Primary Care Provider Unavaila ble Assessment No assessment recorded. Plan of Treatment Reminders Order Date Submit Date Provider Last Modified By Organization Details Last Modified Time Details Appointments None recorded. Lab respiratory allergen panel - [facility] a 2024 025 LISA [facility], [address], [address], [place], [address], 5 15:11:30 unlisted lab - allergy profile, food 2024 025 LISA [facility], [address], [address] [address], [place], [address], 5 15:11:28 HASEEB (antinuclea r antibodies) screen, serum 2024 025 LISA [facility], [address], [place] [address], [place], [address], 5 15:11:29 ESR (erythrocyt e sedimentati on rate), blood 2024 025 LISA [facility], [address], [place] [address], [place], [address], 5 15:11:31 C reactive protein, QN, serum or plasma 2024 025 LISA [facility], [address], [address] [address], [place], [address], 15:11:31 Referral None recorded. Procedures None recorded. [...] High Not Available [facility] ([facility]) [address] [place], [address], 12/28/2024 15:11:28 12/27/19 25 12/28/2024 ALLER GY PROFI LE, FOOD L383-TqP soybean <0.10 kU/L class 0 Not Available [facility] ([facility]) [address] [place], [address], 12/28/2024 15:11:28 12/27/19 25 12/28/2024 ALLER GY PROFI LE, FOOD W424-LpI almond <0.10 kU/L class 0 Not Available [facility] ([facility]) [address] [place], [address], 12/28/2024 15:11:28 12/27/19 25 12/28/2024 ALLER GY PROFI LE, FOOD W426-VhL codfish <0.10 kU/L class 0 Not Available [facility] ([facility]) [address] [place], [address], 12/28/2024 15:11:28 12/27/19 25 12/28/2024 ALLER GY PROFI LE, FOOD N189-AjK salmon <0.10 kU/L class 0 Not Available [facility] ([facility]) [address] [place], [address], 12/28/2024 15:11:28 12/27/19 25 12/28/2024 ALLER GY PROFI LE, FOOD K465-JlV tuna <0.10 kU/L class 0 Not Available [facility] ([facility]) [address] [place], [address], 12/28/2024 15:11:28 12/27/19 25 12/28/2024 ALLER GY PROFI LE, FOOD T743-JtV scallop 0.19 kU/L class 0/I abnormal Not Available [facility] ([facility]) [address] [place], [address], 12/28/2024 15:11:28 12/27/19 25 12/28/2024 ALLER GY PROFI LE, FOOD F163-QwB shrimp 8.96 kU/L class IV abnormal Not Available [facility] ([facility]) [address] [place], [address], 12/28/2024 15:11:28 12/27/19 25 12/28/2024 ALLER GY PROFI LE, FOOD P891-OtG milk <0.10 kU/L class 0 Not Available [facility] ([facility]) [address] [place], [address], 12/28/2024 15:11:28 12/27/19 25 12/28/2024 ALLER GY PROFI LE, FOOD L292-CnN egg white <0.10 kU/L class 0 Not Available [facility] ([facility]) [address] [place], [address], 12/28/2024 15:11:28 12/27/19 25 12/28/2024 ALLER GY PROFI LE, FOOD N791-WfE sesame seed <0.10 kU/L class 0 Not Available [facility] ([facility]) [address] [place], [address], 12/28/2024 15:11:28 12/27/19 25 12/28/2024 ALLER GY PROFI LE, FOOD U317-CkW peanut <0.10 kU/L class 0 Not Available [facility] ([facility]) [address] [place], [address], 12/28/2024 15:11:28 12/27/19 25 12/28/2024 ALLER GY PROFI LE, FOOD Y984-KqR hazelnut (filbert) <0.10 kU/L class 0 Not Available [facility] ([facility]) [address] [place], [address], 12/28/2024 15:11:28 12/27/19 25 12/28/2024 ALLER GY PROFI LE, FOOD C715-XlE walnut <0.10 kU/L class 0 Not Available [facility] ([facility]) [address] [place], [address], 12/28/2024 15:11:28 12/27/19 25 12/28/2024 ALLER GY PROFI LE, FOOD R798-VaK cashew nut <0.10 kU/L class 0 Not Available [facility] ([facility]) [address] [place], [address], 12/28/2024 15:11:28 12/27/19 25 12/28/2024 ALLER GY PROFI LE, FOOD W866-BoV brazil nut <0.10 kU/L class 0 Not Available [facility] ([facility]) [address] [place], [address], 12/28/2024 15:11:28 12/27/19 25 12/28/2024 ALLER GY PROFI LE, FOOD H899-NrF tri A 19(W-5 gliadin) <0.10 kU/L class 0 Not Available [facility] ([facility]) [address] [facility] [address], [place], [address], 12/28/2024 15:11:28 12/27/19 25 12/28/2024 ALLER GY PROFI LE, FOOD Y229-KdM wheat <0.10 kU/L class 0 Not Available [facility] ([facility]) [address] [facility] [address], [place], [address], 12/28/2024 15:11:28 12/27/19 25 12/28/2024 ALLER GY PROFI LE, FOOD reflex SOLAR MECHANICAL ENGINEER Not Available [facility] ([facility]) [address] [facility] [address], [place], [address], 12/28/2024 15:11:28 12/27/19 25 12/28/2024 HASEEB, IFA [...] ). Not Available [facility] ([facility]) [address] [facility] [address], [place], [address], 12/28/2024 15:11:29 12/27/19 25 12/28/2024 ALLER GENS W/TOT AL IGE AREA 5 immunoglobul in E, total 302 IU/mL 6-495 Not Available [facility] ([facility]) [address] [facility] [address], [place], [address], 12/28/2024 15:11:30 12/27/19 25 12/28/2024 ALLER GENS W/TOT AL IGE AREA 5 L898-BfO D pteronyssinu s 0.86 kU/L class II abnormal Not Available [facility] ([facility]) [address] [place], [address], 12/28/2024 15:11:30 12/27/19 25 12/28/2024 ALLER GENS W/TOT AL IGE AREA 5 X749-AbT D farinae 1.00 kU/L class II abnormal Not Available [facility] ([facility]) [address] [place], [address], 12/28/2024 15:11:30 12/27/19 25 12/28/2024 ALLER GENS W/TOT AL IGE AREA 5 E613-YvX CAT dander 0.13 kU/L class 0/I abnormal Not Available [facility] ([facility]) [address] [place], [address], 12/28/2024 15:11:30 12/27/19 25 12/28/2024 ALLER GENS W/TOT AL IGE AREA 5 P294-TuN dog dander <0.10 kU/L class 0 Not Available [facility] ([facility]) [address] [place], [address], 12/28/2024 15:11:30 12/27/19 25 12/28/2024 ALLER GENS W/TOT AL IGE AREA 5 J051-ObT mouse urine <0.10 kU/L class 0 Not Available [facility] ([facility]) [address] [place], [address], 12/28/2024 15:11:30 12/27/19 25 12/28/2024 ALLER GENS W/TOT AL IGE AREA 5 k091-BrH bermuda grass <0.10 kU/L class 0 Not Available [facility] ([place] [email or web address]) [address] [place], [address], 12/28/2024 15:11:30 12/27/19 25 12/28/2024 ALLER GENS W/TOT AL IGE AREA 5 y335-MgS van grass <0.10 kU/L class 0 Not Available [facility] ([facility]) [address] [place], [address], 12/28/2024 15:11:30 12/27/19 25 12/28/2024 ALLER GENS W/TOT AL IGE AREA 5 C998-HiP cockroach, lebanese 9.01 kU/L class IV abnormal Not Available [facility] ([facility]) [address] [place], [address], 12/28/2024 15:11:30 12/27/19 25 12/28/2024 ALLER GENS W/TOT AL IGE AREA 5 U109-EiA penicillium chrysogen <0.10 kU/L class 0 Not Available [facility] ([facility]) [address] [place], [address], 12/28/2024 15:11:30 12/27/19 25 12/28/2024 ALLER GENS W/TOT AL IGE AREA 5 S353-MvV cladosporium herbarum <0.10 kU/L class 0 Not Available [facility] ([facility]) [address] [place], [address], 12/28/2024 15:11:30 12/27/19 25 12/28/2024 ALLER GENS W/TOT AL IGE AREA 5 C576-MzM aspergillus fumigatus <0.10 kU/L class 0 Not Available [facility] ([facility]) [address] [place], [address], 12/28/2024 15:11:30 12/27/19 25 12/28/2024 ALLER GENS W/TOT AL IGE AREA 5 J700-HjF alternaria alternata <0.10 kU/L class 0 Not Available [facility] ([facility]) [address] [place], [address], 12/28/2024 15:11:30 12/27/19 25 12/28/2024 ALLER GENS W/TOT AL IGE AREA 5 P109-IlS maple/box elder <0.10 kU/L class 0 Not Available [facility] ([facility]) [address] [facility], [place], [address], 12/28/2024 15:11:30 12/27/19 25 12/28/2024 ALLER GENS W/TOT AL IGE AREA 5 F355-WlD common silver birch <0.10 kU/L class 0 Not Available [facility] ([facility]) [address] [place], [address], 12/28/2024 15:11:30 12/27/19 25 12/28/2024 ALLER GENS W/TOT AL IGE AREA 5 V240-NiC cedar, mountain <0.10 kU/L class 0 Not Available [facility] ([facility]) [address] [facility], [place], [address], 12/28/2024 15:11:30 12/27/19 25 12/28/2024 ALLER GENS W/TOT AL IGE AREA 5 B763-NyL oak, white <0.10 kU/L class 0 Not Available [facility] ([facility]) [address] [place], [address], 12/28/2024 15:11:30 12/27/19 25 12/28/2024 ALLER GENS W/TOT AL IGE AREA 5 L806-AzT elm, north korean <0.10 kU/L class 0 Not Available [facility] ([facility]) [address] [place], [address], 12/28/2024 15:11:30 12/27/19 25 12/28/2024 ALLER GENS W/TOT AL IGE AREA 5 K393-OlE walnut <0.10 kU/L class 0 Not Available [facility] ([place] [facility]) [address] [place], [address], 12/28/2024 15:11:30 12/27/19 25 12/28/2024 ALLER GENS W/TOT AL IGE AREA 5 P366-RfA maple leaf sycamore <0.10 kU/L class 0 Not Available [facility] ([place] [facility]) [address], [place], [address], 12/28/2024 15:11:30 12/27/19 25 12/28/2024 ALLER GENS W/TOT AL IGE AREA 5 X872-JvS cottonwood <0.10 kU/L class 0 Not Available [facility] ([place] [email or web address]) [address], [place], [address], 12/28/2024 15:11:30 12/27/19 25 12/28/2024 ALLER GENS W/TOT AL IGE AREA 5 M116-MqR sonia, white <0.10 kU/L class 0 Not Available [facility] ([place] [facility]) [address], [place], [address], 12/28/2024 15:11:30 12/27/19 25 12/28/2024 ALLER GENS W/TOT AL IGE AREA 5 I896-PwB pecan, hickory <0.10 kU/L class 0 Not Available [facility] ([place] [email or web address]) [address], [place], [address], 12/28/2024 15:11:30 12/27/19 25 12/28/2024 ALLER GENS W/TOT AL IGE AREA 5 W125-UeB white mulberry <0.10 kU/L class 0 Not Available [facility] ([place] [facility]) [address], [place], [address], 12/28/2024 15:11:30 12/27/19 25 12/28/2024 ALLER GENS W/TOT AL IGE AREA 5 E069-EkM ragweed, short <0.10 kU/L class 0 Not Available [facility] ([facility]) [address] [facility], [place], [address], 12/28/2024 15:11:30 12/27/19 25 12/28/2024 ALLER GENS W/TOT AL IGE AREA 5 F340-RxR thistle, cambodian <0.10 kU/L class 0 Not Available [facility] ([facility]) [address] [facility], [place], [address], 12/28/2024 15:11:30 12/27/19 25 12/28/2024 ALLER GENS W/TOT AL IGE AREA 5 S936-EvX pigweed, common <0.10 kU/L class 0 Not Available [facility] ([facility]) [address] [facility], [place], [address], 12/28/2024 15:11:30 12/27/19 25 12/28/2024 ALLER GENS W/TOT AL IGE AREA 5 K124-SwG sheep sorrel <0.10 kU/L class 0 Not Available [facility] ([facility]) [address] [facility] [address], [place], [address], 12/28/2024 15:11:30 12/27/19 25 12/27/2024 SEDIM ENTAT ION RATE- WESTE RGREN sedimentatio n rate-westerg daniela 17 mm/HR 0-32 normal Not Available [facility] ([facility]) [address] [facility] [address], [place], [address], 12/28/2024 15:11:31 12/27/19 25 12/27/2024 C-STACIE CTIVE PROTE IN, QUANT C-reactive protein, quant 5 mg/L 0-10 normal Not Available [facility] ([facility]) [address] [place], [address], 12/28/2024 15:11:31 Result Notes None recorded. Problems Name Problem SNOMED Code Status Onset Date Resolution Date Notes Provider Name and Address Organization Details Recorded Time Allergy to food 244989159 Active Kaitlin coy [facility] [place] 16:14:28 Problem Notes None recorded. Procedures Surgical History Date Name Laterality Status Provider Name and Address Organization Details Recorded Time endoscopic balloon dilation of ostium of paranasal sinus completed Pretty Guzman [facility] [place] 12/26/2024 11:18:52 Imaging Results None recorded. Procedure Notes None recorded. Medical Equipment None Reported. Allergies Allergen ID Allergen Name Allergen Category Reaction Reaction Severity Criticality Documentation Date Start Date Code Code System Note Provider Name and Address Organization Details Recorded Time 794497 shellfish derived food,medi cation Not available Not available Not available 12/28/2024 83530 [facility] Lee Ann coy [facility] [place] 16:11:37 403607 house dust mite environme nt Not available Not available Not available 12/28/2024 25304 [facility] Lee Ann coy [facility] [place] 16:11:48 287738 cat dander environme nt Not available Not available Not available 12/28/2024 82415 [facility] Lee Ann coy [facility] [place] 16:12:13 138260 cockroach environme nt Not available Not available Not available 12/28/2024 64665 9 [facility] Lee Ann coy [facility] [place] 16:12:21 298363 scallop allergeni c extract food Not available Not available Not available 12/28/2024 42047 6 Rx[facility] Lee Ann coy [facility] [place] 5 16:12:30 Medications Name Sig Start Date [...] Last Updated DateTime 175.26 cm 30.3 kg/m2 16559.1 4 g 98.8 [degF] 98 % 98 % 16 /min 126 /min 118/62 mm[Hg] Pretty Thomas [facility] 11:21:06 Social History Question Answer Notes LastModified by Healios K.K Details LastModified Time Tobacco Smoking Status Never Smoker [facility] [place] 12/26/2024 11:14:34 Do You Have An Advance Directive? No [email or web address] Information not available 12/26/2024 Are You Blind Or Do You Have Difficulty Seeing? No [email or web address] Information not available 12/26/2024 What Is Your Level Of Caffeine Consumption? Moderate [email or web address] Information not available 12/26/2024 What Type Of Diet Are You Following? REGULAR [email or web address] Information not available 12/26/2024 Are You Passively Exposed To Smoke? No [email or web address] Information not available 12/26/2024 Sex: Female Functional Status Question Answer Note LastModified by Healios K.K Details LastModified Time Do you use any illicit or recreational drugs? No [email or web address] Information not available 12/26/2024 Do you or have you ever used any other forms of tobacco or nicotine? No Information not available 12/26/2024 What is your level of alcohol consumption? Occasional [email or web address] Information not available 12/26/2024 Do you or have you ever used smokeless tobacco? Never used smokeless tobacco [email or web address] Information not available 12/26/2024 What is your exercise level? Occasional [email or web address] Information not available 12/26/2024 Mental Status Question Answer Note LastModified by Organization D etails LastModified Time Do you feel stressed (tense, restless, nervous, or anxious, or unable to sleep at night)? [id number] [email or web address] Information not available 12/26/2024 Family History Relationship Description Onset Age of this Age Resolved Age Notes LastModified by Organization Details LastModified Time Mother Multiple sclerosis [email or web address] Not available 08/2024 11:15:54 Sister [place] thyroiditis [email or web address] Not available 0 12/26/2024 11:16:18 Paternal Grandmother Diabetes mellitus [email or web address] Not available 08/2024 11:16:53 Maternal Grandfather Malignant tumor of stomach [email or web address] Not available 08/2024 11:17:32 Paternal Grandfather Neoplasm of brain [email or web address] Not available 08/2024 11:17:44 Medical History Condition Response Other Y Psychiatric/Mental Health Condition Y Gynecological History Statement/Question Response Abnormal Pap N Date of LMP 12/22/2024 Sexually Active? Y Obstetrics History GPAL:G 0 P 0 0 0 0 Past Encounters Encounter ID Performer Location Encounter Start Date Encounter Closed Date Diagnosis/Indication Diagnosis SNOMED-CT Code Diagnosis ICD10 Code Diagnosis Note [id number] MD [facility] [address] [place] [address] 12/26/2024 10:55:58 12/26/2024 12:26:59 History of angioedema 1568086117 108 Z87.898 As stated in HPI, patient presents today with concerns regarding multiple incidences of angioedema over the last 9 years with no real workup as to the cause. Laboratory assessment has been ordered, will await results to determine further treatment plan. Standardiz ed adult depression screening tool completed [id number] 35663 Z13.31 Negative PHQ-9. Health Concerns Section Related Observation LastModified by Organization Detai ls LastModified Time None Recorded Concern Status LastModified by Organization Details LastModified Time None Recorded Advance Directives Directive N: Payers Insurance Date Sequence Insurance Name Policy Number Policy Worthy Covered Member ID Worthy Member ID Guarantor Name 01/06/2025 1 *SELF PAY* Jenny Le 01/06/2025 1 [facility] ([facility]) [id number] Ghada Le [id number] Ghada Le Notes Date Note Type Note Provider Name and Address Organization Details Recorded Time 12/26/2024 text/html Patient is a 24-year-old female who presents today to [facility] care. Patient also presents today with concerns regarding [...] not had any further workup. SOLITARIO PASTRANA, EVENTS DIRECTOR [address], [place], [address], [facility] [place] 12/26/2024 14:00:49 OBGyn Episode No OBEpisode recorded.
--- OUTSIDE RECORDS SUMMARY | 2025-02-14 12:01 | XMS_ITS | Data Portability ---
Author Organization [place] - [facility], [place]_OHS[facility]_[address] [place] [address] Office Address [address] [address] Assessment No assessment recorded. Plan of Treatment Reminders Order Date Submit Date Provider Last Modified By Organization Details Last Modified Time Details Appointments None recorded. Lab glucose tolerance test, post-75G, 2-hour 2024 025 [email or web address] Not available 5 10:45:33 Referral None recorded. Procedures None recorded. Surgeries None recorded. Imaging non-stress test 2024 025 [email or web address] [facility] [place] [facility]*, [address] [place] [address], [address], [address], 5 12:54:22 non-stress test 2023 024 [email or web address] Tn_ohsol_[address] [place] [address] Office*, [address] [place] [address], [address], 4 09:05:53 Medication Orders None recorded. Patient TargetsNo targets recorded. Patient InstructionsNo instructions recorded. Reason for Referral None Reported. Results Created Date Observation Date Name Description Value Unit Range Abnormal Flag Note LastModifiedBy Organization Detail LastModifiedTime 07/14/20 24 07/14/2024 PRE[facility]CRECIA GROUP B STREP CULTU RE group B strep culture unspecifi ed MICRO BIOLO GY REPOR T [facility], [address] [facility], [place], [address] PATIE NT: GHADA SOLO 75 ACCOU NT#: [id number] LOCAT ION: OBS - - : 11/26 AGE: 23 SEX: F ADM: 07/14 Att. Physi dalia: CHERRY MAGANA Order Id: [id number] Req. Physi dalia: CHERRY MAGANA Sourc e: vagin al-an orect al Site: [facility] cted: 07/14 10:19 Curre nt Antib [...] false negat chano resul t. Not Available [facility] [address] [place] [address], [address], 07/16/2024 13:22:53 07/14/20 24 07/14/2024 PRE[facility] LUCREC[facility] B STREP CULTU RE performing lab: see note unspecifi ed [facility] - [facility] Labor atori es [address] [facility] Stree t [facility] [address] Nicholas Salcedo Not Available [facility] [address] [place] [address], [address], 07/16/2024 13:22:53 06/14/20 non-s tress test No observ ation record ed. LISA [facility] [place] [facility]* [address] [address], [place], [address], 06/16/2024 10:06:27 06/28/20 24 non-s tress test No observ ation record ed. LISA [facility] [place] [facility] [address] [facility] [address], [place], [address], 06/28/2024 22:33:37 06/29/20 24 non-s tress test No observ ation record ed. [email or web address] [facility] [place] [facility]* [address] [facility] [address], [place], [address], 06/29/2024 10:13:45 07/07/20 24 non-s tress test No observ ation record ed. [email or web address] [facility] [place] [facility]* [address] [facility] [address], [place], [address], 07/07/2024 11:41:38 07/14/20 24 non-s tress test No observ ation record ed. LISA [facility] [place] [facility]* [address] [facility] [address], [place], [address], 07/14/2024 12:34:30 07/14/20 24 07/14/2024 ultra sound image s RAD [email or web address] [facility] [employer] [id number] 07/14/2024 12:33:43 07/14/20 24 US, obste tric, 3rd trime ster No observ ation record ed. LISA [facility] [place] [facility]* [address] [facility] [address], [place], [address], 07/14/2024 12:34:35 07/18/20 24 non-s tress test No observ ation record ed. LISA [facility] [place] [facility]* [address] [facility] [address], [place], [address], 07/19/2024 09:05:51 07/28/19 25 non-s tress test No observ ation record ed. [email or web address] [facility] [place] [facility]* [address] [facility] [address], [place], [address], 07/28/2024 10:34:54 10/07/19 25 01/06/2024 US, obste [...] Recorded Time Anxiety disorder Active Tiff coy, [facility] 11:31:21 Gestatio nal diabetes mellitus 25150477 Completed NSTs at 32wks, serial growth scans Tiff coy, [facility] [place] [facility] 11:31:21 Anxiety disorder Completed Tiff coy, [facility] 11:31:21 High risk pregnanc y 10368896 Completed Tiff coy, [facility] 11:31:21 RhD negative 719800552 Completed Rhogam 05/17 Tiff coy, [facility] 5 11:31:21 Glucose level outside referenc e range 365767969 Completed DM educatio n with MW Tiff coy, [facility] [place] [facility] 5 11:31:21 Maternal obesity complica ting pregnanc y, childbir th and the puerperi um, antepart um 04849440373 7 Completed Early 1hr GTT- US at 36wks Tiff coy, [facility] [place] [facility] 5 11:31:21 Problem Notes None recorded. Procedures Surgical History Date Name Laterality Status Provider Name and Address Organization Details Recorded Time 5 Chaperoned Pelvic Examination completed Tiff [facility] 09/07/2024 11:23:59 Date of Last Pap Smear completed Misa [facility] 06/14/2024 13:56:33 endoscopic balloon dilation of ostium of paranasal sinus completed Norma [facility] 05/04/2024 11:14:16 Imaging Results None [...] 10:57AM User: [email or web address] Wu on: 02/15/20 Pharm acSravanthi ied: 01/06/20 10:58AM Prescrip tion Date: 01/06/20 10:57:59 Clinica l Medicati on Id: [id number] U nique Medicati on Id: [id number] P rescribe d: Practice Prescrib ed Medicati [...] 1 tablet twice a day by translin cary route. 09/07 completed Not Available Not Available [...] Prescrib ed on: 03/22/20 8:54AM U ser: [employer] cy[employer]ifi ed: 03/22/20 24 8:55AM P rescript ion Date: 03/22/20 08:54:46 Clinica l Medicati on Id: [id number] U nilucinda Medicati on Id: [id number] P rescribe d: Practice Prescrib ed Medicati [...] Recorded on: 01/06/20 24 10:21AM User: [email or web address] Bianchi on: 01/01/20 25 Indic ation: pregnanc y - (18.V222 00) Clin ical Medicati on Id: [id number] U nique Medicati on Id: [id number] P rescribe d: Practice Prescrib ed Medicati [...] Available Vitals Date Recorded Body weight Systolic And Diastolic Provider Name and Address Organization Details Last Updated DateTime 07/28/2024 429004.67302 g 120/72 mm[Hg] Not Available [facility] Record 07/28/2024 10:34:40 Date Recorded Body height Body mass index (BMI) Body weight Systolic And Diastolic Provider Name and Address Organization Details Last Updated DateTime 09/07/2024 173.87459 6 cm 31.2 kg/m2 11051.649 908 g 116/86 mm[Hg] Tiff [facility] 09/07/2024 11:26:48 Date Recorded Body height Provider Name an d Address Organization Details Last Updated DateTime 07/14/2024 173.517206 cm Tiff [facility] 07/14/2024 10:18:25 Date Recorded Body weight Systolic And Diastolic Provider Name and Address Organization Details Last Updated DateTime 07/14/2024 475342.64644 g 101/76 mm[Hg] Not Available [facility] Record 07/14/2024 10:30:38 Date Recorded Body height Body mass index (BMI) Systolic And Diastolic Provider Name and Address Organization Details Last Updated DateTime 07/18/2024 173.179841 cm 35.2 kg/m2 112/79 mm[Hg] Lety [facility] 07/18/2024 14:13:32 Date Recorded Body weight Provider Name an d Address Organization Details Last Updated DateTime 07/18/2024 015592.14072 g Not Available [facility] Record 07/18/2024 14:19:45 Social History Question Answer Notes LastModified by Organizat ion Details LastModified Time Tobacco Smoking Status Never Smoker Norma coy [facility] 05/04/2024 11:11:31 What Is The Highest Grade Or Level Of School You Have Completed Or The Highest Degree You Have Received? LM52077-7 [email or web address] Information not available 05/04/2024 What Was The Date Of Your Most Recent Tobacco Screening? 05/04/2024 [email or web address] Information not available 05/04/2024 What Is Your Relationship Status? [email or web address] Information not available 05/04/2024 Do You Use Your Seat Belt Or Car Seat Routinely? Yes [email or web address] Information not available 05/04/2024 Are You Sexually Active? Yes [email or web address] Information not available 07/14/2024 Has Tobacco Cessation Counseling Been Provided? No [email or web address] Information not available 07/14/2024 Are You Currently In School? No [email or web address] Information not available 07/14/2024 Sex: Unknown Functional Status Question Answer Note LastModified by Organizat ion Details LastModified Time Do you use any illicit or recreational drugs? No [email or web address] Information not available 07/14/2024 Do you or have you ever used any other forms of tobacco or nicotine? No [email or web address] Information not available 07/14/2024 Are you currently employed? Yes Information not available 07/14/2024 Mental Status None recorded. Family History Relationship Description Onset Age of this Age Resolved Age Notes LastModified by Organization Details LastModified Time Maternal Grandmother Diabetes mellitus [email or web address] Not available 03/2024 11:07:20 Father Hypercholest erolemia [email or web address] Not available 03/2024 11:07:56 Sister Disorder of thyroid gland [email or web address] Not available 03/2024 11:08:25 Medical History Condition Response Other N Colon Cancer N Vulvar Cancer N Fibroids/Leiomyoma N Depression N Gestational Diabetes N Osteoporosis/Osteopenia N Celiac Disease N Pre-eclampsia N Uterine Cancer N Headaches/Migraines N Anxiety Disorder Y Infertility N Cervical Cancer N Hypothyroidism (under active) N No significant past medical history N Varicosities N Past Medical History as per Problem List Y Hospitalization(s) N Urologic Disorder N Endometriosis N Thrombophilias N Hematologic Disease N Gynecological History [...] SNOMED-CT Code Diagnosis ICD10 Code Diagnosis Note [id number] Cehrry Caro MD [place] [place] [facility]* [address] [place] [address],[address] [place] [address] 05/18/2024 13:02:51 05/18/2024 14:08:44 Maternal obesity complicating , childbirth and the puerperium, antepartum 0326297225 07 O99.213 Early 1hr GTT- US at 36wks Gestationa l diabetes mellitus 21554662 O24.410 NSTs at 32wks, serial growth scans High risk 4720 0007 O09.93 Gestation period, 28 weeks 16268255 Z3A.28 [id number] Eileen Bradley CNP [place] [address] [place] [facility] [address] [place] [address],[address] [place] [address] 05/18/2024 13:39:06 05/18/2024 14:21:58 Gestational diabetes mellitus 60755648 O24.228 [id number] Eileen Bradley CNP [place] [address] [place] [facility] [address] [place] [address],[address] [place] [address] 06/01/2024 09:17:02 06/01/2024 10:37:40 Gestational diabetes mellitus 53180910 O24.410 High risk 4720 0007 O09.93 Gestation period, 30 weeks 03319677 Z3A.30 [id number] Cherry Caro MD [place] [place] [facility]* [address] [place] [address],[address] [place] [address] 06/16/2024 09:08:44 06/16/2024 10:19:29 High risk 67107477 O09.93 Gestationa l diabetes mellitus 71448844 O24.410 NSTs at 32wks, serial growth scans Maternal o besity complicating , childbirth and the puerperium, antepartum 5365804349 07 O99.213 Early 1hr GTT- US at 36wks Gestation period, 32 weeks 0609943 Z3A.32 [id number] Eileen Bradley CNP [place] [address] [place] [facility] [address] [place] [address],[address] [place] [address] 06/22/2024 10:08:38 06/22/2024 12:25:08 High risk 72765107 O09.93 Gestation period, 33 weeks 92334457 Z3A.33 Gestationa l diabetes mellitus 81484580 O24.917 [id number] Cherry Caro MD [place] [place] [facility]* [address] [place] [address] 06/29/2024 09:55:44 06/29/2024 11:28:39 Gestational diabetes mellitus complicating 1549837316 9106 O24.419 High risk 4720 0007 O09.93 Anxiety disorder 9086651 06 O99.343 Gestationa l diabetes mellitus 51716118 O24.410 NSTs at 32wks, serial growth scans Maternal o besity complicating , childbirth and the puerperium, antepartum 4714041484 07 O99.213 Early 1hr GTT- US at 36wks Gestation period, 34 weeks 54742821 Z3A.34 [id number] Cherry Caro MD [place] [place] [facility]* [address] [place] [address] 07/07/2024 10:06:01 07/07/2024 11:41:23 screening 067058833 Z36.85 High risk 4720 0007 O09.93 Anxiety disorder 6295278 06 O99.343 Gestationa l diabetes mellitus 94712908 O24.410 NSTs at 32wks, serial growth scans Gestation period, 35 weeks 51570085 Z3A.35 [id number] Eileen Bradley CNP [place] [place] [facility]* [address] [place] [address] 07/07/2024 10:06:01 07/07/2024 11:41:23 Gestational diabetes mellitus 88548321 O24.410 Gestation period, 35 weeks 40754422 Z3A.35 [id number] Eileen Bradley CNP [place] [place] [facility]* [address] [place] [address] 07/14/2024 10:08:12 07/14/2024 12:41:01 Gestation period, 36 weeks 38145571 Z3A.36 Gestationa l diabetes mellitus 82900962 O24.479 [id number] Cherry Caro MD [place] [place] [facility]* [address] [place] [address] 07/14/2024 10:08:12 07/14/2024 12:41:01 screening 220119880 Z36.85 Gestationa l diabetes mellitus 51151982 O24.410 NSTs at 32wks, serial growth scans Gestation period, 36 weeks 54482005 Z3A.36 High risk 4720 0007 O09.93 Anxiety disorder 2086893 06 O99.343 Maternal o besity complicating , childbirth and the puerperium, antepartum 9760428875 07 O99.213 Early 1hr GTT- US at 36wks [id number] MD JONG Mckeon_OHSOL_ [address] [place] [address] Office* [address] [place] [address] 07/18/2024 13:25:35 07/18/2024 14:57:56 High risk 34027462 O09.93 Anxiety disorder 06 O99.343 Gestationa l diabetes mellitus 69051978 O24.410 Maternal o besity complicating , childbirth and the puerperium, antepartum 1539489749 07 O99.213 Early 1hr GTT- US at 36wks Gestation period, 37 weeks 07827986 Z3A.37 [id number] Eileen Bradley CNP [place] [place] [facility]* [address] [place] [address] 07/28/2024 09:59:19 07/28/2024 11:47:00 Gestational diabetes mellitus 50843744 O24.410 Gestation period, 38 weeks 30347460 Z3A.38 [id number] Cherry Caro MD [place] [address] [place] [address] Office* [address] [place] [address] 07/28/2024 09:59:19 07/28/2024 11:47:00 Gestational diabetes mellitus 37676488 O24.410 High risk 4720 0007 O09.93 Anxiety disorder 0825958 06 O99.343 Maternal o besity complicating , childbirth and the puerperium, antepartum 0085203800 07 O99.213 Early 1hr GTT- US at 36wks Gestation period, 38 weeks 70079291 Z3A.38 [id number] Cherry Caro MD [place] [place] [facility]* [address] [facility], [address] [place] [address] 09/07/2024 11:13:54 09/07/2024 11:48:55 state 04110661 Z39.2 Declined contracept ionNo s/sx of PP depression gestational diabetes mellitus 7891093658 9105 O24.439 Health Concerns Section Related Observation LastModified by Organization Detai ls LastModified Time None Recorded Concern Status LastModified by Organization Details LastModified Time None Recorded Advance Directives Directive None Recorded Payers Insurance Date Sequence Insurance Name Policy Number Policy Worthy Covered Member ID Worthy Member ID Guarantor Name 09/04/2024 1 [facility] [id number] Aureliano De Guzmans [id number] Ghada Le Notes Date Note Type Note [...] fasting and PP WNL.continue monitoring.f/u 1wk Eileen WarcamerontabathaFAN [address] [place], [address], [facility] 07/14/2024 12:41:41 5 text/html This is a [...] 1hr after eating.Pt induction scheduled 07/31/24. Eileen FAN Bradley [address] [place], [address], [facility] 07/28/2024 11:07:41 5 text/html This is a [...] gestational diabetes with this . Maternal information8- [place] ScoreNo - any problems with post depressionBreast [...] about resuming sexual activity Cherry Caro MD [address] [place], [address], [place] [facility] 09/07/2024 11:47:05 OBGyn Episode Ob Episode Information Episode Created Date Number of Fetuses Patient Bloodtype Patient rh Status Prepregnancy Weight lbs Domestic Partner Domestic Partner Phone Father Name Draw String Knotter Status 05/04/20 24 1 A Negative 213 Gerbre CLOSED Fetus Data First Name Last Name Admitted to NICU Weight (g) Sex Living Outcome Pediatric Complications Fetus ID Race Codes Race Delivery Type 3458.63 9 M true Full Term [id number] Vaginal Problems Problem Notes Problem Name Start Date End Date Resolution Snomed Code Not e Gestational diabetes mellitus 66019458 NSTs at 32wks, serial growth scans Anxiety disorder 182713394 High risk 87799672 RhD negative 813717912 Rhogam 05/17 Glucose level outside reference range 449813278 DM education with MW Maternal obesity complicating , childbirth and the puerperium, antepartum 229669271403 Early 1hr GTT- US at 36wks Ash [...] Type Weight in lbs Pre/Post Dialysis Refused 219.851651322248 BP Diastolic BP Location Tested BP Systolic BP Type 62 110 Fetus Heart Rate Present Fetus Movement A Yes Comments States she got her HGB and R IN drawn today and Rhogam drawn yesterday. Has [...] Type Weight in lbs Pre/Post Dialysis Refused 224.626553257761 BP Diastolic BP Location Tested BP Systolic BP Type 77 109 Fetus Heart Rate Present Fetus Movement Comments denies any problems. FBS not taken this morning. Tdap/FMS/RSV information given. NST today. CLCNST-R. NST at 32wks and then weekly. GDM diet controlled. to see [facility] for apt and glucose log review in 2wks. send in glucose log next wk.mw Flowsheet Date 06/16/2024 Rodrigez Score Blood Edema Fundus Height Fundus Units Glucose Ketones Leukocytes Nitrite Labor Signs Protein Cervic Dilation Cervic Effacement Cervic Station none none Negative neg Type Weight in lbs Pre/Post Dialysis Refused 227.553874566984 BP Diastolic BP Location Tested BP Systolic [...] Type Weight in lbs Pre/Post Dialysis Refused 225.076798738965 BP Diastolic BP Location Tested BP Systolic [...] Type Weight in lbs Pre/Post Dialysis Refused 230.437809916188 BP Diastolic BP Location Tested BP Systolic [...] Type Weight in lbs Pre/Post Dialysis Refused 229.856153164277 BP Diastolic BP Location Tested BP Systolic [...] Type Weight in lbs Pre/Post Dialysis Refused 234.201402226932 BP Diastolic BP Location Tested BP Systolic [...] Weight in lbs Pre/Post Dialysis Refused Weight 235.525659083689 BP Diastolic BP Location Tested BP Systolic [...] Type Weight in lbs Pre/Post Dialysis Refused 235.818586369685 BP Diastolic BP Location Tested BP Systolic BP Type 72 120 Fetus Heart Rate Present A Present Fetus Movement A Yes Comments NST, No FBS. No C/o. KGRNST. IOL on Thursday. Flowsheet Date 09/07/2024 Rodrigez Score Blood Edema Fundus Height Fundus Units Glucose Ketones Leukocytes Nitrite Labor Signs Protein Cervic Dilation Cervic Effacement Cervic Station Type Weight in lbs Pre/Post Dialysis Refused Weight 208.14960783116 BP Diastolic BP Location Tested BP Systolic BP Type 86 116 Fetus Heart Rate Present Fetus Movement Comments Menstrual History Last Menstrual Date Menses Monthly On Bcp Conception Prior Menses Frequency Hcg Plus Date Menarche Onset Age 0410/27/2023 Delivery Information Delivery Date Delivery Type Labor Anesthesia Weeks Gestation Incision Type Labor Labor Length Hrs Delivered By Post Complications Tubal Sterilization Discharge Date Comments 5 Induce d [facility] 39.1 false 9 Cherry Caro MD 08/02/2024 Discharge Information Feeding Method Contraceptive Method Maternal HG B and HCT Levels
== END 2025-02-14 23:59 | disposition home or self-care (01) ==
LOC: LAB 11:59
PROVIDERS: Visit Provider Nurse Practitioner Obstetrics & Gynecology
DX: Z34.90 Encounter for supervision of normal pregnancy, unspecified, unspecified trimester (principal)
CPT/HCPCS: 36415; 84144; 84702

== ENCOUNTER 2025-02-21 14:35 | Outpatient (CLI) | payer BC, SELFPAY ==
--- OUTSIDE RECORDS SUMMARY | 2025-02-22 12:16 | XMS_ITS | Clinical Summary ---
Author Organization [facility] Address [address], [address] [place] [address] Care Team Providers Care Service Cashier Name Role Phone Unavailable Primary Care Provider [...] EDT - 11/24/2024 8:39 AM EDT Emergency [facility] Emergency Department [address] [place] [address] Angioedema, initial encounter (Primary Dx) Discharge Disposition: [...] drink = 0.6 oz pur e alcohol) [facility] Utilities Answer Date Recorded In the past 12 months has th e [employer], gas, oil, or water [employer] threatened to shut off services in your [...] things needed for daily living? No 07/31/2024 [place] Depression Scale Answer Date Recorded [place] Depression Scale Total 5 08/02/2024 The thought [...] any time in the past 12 m [facility], were you homeless or living in a long term (including now)? No 07/31/2024 Food Insecurity Answer [...] 119 >=41 % 11/29 1:09 AM EDT [facility] Comment: The concentration of functional C1 esterase inhibitor (C1-INH) is reported as the percentage of the mean level in normal specimens. Concentrations greater than or equal to 68 percent mean normal are considered normal. INTERPRETIVE INFORMATION: V-3-Kdwxldqv Inhib. Functional 68% or greater ........ Normal 41% - 67% ............. Indeterminate 40% or less ........... Abnormal C1 Esterase Inhibitor 36 21 - 38 mg/dL 11/29/2024 1:09 AM EDT [facility] Complement Component 4 33 10 - 40 mg/dL 11/29/2024 1:09 AM EDT [facility] Comment: REFERENCE INTERVAL: Complement Component 4 Access complete set of age- and/or gender-specific reference intervals for this test in the [facility] Test Directory ([email or web address]). Performed By: [facility] [address] [place] [address] [employer] Tester: Oral Rogers MD, PhD CLIA Number: [id number] Blood BLOOD SPECIMEN / Unknown 11/24/2024 7:33 AM EDT 11/24/2024 7:45 AM EDT us Chris VASQUEZ CHEMISTRY ORDERABLES Final Re sult Performing Organization Address [facility]/ZIP Co de Phone Number [facility] [address] [place] [address], [facility] [phone] [facility] [address] [place], [place] [id number] [place] [address] * Anion Gap (11/24/2024 6:36 AM EDT) Anion Gap 13.0 8.0 - 16.0 meq/L 11/24/2024 7:28 AM EDT [facility] Comment: ANION GAP = Sodium -(Chloride + CO2) Performed at [facility] [address] [place] [address] 11/24/2024 6:36 AM EDT 11/24/2024 6:46 AM EDT us Chris VASQUEZ CHEMISTRY ORDERABLES Final Re sult Performing Organization Address [facility] Co de Phone Number [facility] [address] [place] [address], [facility] [phone] [facility] [address] [place] [address], [facility] [phone] * Glomerular Filtration Rate, Estimated (11/24/2024 6:36 AM EDT) Est, Glom Filt Rate > 90 >60 ml/min/1.7 3m2 11/24/2024 7:31 AM EDT [facility] Comment: Pediatric calculator link https://www.kidney.org/professionals/kdoqi/gfr_calculatorped [...] that affects renal tubular secretion. Performed at [facility] [address] [place] [address] 11/24/2024 6:36 AM EDT 11/24/2024 6:36 AM EDT us Chris VASQUEZ CHEMISTRY ORDERABLES Final Re sult [facility] [address] [place] [address], [facility] [phone] [facility] [address] [place] [address], [facility] [phone] * CBC with Auto Differential (11/24/2024 6:36 AM EDT) WBC 10.1 4.8 - 10.8 thou/mm3 11/24/2024 7:01 AM EDT [facility] RBC 5.29 4.20 - 5.40 mill/mm3 11/24/2024 7:01 AM [facility] Hemoglobin 15.3 12.0 - 16.0 gm/dl 11/24/2024 7:01 AM T [facility] Hematocrit 45.1 37.0 - 47.0 % 11/24/2024 7:01 AM [facility] MCV 85.3 81.0 - 99.0 fL 11/24/2024 7:01 AM EDT [facility] MCH 28.9 26.0 - 33.0 pg 11/24/2024 7:01 AM EDT [facility] MCHC 33.9 32.2 - 35.5 [...] - 0.4 thou/mm3 11/24/2024 7:01 AM EDT [facility] Basophils Absolute 0.1 0.0 - 0.1 thou/mm3 11/24/2024 7:01 AM EDT [facility] Immature Grans (Abs) 0.05 0.00 - 0.07 thou/mm3 11/24/2024 7:01 AM EDT [facility] nRBC 0 /100 wbc 11/24/2024 7:01 AM EDT [facility] Comment:Performed at [facility] [address] [place] [address] Blood BLOOD SPECIMEN / Unknown 11/24/2024 6:36 AM EDT 11/24/2024 6:46 AM EDT us Chris VASQUEZ HEMATOLOGY ORDERABLES Final R esult Performing Organization Address City/[facility]/ZIP Co de Phone Number [facility] [address] [place] [address] [facility] [address] [place] [address] * (ABNORMAL) C-Reactive Protein (11/24/2024 6:36 AM EDT) CRP 0.58(H) 0.00 - 0.50 mg/dl 11/24/2024 9:13 AM EDT [facility] Comment:Performed at [facility] [address] [place] [address] Blood BLOOD SPECIMEN / Unknown 11/24/2024 6:36 AM EDT 11/24/2024 6:46 AM EDT us Chris VASQUEZ CHEMISTRY ORDERABLES Final Re sult Performing Organization Address City/[facility]/ZIP Co de Phone Number [facility] [address] [place], [place] [id number], [facility] [phone] [facility] [address] [place] [address], [facility] [phone] * HCG Qualitative, Serum (11/24/2024 6:36 AM EDT) Preg, Serum NEGATIVE NEGATIVE 11/24/2024 7:01 AM EDT [facility] Comment:Performed at [facility] [address] [place] [address] Blood BLOOD SPECIMEN / Unknown 11/24/2024 6:36 AM EDT 11/24/2024 6:46 AM EDT us Chris VASQUEZ CHEMISTRY ORDERABLES Final Re sult [facility] [address] [place] [address], [facility] [phone] [facility] [address] [place] [address], [facility] [phone] * Osmolality (11/24/2024 6:36 AM EDT) Osmolality Calc 276.2 275.0 - 300.0 mOsmol/kg 11/24/2024 7:28 AM EDT [facility] Comment:Performed at [facility] [address] [place] [address] 11/24/2024 6:36 AM EDT 11/24/2024 6:46 AM EDT us Chris VASQUEZ CHEMISTRY ORDERABLES Final Re sult [facility] [address] [place] [address], [facility] [phone] [facility] [address] [place] [address], [facility] [phone] * Basic Metabolic Panel (11/24/2024 6:36 AM EDT) Sodium 139 135 - 145 meq/L 11/24/2024 7:17 AM EDT [facility] Potassium 3.9 3.5 - 5.2 meq/L 11/24/2024 7:17 AM EDT [facility] Comment: Low level specimen hemolysis is present as indicated by the interference index on the Lyly analyzer. The reported K+ level may be falsely increased. If clinically warranted, recollection of the specimen is suggested. Chloride 101 98 - 111 meq/L 11/24/2024 7:17 AM EDT [facility] CO2 25 22 - 29 meq/L 11/24/2024 7:28 AM EDT [facility] Glucose 91 74 - 109 mg/dL 11/24/2024 7:28 AM EDT [facility] BUN 10 8 - 23 mg/dL 11/24/2024 7:28 AM EDT [facility] Creatinine 0.7 0.5 - 0.9 mg/dL 11/24/2024 7:28 AM EDT [facility] Calcium 9.7 8.6 - 10.0 mg/dL 11/24/2024 7:28 AM EDT [facility] Comment:Performed at [facility] [address] [place] [address] Blood BLOOD SPECIMEN / Unknown 11/24/2024 6:36 AM EDT 11/24/2024 6:46 AM EDT us Chris VASQUEZ CHEMISTRY ORDERABLES Final Re sult [facility] [address] [place] [address], [facility] [phone] [facility] [address] [place] [address], [facility] [phone] * C.trachomatis N.gonorrhoeae DNA, Thin Prep (01/06/2024 12:00 PM EDT) C. trachomatis DNA,Thin Prep NEGATIVE NEG 01/11/2024 1:21 PM EDT [facility] [employer] Comment: CHLAMYDIA TRACHOMATIS DNA not detected by [...] Prep NEGATIVE NEG 01/11/2024 1:21 PM EDT [facility] [employer] Comment: NEISSERIA GONORRHOEAE DNA not detected by [...] an alternative nucleic acid [place] [address] . Source Cervical 01/07/2024 1:08 PM EDT [facility] 01/06/2024 12:0 0 PM EDT 01/07/2024 1:09 PM EDT Cherry Caro MD MICROBIOLOGY - GENERAL ORDERABL ES Final Result [facility] [address] [place] [address], [facility] [phone] [address], [facility] [phone] * PAP SMEAR (01/06/2024 12:00 PM EDT) Cytology Thin Prep SEE BELOW 2023 9:06 AM EDT Answer.To Comment: Path Number: [id number] DIAGNOSIS Cervical-Endocervical material, (Thin prep vial, Imaging-assisted [...] of cervix STD exposure Z36.89 Processing Lab: [address] [phone] Interpretation performed at [address] [phone] This Pap Test has been evaluated with the assistance of the [employer] Pap Test Imaging System. The Pap smear is a screening test primarily for squamous epithelial lesions, which is subject to both false negative and false positive results. Your patient should be reminded to consult you immediately if she experiences any suspicious signs or symptoms, regardless of her Pap smear result. GYNECOLOGIC CYTOLOGY REPORT Patient Name: GHADA ARCHIBALD [facility] Rec: [id number] [facility] ANATOMIC PATHOLOGY [address] [place] [address]. [place] [phone] 01/06/2024 12:0 0 PM EDT 01/07/2024 1:09 PM EDT us Cherry Caro MD PATHOLOGY/CYTOLOGY ORDERABLES F inal Result [facility] [address] [place] [address], [facility] [phone] [email or web address] [phone] from Last 3 Months or Most Recently Relevant to Health Maintenance Insurance [employer] Advance Directives * Full Code (Latest Code Status on File) Date Activated Date Inactivated Comments 07/31/2024 5:12 PM 08/01/2024 8:18 PM
== END 2025-02-21 23:59 | disposition home or self-care (01) ==
LOC: LAB.DROPOF 02-22 12:13
PROVIDERS: PCP Nurse Practitioner Obstetrics & Gynecology; Visit Provider Nurse Practitioner Obstetrics & Gynecology
DX: O09.299 Supervision of pregnancy with other poor reproductive or obstetric history, unspecified trimester (principal); Z86.32 Personal history of gestational diabetes
CPT/HCPCS: 87086

== ENCOUNTER 2025-04-05 13:28 | Outpatient (CLI) | payer BC, SELFPAY ==
--- OUTSIDE RECORDS SUMMARY | 2025-04-05 13:33 | XMS_ITS | Clinical Summary ---
Author Organization [facility] Address [address], [address] [place] [address] Care Team Providers Care Pigment Supplier Name Role Phone Unavailable Primary Care Provider [...] diarrhea 05/05/2024 26 weeks gestation of 05/05/2024 Family History Medical History Relation Name Comments Other Mother ms Other Sister thyroid disease Relation Name Status Comments Mother Sister Social History Tobacco Use Types Packs/Day Years Used Date Smoking Tobacco: Never Smokeless Tobacco: Never Tobacco Cessation:Counseling Given: Not Answered Alcohol Use Standard Drinks/Week Comments Never 0 (1 standard drink = 0.6 oz pur e alcohol) [facility] Utilities Answer Date Recorded In the past 12 months has th e electric, gas, oil, or water company threatened to shut off services in your [...] things needed for daily living? No 07/31/2024 [place] Depression Scale Answer Date Recorded [place] Depression Scale Total 5 08/02/2024 The thought [...] any time in the past 12 m [facility], were you homeless or living in a jail (including now)? No 07/31/2024 Food Insecurity Answer [...] Procedure Name Priority Date/Time Associated Diagnosis Comments PAP SMEAR Routine 01/06/2024 12:00 PM EDT C.TRACHOMATIS N.GONORRHOEAE DNA, THIN PREP Routine 01/06/2024 12:00 PM EDT from Last 3 Months or Most Recently Relevant to Health Maintenance Results * C.trachomatis N.gonorrhoeae DNA, Thin Prep (01/06/2024 12:00 PM EDT) C. trachomatis DNA,Thin Prep NEGATIVE NEG 01/11/2024 1:21 PM EDT [facility] Comment: CHLAMYDIA TRACHOMATIS DNA not detected by [...] Prep NEGATIVE NEG 01/11/2024 1:21 PM EDT [facility] Comment: NEISSERIA GONORRHOEAE DNA not detected by [...] an alternative nucleic acid target. Performed at [facility], [address] [place] [id number] . Source Cervical 01/07/2024 1:08 PM EDT [facility] 01/06/2024 12:0 0 PM EDT 01/07/2024 1:09 PM EDT us Cherry Caro MD MICROBIOLOGY - GENERAL ORDERABL ES Final Result [facility] [address] [place] [address], [facility] [id number] [place] [address] * PAP SMEAR (01/06/2024 12:00 PM EDT) Cytology Thin Prep SEE BELOW 2023 9:06 AM EDT [facility] Comment: Path Number: [id number] DIAGNOSIS Cervical-Endocervical material, (Thin prep vial, Imaging-assisted [...] of cervix STD exposure Z36.89 Processing Lab: [address] [phone] Interpretation performed at [address] [phone] This Pap Test has been evaluated with the assistance of the ThinPrep Pap Test Imaging System. The Pap smear is a screening test primarily for squamous epithelial lesions, which is subject to both false negative and false positive results. Your patient should be reminded to consult you immediately if she experiences any suspicious signs or symptoms, regardless of her Pap smear result. GYNECOLOGIC CYTOLOGY REPORT Patient Name: GHADA ARCHIBALD [facility] Rec: [id number] [facility] [employer] [facility] ANATOMIC PATHOLOGY [address] [place] [phone] 01/06/2024 12:0 0 PM EDT 01/07/2024 1:09 PM EDT Cherry Caro MD PATHOLOGY/CYTOLOGY ORDERABLES F inal Result [facility] [address] [place] [address], [facility] [phone] [facility] [employer] [address] [place] [address], [facility] [phone] from Last 3 Months or Most Recently Relevant to Health Maintenance Insurance R Advance Directives * Full Code (Latest Code Status on File) Date Activated Date Inactivated Comments 07/31/2024 5:12 PM 08/01/2024 8:18 PM
[2025-04-05 14:22] LABS: Hematocrit 40.6 % (37.0-47.0); Hemoglobin 13.7 g/dL (12.2-16.2); Immature Granulocytes % 0.4 %; Mean Corpuscular HGB Conc 33.7 g/dL (31.8-35.4); Mean Corpuscular Hemoglobin 28.2 pg (27.0-31.2); Mean Corpuscular Volume 83.7 fl (81-99); Nucleated Red Blood Cells % 0 %; Platelet Count 275 K/mm3 (142-424); Red Blood Count 4.85 M/mm3 (4.20-5.40); Red Cell Distribution Width-SD 38.7 fL; White Blood Count 9.6 K/mm3 (4.8-10.8)
[2025-04-05 16:32] LABS: Hepatitis C Ab Qual. W/ RFX NEGATIVE (Negative)
[2025-04-06 09:24] LABS: RPR W/RFX Titers Nonreactive (Nonreactive)
[2025-04-07 10:17] LABS: Hepatitis B Surface Antigen Negative (Negative)
[2025-04-07 13:43] LABS: Rubella Antibodies, IgG 2.41 index (Immune >0.99)
== END 2025-04-05 23:59 | disposition home or self-care (01) ==
LOC: LAB 13:29
PROVIDERS: Visit Provider Nurse Practitioner Obstetrics & Gynecology
DX: O09.299 Supervision of pregnancy with other poor reproductive or obstetric history, unspecified trimester (principal); Z86.32 Personal history of gestational diabetes; Z3A.00 Weeks of gestation of pregnancy not specified
CPT/HCPCS: 36415; 85025; 86592; 86762; 86803; 86850; 87340; 87389